=== PATIENT | male | born 1985 | race Two or more races ===

== ENCOUNTER 2020-01-15 16:23 | Inpatient (IN) | payer MEDICAID, OTHER ==
[~2020-01-15] VITALS: Ht 180.3 cm; Wt 68.4 kg
[2020-01-15 16:54] LABS: Urine WBC None Seen /hpf (0 - 3)
[2020-01-15] MEDS ORDERED: FUROSEMIDE 40 MG/4 ML VIAL IV ONE (17:15)
[2020-01-15 17:20] LABS: Amphetamine Screen, Urine POSITIVE (NEGATIVE); Barbiturate Scree,Urine NEGATIVE (NEGATIVE); Benzodiazephine Screen, Urine NEGATIVE (NEGATIVE); Cannabinoid Screen, Urine NEGATIVE (NEGATIVE); Cocaine Screen, Urine NEGATIVE (NEGATIVE); Opiate Scree,Urine NEGATIVE (NEGATIVE); Phencyclidine Screen, Urine NEGATIVE (NEGATIVE)
[2020-01-15 17:27] LABS: Basophils # (auto) 0.1 10 ^3/uL (0-0.2); Basophils % (auto) 1.9 % (0.0-2.0); Eosinophils # (auto) 0.1 10 ^3/uL (0-0.8); Eosinophils % (auto) 1.7 % (0.0-7.0); Hematocrit 40.6 % (41.0-53.0); Hemoglobin 13.3 g/dL (13.5-17.5); Lymphocytes # (auto) 0.9 10 ^3/uL (0.4-5.4); Lymphocytes % (auto) 19.9 % (10.0-50.0); Mean Corpuscular Hemoglobin 30.5 pg (28.0-32.0); Mean Corpuscular Hgb Conc. 32.8 g/dL (32.0-36.0); Monocytes # (auto) 0.4 10 ^3/uL (0-1.3); Monocytes % (auto) 8.1 % (0.0-12.0); Neutrophils # (auto) 3.2 10 ^3/uL (1.6-8.6); Neutrophils % (auto) 68.4 % (37.0-80.0); Nucleated Red Blood Cells % 0.1 %; Platelet Count (auto) 254 10^3/uL (140-450); Red Blood Cells 4.37 10^6/uL (4.5-5.90); Red Cell Distribution Width 14.2 % (11.8-14.3); White Blood Cell 4.7 10^3/uL (4.4-10.8)
[2020-01-15 17:29] LABS: Urine Bacteria NONE SEEN /hpf (None Seen); Urine Blood Negative /uL (Negative); Urine Hyaline Cast FEW /lpf (0 - 2); Urine Specific Gravity 1.028 (1.001-1.035)
[2020-01-15 17:37] LABS: Albumin 2.7 g/dL (3.4-5.0); Anion Gap 10 (5-15); Blood Urea Nitrogen 14 mg/dL (7-18); Calcium 7.8 mg/dL (8.5-10.1); Carbon Dioxide 17 mmol/L (21-32); Chloride 106 mmol/L (98-107); Glucose 103 mg/dL (74-106); Potassium 4.1 mmol/L (3.5-5.1); Sodium 133 mmol/L (136-145)
[2020-01-15 17:42] LABS: Alanine Aminotransferase 78 U/L (16-61); Alkaline Phosphatase 126 U/L (45-117); Aspartate Aminotransferase 121 U/L (15-37); BUN/Creatinine Ratio 14.9; Bilirubin, Total 1.1 mg/dL (0.2-1.0); GFR African American 117 mL/min; GFR Non-African American 97 mL/min; Total Protein 6.5 g/dL (6.4-8.2)
[2020-01-15] MEDS ORDERED: NITROGLYCERIN 0.4 MG SL TAB SL PRN (18:30)
[2020-01-15] MEDS ORDERED: ONDANSETRON HCL 4 MG/2 ML VIAL IV PRN (18:30)
[2020-01-15] MEDS ORDERED: ACETAMINOPHEN 500 MG TAB PO PRN (18:30)
[2020-01-15] MEDS ORDERED: HYDROcodone-ACET 5/325MG TAB PO PRN (18:30)
[2020-01-15] MEDS ORDERED: LORazepam 2MG/ML-1ML VIAL IV PRN (18:30)
[2020-01-15] MEDS ORDERED: MORPHINE SULF INJ 2 MG/ML SYRINGE 1ML IV PRN ×2 (18:30)
[2020-01-15 22:00] VITALS: BP 116/65
[2020-01-15] MEDS: ATORVASTATIN 20 MG TAB PO SCH (22:00)
[2020-01-15] MEDS: CARVEDILOL 3.125 MG TAB PO SCH (22:32)
[2020-01-15 22:34] VITALS: BP 116/65
[2020-01-15] MEDS ORDERED: PNEUMOCOCCAL VACC POLYS 25 MCG/0.5 ML VIAL IM ONE (23:00)
[2020-01-16 05:00] VITALS: BP 128/78
[2020-01-16 06:18] LABS: Basophils # (auto) 0 10 ^3/uL (0-0.2); Basophils % (auto) 0.5 % (0.0-2.0); Eosinophils # (auto) 0.1 10 ^3/uL (0-0.8); Eosinophils % (auto) 1.1 % (0.0-7.0); Hematocrit 40.7 % (41.0-53.0); Hemoglobin 13.6 g/dL (13.5-17.5); Lymphocytes # (auto) 0.5 10 ^3/uL (0.4-5.4); Lymphocytes % (auto) 9.8 % (10.0-50.0); Mean Corpuscular Hemoglobin 30.6 pg (28.0-32.0); Mean Corpuscular Hgb Conc. 33.3 g/dL (32.0-36.0); Mean Corpuscular Volume 91.9 fL (80.0-100.0); Monocytes # (auto) 0.3 10 ^3/uL (0-1.3); Monocytes % (auto) 6.6 % (0.0-12.0); Neutrophils # (auto) 4.3 10 ^3/uL (1.6-8.6); Platelet Count (auto) 243 10^3/uL (140-450); Red Blood Cells 4.43 10^6/uL (4.5-5.90); Red Cell Distribution Width 14.1 % (11.8-14.3); White Blood Cell 5.2 10^3/uL (4.4-10.8)
[2020-01-16 06:24] LABS: INR 1.14 (0.9-1.15); Partial Thromboplastin Time 25.4 sec (23.64-32.05)
[2020-01-16 06:27] LABS: Chloride 103 mmol/L (98-107); Potassium 3.2 mmol/L (3.5-5.1); Sodium 134 mmol/L (136-145)
[2020-01-16 06:37] LABS: Anion Gap 11 (5-15); BUN/Creatinine Ratio 15.9; Blood Urea Nitrogen 13 mg/dL (7-18); Calcium 7.7 mg/dL (8.5-10.1); Carbon Dioxide 20 mmol/L (21-32); GFR African American 138 mL/min; GFR Non-African American 114 mL/min; Glucose 81 mg/dL (74-106); Magnesium 1.8 mg/dL (1.6-2.6)
[2020-01-16 08:33] VITALS: BP 128/82
[2020-01-16] MEDS: FAMOTIDINE 20 MG TAB PO SCH (09:33)
[2020-01-16] MEDS: LISINOPRIL 10 MG TAB PO SCH (09:34)
[2020-01-16] MEDS: CARVEDILOL 3.125 MG TAB PO SCH (09:34)
[2020-01-16] MEDS: ASPirin-EC 81 mg tab PO SCH (09:34)
[2020-01-16 12:33] VITALS: BP 113/79
[2020-01-16 14:06] LABS: Cholesterol 104 mg/dL (< 200)
[2020-01-16 14:08] LABS: HDL Cholesterol 48 mg/dL (40-59); LDL Cholesterol 57 mg/dL (< 100); Triglycerides 67 mg/dL (< 150)
[2020-01-16] MEDS ORDERED: POTASSIUM CHL 20 Meq TABLET PO ONE (14:30)
[2020-01-16] MEDS ORDERED: NICOTINE 14 MG/24HR TOPICAL PATCH TD ONE (15:00)
[2020-01-16 16:33] VITALS: BP 111/77
[2020-01-16] MEDS: FOLIC ACID 1 MG, MULTIPLE VITAMIN 10 ML, MAGNESIUM SULF SDV 50% 8 MEQ, THIAMINE INJ 100... INJ SCH ×5 (16:41)
[2020-01-16] MEDS: POTASSIUM CHL 20 Meq TABLET PO SCH (18:26)
[2020-01-16] MEDS: FUROSEMIDE 40 MG/4 ML VIAL IV SCH (18:26)
[2020-01-16] MEDS: CARVEDILOL 12.5 MG TAB PO SCH (18:27)
[2020-01-16 22:00] VITALS: BP 100/62
[2020-01-16] MEDS: ATORVASTATIN 20 MG TAB PO SCH (22:15)
[2020-01-17 05:00] VITALS: BP 102/66
[2020-01-17] MEDS: FUROSEMIDE 40 MG/4 ML VIAL IV SCH ×2 (06:00→18:00)
[2020-01-17 09:00] VITALS: BP 114/69
[2020-01-17] MEDS: POTASSIUM CHL 20 Meq TABLET PO SCH (10:00)
[2020-01-17] MEDS: ASPirin-EC 81 mg tab PO SCH (10:00)
[2020-01-17] MEDS ORDERED: NICOTINE 14 MG/24HR TOPICAL PATCH TD SCH (10:00)
[2020-01-17] MEDS: LISINOPRIL 10 MG TAB PO SCH (10:01)
[2020-01-17] MEDS: FAMOTIDINE 20 MG TAB PO SCH (10:01)
[2020-01-17] MEDS: CARVEDILOL 12.5 MG TAB PO SCH (10:01)
[2020-01-17] MEDS: FOLIC ACID 1 MG, MULTIPLE VITAMIN 10 ML, MAGNESIUM SULF SDV 50% 8 MEQ, THIAMINE INJ 100... INJ SCH ×5 (12:00)
[2020-01-17 13:00] VITALS: BP 89/62
[2020-01-17 17:00] VITALS: BP 104/64
[2020-01-17 21:01] VITALS: BP 103/72
[2020-01-17 21:46] VITALS: BP 103/72
== END 2020-01-17 20:08 | disposition home or self-care (01) | DRG 194 ==
LOC: ER 16:23 → TELE 16:24 → TELE-CENTR 16:24 → UNDOADMIN 16:24
PROVIDERS: ADMIT Nurse Practitioner Acute Care; ATTEND Family Medicine
DX: I50.43 Acute on chronic combined systolic (congestive) and diastolic (congestive) heart failure (principal); E44.0 Moderate protein-calorie malnutrition; I42.7 Cardiomyopathy due to drug and external agent; F17.210 Nicotine dependence, cigarettes, uncomplicated; F19.10 Other psychoactive substance abuse, uncomplicated; E87.6 Hypokalemia; F10.10 Alcohol abuse, uncomplicated; F15.10 Other stimulant abuse, uncomplicated; Z59.0 Homelessness; Z68.21 Body mass index [BMI] 21.0-21.9, adult; Z79.899 Other long term (current) drug therapy; K80.20 Calculus of gallbladder without cholecystitis without obstruction
CPT/HCPCS: 36415; 71045; 76705; 80048; 80053; 80061; 80307; 81001; 83735; 83880; 84443; 84484; 85025; 85610; 85730; 86141; 93306; G0378

== ENCOUNTER 2020-01-30 16:08 | Inpatient (IN) | payer MEDICAID ==
[~2020-01-30] VITALS: Ht 180.3 cm; Wt 67.5 kg
[2020-01-30] MEDS ORDERED: CLINDAMYCIN 600MG IV 50 ML IV ONE (16:45)
[2020-01-30] MEDS ORDERED: FUROSEMIDE 40 MG/4 ML VIAL IV ONE (17:45)
[2020-01-30 19:09] LABS: Basophils # (auto) 0 10 ^3/uL (0-0.2); Basophils % (auto) 0.7 % (0.0-2.0); Eosinophils # (auto) 0 10 ^3/uL (0-0.8); Eosinophils % (auto) 0.4 % (0.0-7.0); Hematocrit 39.9 % (41.0-53.0); Hemoglobin 13.1 g/dL (13.5-17.5); Lymphocytes # (auto) 0.9 10 ^3/uL (0.4-5.4); Lymphocytes % (auto) 13.2 % (10.0-50.0); Mean Corpuscular Hemoglobin 30.5 pg (28.0-32.0); Mean Corpuscular Hgb Conc. 32.8 g/dL (32.0-36.0); Mean Corpuscular Volume 93.2 fL (80.0-100.0); Monocytes # (auto) 0.5 10 ^3/uL (0-1.3); Monocytes % (auto) 7.8 % (0.0-12.0); Neutrophils # (auto) 5.4 10 ^3/uL (1.6-8.6); Neutrophils % (auto) 77.9 % (37.0-80.0); Nucleated Red Blood Cells % 0.1 %; Platelet Count (auto) 296 10^3/uL (140-450); Red Blood Cells 4.29 10^6/uL (4.5-5.90); Red Cell Distribution Width 14.9 % (11.8-14.3); White Blood Cell 6.9 10^3/uL (4.4-10.8)
[2020-01-30 19:19] LABS: Urine Bacteria FEW /hpf (None Seen); Urine Blood Negative /uL (Negative); Urine Hyaline Cast FEW /lpf (0 - 2); Urine Mucus FEW (None Seen); Urine Specific Gravity 1.009 (1.001-1.035); Urine WBC 12 /hpf (0 - 3)
[2020-01-30 19:23] LABS: Albumin 2.8 g/dL (3.4-5.0); Anion Gap 10 (5-15); Blood Urea Nitrogen 18 mg/dL (7-18); Calcium 8.2 mg/dL (8.5-10.1); Carbon Dioxide 18 mmol/L (21-32); Chloride 101 mmol/L (98-107); Glucose 113 mg/dL (74-106); Lactic Acid w/Reflex 2.1 mmol/L (0.4-2.0); Potassium 4.5 mmol/L (3.5-5.1); Sodium 129 mmol/L (136-145)
[2020-01-30 19:34] LABS: Alanine Aminotransferase 640 U/L (16-61); Alkaline Phosphatase 171 U/L (45-117); Aspartate Aminotransferase 1050 U/L (15-37); BUN/Creatinine Ratio 14.6; Bilirubin, Total 2.8 mg/dL (0.2-1.0); GFR African American 86 mL/min; GFR Non-African American 71 mL/min; Total Protein 7.1 g/dL (6.4-8.2)
[2020-01-30] MEDS ORDERED: ONDANSETRON HCL 4 MG/2 ML VIAL IV PRN (21:00)
[2020-01-30] MEDS ORDERED: NITROGLYCERIN 0.4 MG SL TAB SL PRN (21:30)
[2020-01-30] MEDS ORDERED: MORPHINE SULF INJ 2 MG/ML SYRINGE 1ML IV PRN (21:30)
[2020-01-30 21:36] LABS: Alcohol, Urine < 3.0 mg/dL (0-10); Amphetamine Screen, Urine POSITIVE (NEGATIVE); Barbiturate Scree,Urine NEGATIVE (NEGATIVE); Benzodiazephine Screen, Urine NEGATIVE (NEGATIVE); Cannabinoid Screen, Urine NEGATIVE (NEGATIVE); Cocaine Screen, Urine NEGATIVE (NEGATIVE); Phencyclidine Screen, Urine NEGATIVE (NEGATIVE)
[2020-01-30] MEDS: FOLIC ACID 1 MG, MULTIPLE VITAMIN 10 ML, MAGNESIUM SULF SDV 50% 8 MEQ, THIAMINE INJ 100... INJ SCH ×5 (21:40)
[2020-01-30 21:41] LABS: INR 1.4 (0.9-1.15); Partial Thromboplastin Time 26.2 sec (23.64-32.05)
[2020-01-30 21:43] LABS: Opiate Scree,Urine NEGATIVE (NEGATIVE)
[2020-01-30] MEDS: CARVEDILOL 3.125 MG TAB PO SCH (21:46)
[2020-01-30 22:00] VITALS: BP 120/80
[2020-01-30] MEDS ORDERED: ATORVASTATIN 20 MG TAB PO SCH (22:00)
--- NOTE | 2020-01-30 22:32 | NUR ---
Telemetry admit from [facility] MARTINS admitted to Telemetry unit after SBAR received. Patient oriented to SOHAM BHATTI RN primary RN, unit, room, bed, and unit policies regarding patient care and visiting hours. Patient now on continuous telemetry monitoring, tele box #73 and telemetry reading on arrival to unit is sinus rhythm at 99. Patient placed on bedside oxygen, weighed by bed scale and encouraged to call if they need something. All questions and concerns addressed, patient verbalized understanding.
--- NOTE | 2020-01-30 23:00 | NUR ---
LIFE VEST Patient states that he was prescribed a Zoll Life Vest on pervious admission. However, he has not being wearing it and does not have it with him due to the fact the "it's kind of tight". Patient educated on the importance and function of the Zoll life Vest.
--- NOTE | 2020-01-30 23:04 | NUR ---
NASAL SPECIMEN COLLECTED FOR MRSA. SWAB SENT TO LAB VIA [employer] [facility].
--- NOTE | 2020-01-31 | NUR ---
Patient is requesting Nicotine patch. Hospitalist paged to request orders. Awaiting call back.
[2020-01-31] MEDS: TEMAZEPAM 15 MG CAP PO PRN (00:12)
--- NOTE | 2020-01-31 00:30 | NUR ---
Received call from Hospitalist, Ji Brothers NP. New orders received. read back and verified. Will follow through.
--- NOTE | 2020-01-31 04:29 | NUR ---
ADMISSION ASSESSMENT Admission assessment completed via paper charting due to system downtime. Please see copy in hard chart.
[2020-01-31 05:07] VITALS: BP 111/90
[2020-01-31 05:35] LABS: Basophils # (auto) 0 10 ^3/uL (0-0.2); Basophils % (auto) 0.8 % (0.0-2.0); Eosinophils # (auto) 0 10 ^3/uL (0-0.8); Eosinophils % (auto) 0.7 % (0.0-7.0); Hematocrit 37.6 % (41.0-53.0); Hemoglobin 12.6 g/dL (13.5-17.5); Lymphocytes # (auto) 1.3 10 ^3/uL (0.4-5.4); Lymphocytes % (auto) 20.6 % (10.0-50.0); Mean Corpuscular Hemoglobin 31.1 pg (28.0-32.0); Mean Corpuscular Hgb Conc. 33.6 g/dL (32.0-36.0); Mean Corpuscular Volume 92.5 fL (80.0-100.0); Monocytes # (auto) 0.6 10 ^3/uL (0-1.3); Monocytes % (auto) 8.7 % (0.0-12.0); Neutrophils # (auto) 4.4 10 ^3/uL (1.6-8.6); Neutrophils % (auto) 69.2 % (37.0-80.0); Nucleated Red Blood Cells % 0.2 %; Platelet Count (auto) 275 10^3/uL (140-450); Red Blood Cells 4.06 10^6/uL (4.5-5.90); Red Cell Distribution Width 14.3 % (11.8-14.3); White Blood Cell 6.4 10^3/uL (4.4-10.8)
[2020-01-31 05:52] LABS: Albumin 2.5 g/dL (3.4-5.0); Calcium 7.7 mg/dL (8.5-10.1); Potassium 3.7 mmol/L (3.5-5.1)
[2020-01-31 05:55] LABS: BUN/Creatinine Ratio 16.9; Bilirubin, Total 2.6 mg/dL (0.2-1.0); Total Protein 6.5 g/dL (6.4-8.2)
[2020-01-31] MEDS ORDERED: FUROSEMIDE 20 MG/2 ML VIAL IV SCH (06:00)
[2020-01-31 09:00] VITALS: BP 112/71
[2020-01-31] MEDS: PANTOPRAZOLE 40 MG TAB PO SCH (09:28)
[2020-01-31] MEDS: CARVEDILOL 3.125 MG TAB PO SCH ×2 (09:28→22:00)
[2020-01-31] MEDS: LACTULOSE 20Gm/30ML SOLN PO SCH (09:29)
[2020-01-31] MEDS: NICOTINE 14 MG/24HR TOPICAL PATCH TD SCH (10:00)
[2020-01-31] MEDS: FOLIC ACID 1 MG, MULTIPLE VITAMIN 10 ML, MAGNESIUM SULF SDV 50% 8 MEQ, THIAMINE INJ 100... INJ SCH ×5 (12:09)
[2020-01-31 13:00] VITALS: BP 104/69
[2020-01-31 17:00] VITALS: BP 101/76
[2020-01-31] MEDS: FUROSEMIDE 40 MG/4 ML VIAL IV SCH (18:24)
[2020-01-31 22:00] VITALS: BP 102/69
[2020-01-31] MEDS: POTASSIUM CHL 10 Meq TABLET PO SCH (22:00)
[2020-02-01] MEDS: TEMAZEPAM 15 MG CAP PO PRN ×2 (00:12→22:10)
[2020-02-01] MEDS: chlordiazePOXIDE HCL 25 MG CAP PO PRN (01:27)
--- NOTE | 2020-02-01 03:24 | NUR ---
Pt again asking for something for sleep. Pt states, "They gave me something last night that was red and started with a D I think." This RN told him he had already had sleep medication and Librium to help him relax, and that doctors do not rx sleeping meds after 0230 as pt's then are too sleepy to talk with doctors or participate well in care.
[2020-02-01 05:00] VITALS: BP 100/60
[2020-02-01] MEDS: FUROSEMIDE 40 MG/4 ML VIAL IV SCH ×2 (06:00→17:41)
--- NOTE | 2020-02-01 06:39 | NUR ---
Lasix 40mg IVP held as pt's bp 100/60 and HR 58. Pt sleeping without s/sx discomfort. Will endorse to day RN.
[2020-02-01 06:59] LABS: INR 1.18 (0.9-1.15)
[2020-02-01 07:02] LABS: Albumin 2.3 g/dL (3.4-5.0); Calcium 7.6 mg/dL (8.5-10.1)
[2020-02-01 07:07] LABS: Bilirubin, Total 1.4 mg/dL (0.2-1.0); Total Protein 6.3 g/dL (6.4-8.2)
[2020-02-01 07:30] LABS: Potassium 2.8 mmol/L (3.5-5.1)
--- NOTE | 2020-02-01 07:30 | NUR ---
Opening Shift Note Assumed care of patient, awake and alert. No S/S of distress/SOB or pain. Instructed on POC and to call for assist PRN, will continue to monitor for changes Q1hr and PRN. Fall precautions in place per safety protocol.
--- NOTE | 2020-02-01 07:35 | NUR ---
Critical Lab Received critical lab value for potassium 2.8. Paged MD Mckeon for orders, awaiting call back at this time. Will cont to monitor patient.
[2020-02-01] MEDS: POTASSIUM CHL 20 Meq TABLET PO SCH ×3 (08:50→22:10)
[2020-02-01] MEDS: LISINOPRIL 5 MG TAB PO SCH (10:00)
[2020-02-01 10:07] LABS: Hepatitis B Surface Antibody Negative
[2020-02-01] MEDS: CARVEDILOL 3.125 MG TAB PO SCH ×2 (10:15→22:09)
[2020-02-01] MEDS: LACTULOSE 20Gm/30ML SOLN PO SCH (10:15)
[2020-02-01] MEDS: PANTOPRAZOLE 40 MG TAB PO SCH (10:15)
[2020-02-01] MEDS: POTASSIUM CHL 10 Meq TABLET PO SCH (10:15)
[2020-02-01] MEDS: NICOTINE 14 MG/24HR TOPICAL PATCH TD SCH (10:16)
[2020-02-01 10:38] LABS: Hepatitis A Total Antibody Positive
--- NOTE | 2020-02-01 11:45 | NUR ---
Hospitalist at bedside MD Mckeon at bedside, aware of patient status including low potassium and potassium supplements receive at this time. New orders for right rib xray and cmp order for 1300 received. Will carry out new orders and will cont to monitor patient.
[2020-02-01] MEDS: FOLIC ACID 1 MG, MULTIPLE VITAMIN 10 ML, MAGNESIUM SULF SDV 50% 8 MEQ, THIAMINE INJ 100... INJ SCH ×5 (11:52)
[2020-02-01 12:02] LABS: Hepatitis B Surface Antigen Negative (Negative); Hepatitis C Antibody Negative (Negative)
[2020-02-01 12:03] LABS: Hepatitis B Core Total AB Negative
[2020-02-01 13:45] LABS: Albumin 2.5 g/dL (3.4-5.0); Calcium 7.8 mg/dL (8.5-10.1); Potassium 3.8 mmol/L (3.5-5.1)
[2020-02-01 13:49] LABS: Bilirubin, Total 1.2 mg/dL (0.2-1.0); Total Protein 6.8 g/dL (6.4-8.2)
--- NOTE | 2020-02-01 14:15 | NUR ---
Cardiology Extra Hand ADÁN Ford at bedside. Orders for EKG received, Will carry out new orders and will cont to monitor patient.
[2020-02-01 17:00] VITALS: BP 93/72
--- NOTE | 2020-02-01 19:32 | NUR ---
Opening Shift Note Received report and assumed care of patient. Patient is awake and alert. No signs or symptoms of distress noted, patient currently denies pain. Instructed patient on plan of care and to call for assistance as needed. Will continue to monitor.
[2020-02-01 22:00] VITALS: BP 109/71
[2020-02-02 05:00] VITALS: BP 99/73
[2020-02-02] MEDS: chlordiazePOXIDE HCL 25 MG CAP PO PRN (06:01)
[2020-02-02] MEDS: FUROSEMIDE 40 MG/4 ML VIAL IV SCH ×2 (06:02→17:59)
[2020-02-02 07:46] LABS: Albumin 2.6 g/dL (3.4-5.0); Calcium 8.1 mg/dL (8.5-10.1); Magnesium 2.2 mg/dL (1.6-2.6); Potassium 3.2 mmol/L (3.5-5.1)
[2020-02-02 07:49] LABS: BUN/Creatinine Ratio 17.8; Bilirubin, Total 1.1 mg/dL (0.2-1.0); Total Protein 6.8 g/dL (6.4-8.2)
[2020-02-02 09:00] VITALS: BP 114/83
[2020-02-02] MEDS: LACTULOSE 20Gm/30ML SOLN PO SCH (09:49)
[2020-02-02] MEDS: CARVEDILOL 3.125 MG TAB PO SCH ×2 (09:51→21:08)
[2020-02-02] MEDS: NICOTINE 14 MG/24HR TOPICAL PATCH TD SCH (09:51)
[2020-02-02] MEDS: PANTOPRAZOLE 40 MG TAB PO SCH (09:51)
[2020-02-02] MEDS: POTASSIUM CHL 20 Meq TABLET PO SCH ×2 (09:51→21:08)
[2020-02-02] MEDS: LISINOPRIL 5 MG TAB PO SCH (10:00)
--- NOTE | 2020-02-02 10:54 | NUR ---
Hospitalist MD Mckeon at bedside, aware of patient status. No new orders received at this time. Per MD Mckeon Cont current POC. Will cont to monitor patient.
[2020-02-02] MEDS ORDERED: POTASSIUM CHL 20 Meq TABLET PO ONE (12:45)
[2020-02-02] MEDS: FOLIC ACID 1 MG, MULTIPLE VITAMIN 10 ML, MAGNESIUM SULF SDV 50% 8 MEQ, THIAMINE INJ 100... INJ SCH ×5 (12:46)
[2020-02-02 15:18] VITALS: BP 108/78
[2020-02-02 18:00] VITALS: BP 108/82
--- NOTE | 2020-02-02 19:08 | NUR ---
Endorse report to GEMMA Lee Patient in no distress, sob, or pain at this time.
[2020-02-02 20:00] VITALS: BP 104/64
[2020-02-02 22:00] VITALS: BP_SYST 101; BP_SYST 104; BP_DIAS 64
[2020-02-02] MEDS: TEMAZEPAM 15 MG CAP PO PRN (23:59)
--- NOTE | 2020-02-03 02:08 | NUR ---
rounds Patient is comfortably sleeping in bed. Breath sounds are even and unlabored. Bed at lowest locked position and call light within reach. Will continue to monitor PRN.
--- NOTE | 2020-02-03 03:29 | NUR ---
Opening Shift Note: Assumed care of patient. Patient asleep at this time. No S/S of distress/SOB or pain. Bed in lowest locked position, side rails up x 2, call light within reach. Patient will be instructed on POC and to call for assist PRN, will continue to monitor for changes Q1hr and PRN.
[2020-02-03 05:00] VITALS: BP 101/78
[2020-02-03] MEDS: FUROSEMIDE 40 MG/4 ML VIAL IV SCH ×2 (05:33→17:34)
[2020-02-03 07:44] LABS: Albumin 2.4 g/dL (3.4-5.0); Calcium 8.1 mg/dL (8.5-10.1); Potassium 3.3 mmol/L (3.5-5.1)
[2020-02-03 07:47] LABS: BUN/Creatinine Ratio 16.8
[2020-02-03 07:49] LABS: Total Protein 6.5 g/dL (6.4-8.2)
[2020-02-03 09:30] VITALS: BP 113/86
[2020-02-03] MEDS: PANTOPRAZOLE 40 MG TAB PO SCH (09:35)
[2020-02-03] MEDS: POTASSIUM CHL 20 Meq TABLET PO SCH ×2 (09:35→21:22)
[2020-02-03] MEDS: LACTULOSE 20Gm/30ML SOLN PO SCH (09:35)
[2020-02-03] MEDS: LISINOPRIL 5 MG TAB PO SCH (09:35)
[2020-02-03] MEDS: NICOTINE 14 MG/24HR TOPICAL PATCH TD SCH (09:35)
[2020-02-03] MEDS: CARVEDILOL 3.125 MG TAB PO SCH ×2 (09:36→21:24)
[2020-02-03 12:32] VITALS: BP 104/67
--- NOTE | 2020-02-03 14:17 | NUR ---
Patient made NPO at this time.
[2020-02-03] MEDS: FOLIC ACID 1 MG, MULTIPLE VITAMIN 10 ML, MAGNESIUM SULF SDV 50% 8 MEQ, THIAMINE INJ 100... INJ SCH ×5 (14:35)
[2020-02-03] MEDS ORDERED: POTASSIUM CHL 20 Meq TABLET PO ONE (15:15)
[2020-02-03 17:02] VITALS: BP 102/71
[2020-02-03] MEDS ORDERED: IOHEXOL 350 MG/ML 100ML IJ ONE (17:50)
--- NOTE | 2020-02-03 18:58 | NUR ---
CLOSING NOTE: Patient resting in bed. No S/S of pain or distress. Care endorsed to NOC RN.
--- NOTE | 2020-02-03 20:00 | NUR ---
Opening Shift Note Assumed care of patient, awake and alert. No S/S of distress/SOB or pain. Instructed on POC and to call for assist PRN, will continue to monitor for changes Q1hr and PRN.
[2020-02-03 22:00] VITALS: BP 106/63
[2020-02-04] MEDS: TEMAZEPAM 15 MG CAP PO PRN ×2 (01:51→22:33)
[2020-02-04 05:00] VITALS: BP 108/72
[2020-02-04 05:45] VITALS: BP 108/72
[2020-02-04] MEDS: FUROSEMIDE 40 MG/4 ML VIAL IV SCH ×2 (05:46→17:15)
[2020-02-04 06:08] LABS: Potassium 3.7 mmol/L (3.5-5.1)
[2020-02-04 06:22] LABS: Albumin 2.4 g/dL (3.4-5.0); Bilirubin, Direct 0.4 mg/dL (0-0.2); Bilirubin, Total 0.8 mg/dL (0.2-1.0); Total Protein 6.3 g/dL (6.4-8.2)
--- NOTE | 2020-02-04 07:23 | NUR ---
Care report given to Violeta Monsivais, patient is resting no distress.
--- NOTE | 2020-02-04 07:25 | NUR ---
Opening Shift Note: Assumed care of patient. Patient sleeping at this time. No S/S of distress/SOB or pain. Bed in lowest locked position, side rails up x 2, call light within reach. Patient instructed on POC and to call for assist PRN, will continue to monitor for changes Q1hr and PRN.
[2020-02-04 09:07] VITALS: BP 104/78
[2020-02-04] MEDS: CARVEDILOL 3.125 MG TAB PO SCH ×2 (09:22→21:34)
[2020-02-04] MEDS: LACTULOSE 20Gm/30ML SOLN PO SCH (09:22)
[2020-02-04] MEDS: POTASSIUM CHL 20 Meq TABLET PO SCH ×2 (09:23→21:31)
[2020-02-04] MEDS: PANTOPRAZOLE 40 MG TAB PO SCH (09:23)
[2020-02-04] MEDS: LISINOPRIL 5 MG TAB PO SCH (09:24)
[2020-02-04] MEDS: NICOTINE 14 MG/24HR TOPICAL PATCH TD SCH (09:24)
[2020-02-04] MEDS: FOLIC ACID 1 MG, MULTIPLE VITAMIN 10 ML, MAGNESIUM SULF SDV 50% 8 MEQ, THIAMINE INJ 100... INJ SCH ×5 (12:00)
[2020-02-04] MEDS ORDERED: levoFLOXacin 750MG 150 ML IV ONE (12:15)
[2020-02-04 12:47] VITALS: BP 101/67
--- NOTE | 2020-02-04 14:50 | NUR ---
Nutrition Assessment Notes Please refer to link for full assessment notes. Est Energy needs: 1396-5021 kcals (30-35 kcal/kgBW) Est Protein needs: 86-98 gms/day (0.8-1.0 gm/kgBW) d/t liver disease Will continue to monitor and reassess prn. Addendum: 02/04/20 at [address] Amended: Links added.
--- NOTE | 2020-02-04 15:45 | NUR ---
IV insertion: IV access obtained, via clean sterile technique by inserting 20 gauge catheter at left forearm after 1 attempt. IV secured properly. No trauma to site. Patient tolerated well. IV removal: 20 g right forearm IV DC'd with clean sterile technique, catheter fully intact. Pressure dressing applied to site. Patient tolerated well.
[2020-02-04 17:31] VITALS: BP 105/71
--- NOTE | 2020-02-04 18:56 | NUR ---
CLOSING NOTE: Patient resting in bed. No S/S of SOB, pain or distress. Care endorsed to NOC RN.
--- NOTE | 2020-02-04 20:00 | NUR ---
Opening Shift Note Assumed care of patient, awake and alert. No S/S of distress/SOB or pain. Instructed on POC and to call for assist PRN, will continue to monitor for changes Q1hr and PRN.Asked for snack, given herb cummings.
[2020-02-04 22:00] VITALS: BP 107/61
[2020-02-05 05:00] VITALS: BP 102/59
[2020-02-05] MEDS: FUROSEMIDE 40 MG/4 ML VIAL IV SCH ×2 (05:48→18:39)
[2020-02-05 07:14] LABS: Albumin 2.6 g/dL (3.4-5.0); Calcium 8.8 mg/dL (8.5-10.1); Magnesium 2.3 mg/dL (1.6-2.6); Potassium 4.2 mmol/L (3.5-5.1)
[2020-02-05 07:17] LABS: BUN/Creatinine Ratio 15.1; Bilirubin, Total 0.7 mg/dL (0.2-1.0); Total Protein 6.9 g/dL (6.4-8.2)
--- NOTE | 2020-02-05 07:22 | NUR ---
Report given to Violeta Monsivais, patient is resting no distress.
--- NOTE | 2020-02-05 07:24 | NUR ---
Opening Shift Note: Assumed care of patient. Patient asleep at this time. No S/S of distress/SOB or pain. Bed in lowest locked position, side rails up x 2, call light within reach. Patient instructed on POC and to call for assist PRN, will continue to monitor for changes Q1hr and PRN.
[2020-02-05 09:00] VITALS: BP 113/78
[2020-02-05] MEDS: levoFLOXacin 750MG 150 ML IV SCH (09:28)
[2020-02-05] MEDS: LACTULOSE 20Gm/30ML SOLN PO SCH (09:28)
[2020-02-05] MEDS: POTASSIUM CHL 20 Meq TABLET PO SCH ×2 (09:29→21:44)
[2020-02-05] MEDS: PANTOPRAZOLE 40 MG TAB PO SCH (09:29)
[2020-02-05] MEDS: CARVEDILOL 3.125 MG TAB PO SCH ×2 (09:29→21:44)
[2020-02-05] MEDS: NICOTINE 14 MG/24HR TOPICAL PATCH TD SCH (09:30)
[2020-02-05] MEDS: LISINOPRIL 5 MG TAB PO SCH (09:30)
[2020-02-05] MEDS: FOLIC ACID 1 MG, MULTIPLE VITAMIN 10 ML, MAGNESIUM SULF SDV 50% 8 MEQ, THIAMINE INJ 100... INJ SCH ×5 (12:00)
[2020-02-05 13:00] VITALS: BP 107/63
--- NOTE | 2020-02-05 15:30 | NUR ---
THORACENTESIS COMPLETED BY DR GIANG IN ULTRASOUND. PT TOLERATED WELL. 900 ML OF PLEURAL FLUID REMOVED AND SENT TO LAB. POST CXR DONE.
--- NOTE | 2020-02-05 16:43 | NUR ---
ss consult Per consult no PCP. Lorena Ewing seen patient for PCP. Addendum: 02/05/20 at 1643 by Lorena LEONARD Amended: Links added.
[2020-02-05 17:00] VITALS: BP 97/73
[2020-02-05] MEDS: TEMAZEPAM 15 MG CAP PO PRN (21:44)
[2020-02-05 22:00] VITALS: BP 120/73
--- NOTE | 2020-02-06 02:57 | NUR ---
CLOSING NOTE: Patient asleep in bed. No S/S of SOB or distress. Care endorsed.
[2020-02-06 05:00] VITALS: BP 97/69
[2020-02-06 05:40] LABS: Basophils # (auto) 0.1 10 ^3/uL (0-0.2); Basophils % (auto) 1.2 % (0.0-2.0); Eosinophils # (auto) 0.1 10 ^3/uL (0-0.8); Eosinophils % (auto) 1.7 % (0.0-7.0); Hematocrit 42.2 % (41.0-53.0); Hemoglobin 13.9 g/dL (13.5-17.5); Lymphocytes # (auto) 1.4 10 ^3/uL (0.4-5.4); Lymphocytes % (auto) 26.2 % (10.0-50.0); Mean Corpuscular Hemoglobin 30.3 pg (28.0-32.0); Mean Corpuscular Volume 91.9 fL (80.0-100.0); Monocytes # (auto) 0.5 10 ^3/uL (0-1.3); Monocytes % (auto) 9.7 % (0.0-12.0); Neutrophils # (auto) 3.2 10 ^3/uL (1.6-8.6); Neutrophils % (auto) 61.2 % (37.0-80.0); Nucleated Red Blood Cells % 0.2 %; Platelet Count (auto) 298 10^3/uL (140-450); Red Cell Distribution Width 14.6 % (11.8-14.3); White Blood Cell 5.2 10^3/uL (4.4-10.8)
[2020-02-06 05:56] LABS: Calcium 8.3 mg/dL (8.5-10.1); Potassium 3.9 mmol/L (3.5-5.1)
[2020-02-06 06:01] LABS: Albumin 2.4 g/dL (3.4-5.0); BUN/Creatinine Ratio 22.4; Bilirubin, Total 0.6 mg/dL (0.2-1.0); Total Protein 6.4 g/dL (6.4-8.2)
[2020-02-06] MEDS: FUROSEMIDE 40 MG/4 ML VIAL IV SCH (06:33)
[2020-02-06 09:00] VITALS: BP 95/66
[2020-02-06] MEDS: CARVEDILOL 3.125 MG TAB PO SCH (10:00)
[2020-02-06] MEDS: LISINOPRIL 5 MG TAB PO SCH (10:00)
[2020-02-06] MEDS: LACTULOSE 20Gm/30ML SOLN PO SCH (10:32)
[2020-02-06] MEDS: POTASSIUM CHL 20 Meq TABLET PO SCH (10:33)
[2020-02-06] MEDS: PANTOPRAZOLE 40 MG TAB PO SCH (10:33)
[2020-02-06] MEDS: NICOTINE 14 MG/24HR TOPICAL PATCH TD SCH (10:34)
[2020-02-06] MEDS: levoFLOXacin 750MG 150 ML IV SCH (10:35)
--- NOTE | 2020-02-06 10:39 | NUR ---
Per social economist Arleen, patient refusing rehab resources.
[2020-02-06] MEDS ORDERED: FURO1TAB31 PO (12:12)
[2020-02-06] MEDS ORDERED: CAR3125T PO (12:12)
[2020-02-06] MEDS ORDERED: NIC21P TOP (12:12)
[2020-02-06] MEDS ORDERED: POTA-220 PO (12:12)
[2020-02-06] MEDS ORDERED: PANT40T PO (12:12)
[2020-02-06] MEDS ORDERED: ASPI-378 PO (12:12)
[2020-02-06] MEDS ORDERED: LISI-275 PO (12:12)
[2020-02-06] MEDS ORDERED: LEVO500T21 PO (12:12)
[2020-02-06 13:00] VITALS: BP 101/76
[2020-02-06] MEDS: chlordiazePOXIDE HCL 25 MG CAP PO PRN (14:03)
--- NOTE | 2020-02-06 15:14 | NUR ---
Discharge instructions given as ordered. Encourage to follow up with PMD as instructed. INSTRUCTED TO FOLLOW UP WITH POST-DISCHARGE OFFICE ALONG WITH Melissa HENSON AND Melissa BELTRÁN FOR CARDIOLOGY. PROVIDED PRESCRIPTION FOR FOLLOW UP LABS AND INSTRUCTED TO DISCONTINUE METH USE. PATIENT REFUSING REHAB RESOURCES.All questions and concerns addressed. Patient verbalized understanding. Medication reconciliation form completed and copy given to patient. IV removed with catheter intact, pressure dressing applied. Telemetry unit returned to ICU. Patient taken to vehicle via wheelchair with all personal belongings, accompanied by staff and family member. No distress noted at time of departure.
--- NOTE | 2020-02-06 17:16 | NUR ---
Assessment Patient is a 34-year-old male who is alert and oriented. Prior to admission patient lived with family and functioned independently. Advised patient there is a social service consult for substance abuse with meth. Patient stated he does not need any additional help. Patient refused resources. Informed GEMMA Workman. Addendum: 02/06/20 at 1719 by ISABEL LEONARD Amended: Links added.
== END 2020-02-06 15:14 | disposition home or self-care (01) | DRG 194 ==
LOC: ER 16:08 → TELE 16:09 → UNDOADMIN 16:09 → TELE-WESTW 16:09 → TELE 21:59
PROVIDERS: ADMIT Nurse Practitioner; ATTEND Internal Medicine
PROC: 0W993ZZ Drainage of Right Pleural Cavity, Percutaneous Approach (ICD-10-PCS; principal; 2020-02-05)
DX: I50.43 Acute on chronic combined systolic (congestive) and diastolic (congestive) heart failure (principal); J18.9 Pneumonia, unspecified organism; E44.0 Moderate protein-calorie malnutrition; I42.0 Dilated cardiomyopathy; J91.8 Pleural effusion in other conditions classified elsewhere; K70.9 Alcoholic liver disease, unspecified; E87.1 Hypo-osmolality and hyponatremia; Z91.14 Patient's other noncompliance with medication regimen; R79.89 Other specified abnormal findings of blood chemistry; E87.6 Hypokalemia; F17.210 Nicotine dependence, cigarettes, uncomplicated; F15.10 Other stimulant abuse, uncomplicated; K80.20 Calculus of gallbladder without cholecystitis without obstruction; Z59.0 Homelessness; Z71.6 Tobacco abuse counseling; F19.10 Other psychoactive substance abuse, uncomplicated; F10.10 Alcohol abuse, uncomplicated; Z68.22 Body mass index [BMI] 22.0-22.9, adult
CPT/HCPCS: 10022; 32555; 36415; 71045; 71046; 71101; 71275; 76700; 76942; 80053; 80076; 80307; 80320; 81001; 82140; 83605; 83735; 83880; 83986; 84132; 84484; 85025; 85379; 85610; 85730; 86704; 86706; 86708; 86803; 87040; 87205; 87340; 89051; 93970; 96365; 96366; 96375; 97163; G0378; J1956; J3490

== ENCOUNTER 2020-03-29 20:16 | Inpatient (IN) | payer MEDICAID, OTHER ==
[~2020-03-29] VITALS: Ht 180.3 cm; Wt 72.2 kg
[~2020-03-29 20:16] MED LIST: ASPI-378 PO; CAR3125T PO; FURO1TAB31 PO; LEVO500T21 PO; LISI-275 PO; NIC21P TOP; PANT40T PO; POTA-220 PO
[2020-03-29 22:48] LABS: Basophils # (auto) 0.3 10 ^3/uL (0-0.2); Basophils % (auto) 3.6 % (0.0-2.0); Eosinophils # (auto) 0.1 10 ^3/uL (0-0.8); Eosinophils % (auto) 0.8 % (0.0-7.0); Hematocrit 41.5 % (41.0-53.0); Hemoglobin 13.1 g/dL (13.5-17.5); Lymphocytes # (auto) 1.9 10 ^3/uL (0.4-5.4); Lymphocytes % (auto) 27.8 % (10.0-50.0); Mean Corpuscular Hemoglobin 29.2 pg (28.0-32.0); Mean Corpuscular Hgb Conc. 31.6 g/dL (32.0-36.0); Mean Corpuscular Volume 92.3 fL (80.0-100.0); Monocytes # (auto) 0.5 10 ^3/uL (0-1.3); Monocytes % (auto) 7.1 % (0.0-12.0); Neutrophils # (auto) 4.2 10 ^3/uL (1.6-8.6); Neutrophils % (auto) 60.7 % (37.0-80.0); Nucleated Red Blood Cells % 0.1 %; Platelet Count (auto) 320 10^3/uL (140-450); Red Cell Distribution Width 19.3 % (11.8-14.3); White Blood Cell 6.9 10^3/uL (4.4-10.8)
[2020-03-29 23:04] LABS: Albumin 3.4 g/dL (3.4-5.0); Anion Gap 6 (5-15); Blood Urea Nitrogen 10 mg/dL (7-18); Calcium 8.7 mg/dL (8.5-10.1); Carbon Dioxide 26 mmol/L (21-32); Chloride 103 mmol/L (98-107); Glucose 90 mg/dL (74-106); Potassium 3.9 mmol/L (3.5-5.1); Sodium 135 mmol/L (136-145)
[2020-03-29 23:10] LABS: Alanine Aminotransferase 45 U/L (16-61); Alkaline Phosphatase 172 U/L (45-117); Aspartate Aminotransferase 81 U/L (15-37); GFR African American 72 mL/min; GFR Non-African American 59 mL/min; Total Protein 8.1 g/dL (6.4-8.2)
[2020-03-29 23:31] LABS: INR 1.29 (0.9-1.15); Partial Thromboplastin Time 25.6 sec (23.0-31.2)
[2020-03-30] MEDS ORDERED: FUROSEMIDE 20 MG/2 ML VIAL IV ONE (02:45)
[2020-03-30] MEDS ORDERED: DexAMETHasone SOD PHOS 10MG/1ML VIAL INJ IV ONE (03:00)
[2020-03-30] MEDS ORDERED: DOXYCYCLINE 100MG/250ML 250 ML IV ONE (03:00)
[2020-03-30] MEDS ORDERED: ACETAMINOPHEN 500 MG TAB PO PRN (03:30)
[2020-03-30] MEDS ORDERED: LORazepam 0.5 MG TAB PO PRN (03:30)
[2020-03-30] MEDS ORDERED: MORPHINE SULF INJ 2 MG/ML SYRINGE 1ML IV PRN ×2 (03:30)
[2020-03-30] MEDS ORDERED: HYDROcodone-ACET 5/325MG TAB PO PRN (03:30)
[2020-03-30] MEDS ORDERED: ONDANSETRON HCL 4 MG/2 ML VIAL IV PRN (03:30)
[2020-03-30] MEDS ORDERED: NITROGLYCERIN 0.4 MG SL TAB SL PRN (03:30)
[2020-03-30] MEDS ORDERED: ACETAMINOPHEN 325 MG TAB PO PRN (03:30)
[2020-03-30] MEDS ORDERED: DOCUSATE SOD 100 MG CAP PO PRN (03:30)
[2020-03-30] MEDS ORDERED: ALBUTEROL SULF HFA 90MCG INH 200DOSE IN SCH (06:00)
[2020-03-30 06:32] LABS: Basophils # (auto) 0 10 ^3/uL (0-0.2); Basophils % (auto) 0.5 % (0.0-2.0); Eosinophils # (auto) 0 10 ^3/uL (0-0.8); Eosinophils % (auto) 0.4 % (0.0-7.0); Hematocrit 37.9 % (41.0-53.0); Hemoglobin 12.3 g/dL (13.5-17.5); Lymphocytes # (auto) 0.5 10 ^3/uL (0.4-5.4); Lymphocytes % (auto) 8.6 % (10.0-50.0); Mean Corpuscular Hemoglobin 29.9 pg (28.0-32.0); Mean Corpuscular Hgb Conc. 32.5 g/dL (32.0-36.0); Mean Corpuscular Volume 92.1 fL (80.0-100.0); Monocytes # (auto) 0.2 10 ^3/uL (0-1.3); Monocytes % (auto) 3.2 % (0.0-12.0); Neutrophils # (auto) 5.4 10 ^3/uL (1.6-8.6); Neutrophils % (auto) 87.3 % (37.0-80.0); Nucleated Red Blood Cells % 0.1 %; Platelet Count (auto) 321 10^3/uL (140-450); Red Blood Cells 4.12 10^6/uL (4.5-5.90); Red Cell Distribution Width 18.8 % (11.8-14.3); White Blood Cell 6.2 10^3/uL (4.4-10.8)
[2020-03-30 06:49] LABS: Urine Bacteria NONE SEEN /hpf (None Seen); Urine Blood Negative /uL (Negative); Urine Hyaline Cast FEW /lpf (0 - 2); Urine Mucus FEW (None Seen); Urine Specific Gravity 1.018 (1.001-1.035); Urine WBC 1 /hpf (0 - 3)
[2020-03-30 06:51] LABS: Calcium 8.3 mg/dL (8.5-10.1); Magnesium 2.2 mg/dL (1.6-2.6); Potassium 3.7 mmol/L (3.5-5.1)
[2020-03-30 06:56] LABS: BUN/Creatinine Ratio 8.4
[2020-03-30 07:04] LABS: Alcohol, Urine < 3.0 mg/dL (0-10); Amphetamine Screen, Urine POSITIVE (NEGATIVE); Barbiturate Scree,Urine NEGATIVE (NEGATIVE); Benzodiazephine Screen, Urine NEGATIVE (NEGATIVE); Cannabinoid Screen, Urine NEGATIVE (NEGATIVE); Cocaine Screen, Urine NEGATIVE (NEGATIVE); Opiate Scree,Urine NEGATIVE (NEGATIVE); Phencyclidine Screen, Urine NEGATIVE (NEGATIVE)
[2020-03-30 10:00] VITALS: BP 108/84
[2020-03-30] MEDS: FUROSEMIDE 40 MG/4 ML VIAL IV SCH ×2 (10:33→21:55)
[2020-03-30] MEDS: ZINC SULFATE 220mg CAP or TAB PO SCH (10:34)
[2020-03-30] MEDS: ENOXAPARIN SOD 40 MG/0.4 ML SYRINGE SC SCH (10:34)
[2020-03-30] MEDS: ASCORBIC ACID 1,000 MG TAB PO SCH (10:34)
[2020-03-30] MEDS: DOXYCYCLINE 100 MG TAB/CAP PO SCH ×2 (10:34→21:55)
[2020-03-30 13:00] VITALS: BP 107/84
[2020-03-30 17:00] VITALS: BP 117/77
[2020-03-30 20:00] VITALS: BP 108/84
[2020-03-30 22:00] VITALS: BP 117/86
[2020-03-31 05:00] VITALS: BP 114/82
[2020-03-31 07:37] LABS: Basophils # (auto) 0 10 ^3/uL (0-0.2); Basophils % (auto) 0.1 % (0.0-2.0); Eosinophils # (auto) 0 10 ^3/uL (0-0.8); Eosinophils % (auto) 0.1 % (0.0-7.0); Hematocrit 40.3 % (41.0-53.0); Hemoglobin 13.2 g/dL (13.5-17.5); Lymphocytes # (auto) 1.1 10 ^3/uL (0.4-5.4); Lymphocytes % (auto) 11.7 % (10.0-50.0); Mean Corpuscular Hemoglobin 30.3 pg (28.0-32.0); Mean Corpuscular Hgb Conc. 32.8 g/dL (32.0-36.0); Mean Corpuscular Volume 92.5 fL (80.0-100.0); Monocytes # (auto) 0.4 10 ^3/uL (0-1.3); Monocytes % (auto) 4.5 % (0.0-12.0); Neutrophils # (auto) 7.7 10 ^3/uL (1.6-8.6); Neutrophils % (auto) 83.6 % (37.0-80.0); Nucleated Red Blood Cells % 0.1 %; Platelet Count (auto) 338 10^3/uL (140-450); Red Blood Cells 4.36 10^6/uL (4.5-5.90); Red Cell Distribution Width 19.7 % (11.8-14.3); White Blood Cell 9.2 10^3/uL (4.4-10.8)
[2020-03-31 07:57] LABS: Albumin 2.9 g/dL (3.4-5.0); Calcium 8.3 mg/dL (8.5-10.1); Potassium 3.6 mmol/L (3.5-5.1)
[2020-03-31 08:02] LABS: Bilirubin, Total 2.2 mg/dL (0.2-1.0); Total Protein 7.2 g/dL (6.4-8.2)
[2020-03-31 09:00] VITALS: BP 118/82
[2020-03-31] MEDS ORDERED: cefTRIAXone 1GM/50ML D5W 50 ML IV ONE (09:15)
[2020-03-31] MEDS: DOXYCYCLINE 100 MG TAB/CAP PO SCH ×2 (09:41→22:04)
[2020-03-31] MEDS: ASCORBIC ACID 1,000 MG TAB PO SCH (09:42)
[2020-03-31] MEDS: FUROSEMIDE 40 MG/4 ML VIAL IV SCH ×2 (09:42→22:04)
[2020-03-31] MEDS: ENOXAPARIN SOD 40 MG/0.4 ML SYRINGE SC SCH (09:42)
[2020-03-31] MEDS: ZINC SULFATE 220mg CAP or TAB PO SCH (09:42)
[2020-03-31 13:00] VITALS: BP 109/74
[2020-03-31] MEDS ORDERED: DOXYCYCLINE 100 MG TAB/CAP PO ONE (13:15)
[2020-03-31] MEDS ORDERED: POTASSIUM EFFERVESENT TAB 25 MEQ PO ONE ×2 (13:15→15:45)
[2020-03-31 16:54] VITALS: BP 110/78
[2020-03-31 22:00] VITALS: BP 104/80
[2020-04-01 05:00] VITALS: BP 114/87
[2020-04-01 08:52] VITALS: BP 115/81
[2020-04-01] MEDS: ENOXAPARIN SOD 40 MG/0.4 ML SYRINGE SC SCH (08:57)
[2020-04-01] MEDS: ZINC SULFATE 220mg CAP or TAB PO SCH (08:58)
[2020-04-01] MEDS: FUROSEMIDE 40 MG/4 ML VIAL IV SCH (08:58)
[2020-04-01] MEDS: DOXYCYCLINE 100 MG TAB/CAP PO SCH (08:58)
[2020-04-01] MEDS ORDERED: cefTRIAXone 1GM/50ML D5W 50 ML IV SCH (09:00)
[2020-04-01] MEDS ORDERED: POTASSIUM EFFERVESENT TAB 25 MEQ PO SCH (10:00)
== END 2020-04-01 10:30 | disposition left against medical advice (07) | DRG 194 ==
LOC: ER 20:16 → TELE 20:17 → TELE-EAST 03-30 10:03 → TELE-CENTR 03-30 13:12
PROVIDERS: ADMIT Hospitalist; ATTEND Internal Medicine Nephrology
DX: I50.43 Acute on chronic combined systolic (congestive) and diastolic (congestive) heart failure (principal); L03.115 Cellulitis of right lower limb; I42.7 Cardiomyopathy due to drug and external agent; N17.0 Acute kidney failure with tubular necrosis; F15.250 Other stimulant dependence with stimulant-induced psychotic disorder with delusions; F17.210 Nicotine dependence, cigarettes, uncomplicated; I25.10 Atherosclerotic heart disease of native coronary artery without angina pectoris; R74.0 Nonspecific elevation of levels of transaminase and lactic acid dehydrogenase [LDH]; Z59.0 Homelessness; I42.0 Dilated cardiomyopathy; K70.9 Alcoholic liver disease, unspecified; K75.9 Inflammatory liver disease, unspecified; L03.116 Cellulitis of left lower limb; Z20.828 Contact with and (suspected) exposure to other viral communicable diseases; Z91.14 Patient's other noncompliance with medication regimen; Z91.19 Patient's noncompliance with other medical treatment and regimen; I47.2 Ventricular tachycardia; Z53.29 Procedure and treatment not carried out because of patient's decision for other reasons; Z79.899 Other long term (current) drug therapy
CPT/HCPCS: 36415; 71045; 80048; 80053; 80061; 80307; 81001; 83605; 83735; 83880; 84484; 85025; 85610; 85730; 87040; 93005; G0378; J0696; J1100; J3490

== ENCOUNTER 2020-04-13 12:44 | Emergency (ER) | payer MEDICAID, OTHER ==
[~2020-04-13] VITALS: Ht 180.3 cm; Wt 72.6 kg
[2020-04-13 13:43] LABS: Amphetamine Screen, Urine POSITIVE (NEGATIVE); Barbiturate Scree,Urine NEGATIVE (NEGATIVE); Benzodiazephine Screen, Urine NEGATIVE (NEGATIVE); Cannabinoid Screen, Urine NEGATIVE (NEGATIVE); Cocaine Screen, Urine NEGATIVE (NEGATIVE); Urine Bacteria FEW /hpf (None Seen); Urine Blood Negative /uL (Negative); Urine Hyaline Cast MOD /lpf (0 - 2); Urine Mucus FEW (None Seen); Urine Specific Gravity 1.017 (1.001-1.035); Urine WBC 2 /hpf (0 - 3)
[2020-04-13 13:51] LABS: Opiate Scree,Urine NEGATIVE (NEGATIVE); Phencyclidine Screen, Urine NEGATIVE (NEGATIVE)
[2020-04-13 15:41] LABS: Basophils # (auto) 0 10 ^3/uL (0-0.2); Basophils % (auto) 1.2 % (0.0-2.0); Eosinophils # (auto) 0 10 ^3/uL (0-0.8); Eosinophils % (auto) 0.9 % (0.0-7.0); Hematocrit 38.8 % (41.0-53.0); Hemoglobin 12.5 g/dL (13.5-17.5); Lymphocytes # (auto) 1.2 10 ^3/uL (0.4-5.4); Lymphocytes % (auto) 29.6 % (10.0-50.0); Mean Corpuscular Hemoglobin 30.1 pg (28.0-32.0); Mean Corpuscular Hgb Conc. 32.2 g/dL (32.0-36.0); Mean Corpuscular Volume 93.3 fL (80.0-100.0); Monocytes # (auto) 0.5 10 ^3/uL (0-1.3); Monocytes % (auto) 11.1 % (0.0-12.0); Neutrophils # (auto) 2.3 10 ^3/uL (1.6-8.6); Neutrophils % (auto) 57.2 % (37.0-80.0); Nucleated Red Blood Cells % 0.2 %; Platelet Count (auto) 196 10^3/uL (140-450); Red Blood Cells 4.16 10^6/uL (4.5-5.90); Red Cell Distribution Width 18.8 % (11.8-14.3); White Blood Cell 4.1 10^3/uL (4.4-10.8)
[2020-04-13 15:57] LABS: Albumin 3.1 g/dL (3.4-5.0); Calcium 7.8 mg/dL (8.5-10.1)
[2020-04-13 16:00] LABS: BUN/Creatinine Ratio 4.9; Bilirubin, Total 2.6 mg/dL (0.2-1.0); Total Protein 7.1 g/dL (6.4-8.2)
[2020-04-13 16:11] LABS: Potassium 2.7 mmol/L (3.5-5.1)
[2020-04-13] MEDS ORDERED: POTASSIUM EFFERVESENT TAB 25 MEQ PO ONE (16:30)
[2020-04-13 17:13] VITALS: BP 106/78
== END 2020-04-13 17:14 | disposition home or self-care (01) ==
LOC: ER 12:44
DX: F15.20 Other stimulant dependence, uncomplicated (principal); F10.10 Alcohol abuse, uncomplicated; E87.6 Hypokalemia; J18.9 Pneumonia, unspecified organism; I50.9 Heart failure, unspecified; F17.210 Nicotine dependence, cigarettes, uncomplicated
CPT/HCPCS: 36415; 71045; 80053; 80307; 81001; 83880; 85025; 93970

== ENCOUNTER 2020-04-17 08:21 | Inpatient (IN) | payer OTHER ==
[~2020-04-17] VITALS: Ht 180.3 cm; Wt 82.7 kg
[2020-04-17 08:51] LABS: Basophils # (auto) 0.1 10 ^3/uL (0-0.2); Basophils % (auto) 1.2 % (0.0-2.0); Eosinophils # (auto) 0 10 ^3/uL (0-0.8); Eosinophils % (auto) 0.7 % (0.0-7.0); Hematocrit 39.6 % (41.0-53.0); Hemoglobin 12.9 g/dL (13.5-17.5); Lymphocytes # (auto) 1.1 10 ^3/uL (0.4-5.4); Lymphocytes % (auto) 20.1 % (10.0-50.0); Mean Corpuscular Hemoglobin 30.7 pg (28.0-32.0); Mean Corpuscular Hgb Conc. 32.7 g/dL (32.0-36.0); Mean Corpuscular Volume 93.9 fL (80.0-100.0); Monocytes # (auto) 0.3 10 ^3/uL (0-1.3); Monocytes % (auto) 6.1 % (0.0-12.0); Neutrophils % (auto) 71.9 % (37.0-80.0); Nucleated Red Blood Cells % 0.2 %; Platelet Count (auto) 201 10^3/uL (140-450); Red Blood Cells 4.22 10^6/uL (4.5-5.90); Red Cell Distribution Width 18.9 % (11.8-14.3); White Blood Cell 5.6 10^3/uL (4.4-10.8)
[2020-04-17 08:53] LABS: Urine Bacteria FEW /hpf (None Seen); Urine Blood Negative /uL (Negative); Urine Hyaline Cast MOD /lpf (0 - 2); Urine Mucus FEW (None Seen); Urine Specific Gravity 1.021 (1.001-1.035); Urine WBC 3 /hpf (0 - 3)
[2020-04-17 09:00] LABS: Albumin 3.1 g/dL (3.4-5.0); BUN/Creatinine Ratio 5.1; Calcium 8.3 mg/dL (8.5-10.1); Potassium 3.1 mmol/L (3.5-5.1)
[2020-04-17 09:02] LABS: Bilirubin, Total 5.2 mg/dL (0.2-1.0)
[2020-04-17] MEDS ORDERED: SODIUM CHLORIDE 0.9% 1,000 ML IV ONE (10:49)
[2020-04-17] MEDS ORDERED: POTASSIUM EFFERVESENT TAB 25 MEQ PO ONE (11:00)
[2020-04-17 11:35] LABS: Magnesium 1.8 mg/dL (1.6-2.6)
[2020-04-17 12:47] LABS: Amphetamine Screen, Urine POSITIVE (NEGATIVE); Barbiturate Scree,Urine NEGATIVE (NEGATIVE); Benzodiazephine Screen, Urine NEGATIVE (NEGATIVE); Cannabinoid Screen, Urine NEGATIVE (NEGATIVE); Cocaine Screen, Urine NEGATIVE (NEGATIVE); Phencyclidine Screen, Urine NEGATIVE (NEGATIVE)
[2020-04-17 12:54] LABS: Opiate Scree,Urine NEGATIVE (NEGATIVE)
[2020-04-17] MEDS ORDERED: SODIUM CHLORIDE 0.9% 1,000 ML IV SCH (13:26)
[2020-04-17] MEDS ORDERED: ACETAMINOPHEN 500 MG TAB PO PRN (13:30)
[2020-04-17] MEDS ORDERED: HYDROcodone-ACET 5/325MG TAB PO PRN (13:30)
[2020-04-17] MEDS ORDERED: ONDANSETRON HCL 4 MG/2 ML VIAL IV PRN (13:30)
[2020-04-17] MEDS ORDERED: DOCUSATE SOD 100 MG CAP PO PRN (13:30)
[2020-04-17] MEDS ORDERED: MORPHINE SULF INJ 2 MG/ML SYRINGE 1ML IV PRN ×2 (13:30)
[2020-04-17] MEDS ORDERED: NITROGLYCERIN 0.4 MG SL TAB SL PRN (13:30)
[2020-04-17] MEDS ORDERED: FUROSEMIDE 40 MG/4 ML VIAL IV ONE ×2 (13:30→15:15)
[2020-04-17] MEDS ORDERED: ATENOLOL 25 MG TAB PO ONE (14:00)
[2020-04-17] MEDS ORDERED: METOPROLOL TARTRATE 1MG/1ML-5ML VIAL IV PRN (14:00)
[2020-04-17 15:00] LABS: Basophils # (auto) 0.1 10 ^3/uL (0-0.2); Eosinophils # (auto) 0 10 ^3/uL (0-0.8); Eosinophils % (auto) 0.7 % (0.0-7.0); Hematocrit 40.1 % (41.0-53.0); Hemoglobin 12.9 g/dL (13.5-17.5); Lymphocytes # (auto) 1.1 10 ^3/uL (0.4-5.4); Lymphocytes % (auto) 21.5 % (10.0-50.0); Mean Corpuscular Hemoglobin 30.5 pg (28.0-32.0); Mean Corpuscular Hgb Conc. 32.3 g/dL (32.0-36.0); Mean Corpuscular Volume 94.4 fL (80.0-100.0); Monocytes # (auto) 0.3 10 ^3/uL (0-1.3); Monocytes % (auto) 6.2 % (0.0-12.0); Neutrophils # (auto) 3.6 10 ^3/uL (1.6-8.6); Neutrophils % (auto) 70.6 % (37.0-80.0); Nucleated Red Blood Cells % 0.2 %; Platelet Count (auto) 201 10^3/uL (140-450); Red Blood Cells 4.25 10^6/uL (4.5-5.90); Red Cell Distribution Width 19.2 % (11.8-14.3); White Blood Cell 5.1 10^3/uL (4.4-10.8)
[2020-04-17 15:10] LABS: Calcium 8.4 mg/dL (8.5-10.1); Potassium 3.3 mmol/L (3.5-5.1)
[2020-04-17 15:14] LABS: Cholesterol 56 mg/dL (< 200)
[2020-04-17] MEDS ORDERED: POTASSIUM CHL 20MEQ/100ML 100 ML IV ONE (15:15)
[2020-04-17] MEDS ORDERED: THIAMINE 100mg/ml INJ (200mg/2ml VIAL) IV ONE (15:15)
[2020-04-17] MEDS ORDERED: FOLIC ACID 1 MG TAB PO ONE (15:15)
[2020-04-17] MEDS ORDERED: MULTIPLE VITAMIN TAB PO ONE (15:15)
[2020-04-17] MEDS ORDERED: THIAMINE HCL 100 MG TAB PO ONE (15:15)
[2020-04-17] MEDS ORDERED: NICOTINE 14 MG/24HR TOPICAL PATCH TD ONE (15:15)
[2020-04-17 15:16] LABS: Albumin 2.9 g/dL (3.4-5.0); BUN/Creatinine Ratio 5.9; Bilirubin, Total 5.4 mg/dL (0.2-1.0); CRP High Sensitivity 0.2 mg/dL (< 0.3); Total Protein 6.7 g/dL (6.4-8.2)
[2020-04-17 15:18] LABS: HDL Cholesterol 19 mg/dL (40-59); LDL Cholesterol 43 mg/dL (< 100); Triglycerides 70 mg/dL (< 150)
--- NOTE | 2020-04-17 17:00 | NUR ---
Telemetry admit from [facility] admitted to Telemetry unit after SBAR received. Patient oriented to CHIDI LEBRON, RN primary RN, unit, room, bed, and unit policies regarding patient care and visiting hours. Patient now on continuous telemetry monitoring, tele box # 3 and telemetry reading on arrival to unit is ST. Patient placed on bedside oxygen, weighed by bedscale and encouraged to call if they need something. All questions and concerns addressed, patient verbalized understanding.
[2020-04-17 19:04] VITALS: BP 161/117
[2020-04-17 20:20] LABS: Lactic Acid w/Reflex 2.4 mmol/L (0.4-2.0)
[2020-04-17] MEDS: ATORVASTATIN 20 MG TAB PO SCH (21:39)
[2020-04-17] MEDS: DOXYCYCLINE 100MG/250ML 250 ML IV SCH (21:39)
[2020-04-17] MEDS: METOPROLOL TARTRATE 25 MG TAB PO SCH (21:39)
[2020-04-17 22:00] VITALS: BP 109/83
[2020-04-17] MEDS: BUDESONIDE (INHALATION) 180 MCG IH IN SCH (22:00)
[2020-04-17] MEDS: ALBUTEROL SULF HFA 90MCG INH 200DOSE IN SCH (22:00)
--- NOTE | 2020-04-17 22:40 | NUR ---
ASSUMED CARE OF PATIENT FROM ELHAM MENENDEZ
[2020-04-17] MEDS: FUROSEMIDE 20 MG/2 ML VIAL IV SCH (23:51)
[2020-04-17] MEDS: LORazepam 0.5 MG TAB PO PRN (23:52)
[2020-04-18 05:00] VITALS: BP 113/75
[2020-04-18] MEDS: FUROSEMIDE 20 MG/2 ML VIAL IV SCH (05:19)
[2020-04-18 07:08] LABS: Basophils # (auto) 0 10 ^3/uL (0-0.2); Basophils % (auto) 0.7 % (0.0-2.0); Eosinophils # (auto) 0 10 ^3/uL (0-0.8); Eosinophils % (auto) 0.8 % (0.0-7.0); Hematocrit 39.7 % (41.0-53.0); Hemoglobin 12.9 g/dL (13.5-17.5); Lymphocytes # (auto) 1.2 10 ^3/uL (0.4-5.4); Lymphocytes % (auto) 23.9 % (10.0-50.0); Mean Corpuscular Hemoglobin 30.9 pg (28.0-32.0); Mean Corpuscular Hgb Conc. 32.5 g/dL (32.0-36.0); Mean Corpuscular Volume 95.1 fL (80.0-100.0); Monocytes # (auto) 0.2 10 ^3/uL (0-1.3); Monocytes % (auto) 4.9 % (0.0-12.0); Neutrophils # (auto) 3.5 10 ^3/uL (1.6-8.6); Neutrophils % (auto) 69.7 % (37.0-80.0); Nucleated Red Blood Cells % 0.2 %; Platelet Count (auto) 179 10^3/uL (140-450); Red Blood Cells 4.17 10^6/uL (4.5-5.90); Red Cell Distribution Width 19.3 % (11.8-14.3)
--- NOTE | 2020-04-18 07:15 | NUR ---
opening shift note Assumed care patient in bed AOx4. No complaints of pain and no s/s of distress or SOB noted at this time. Patient updated on POC and to call for assistance as needed. Bed in low position, locked, call light within reach. Will continue care.
[2020-04-18] MEDS: ALBUTEROL SULF HFA 90MCG INH 200DOSE IN SCH ×2 (07:25→21:31)
--- NOTE | 2020-04-18 07:25 | NUR ---
RT NOTE: MDI THERAPY HELD DUE TO PENDING TEST RESULTS, HR 113, SPO2 100% ON 2L NC, BREATH SOUNDS CLEAR, NO S/S OF SOB OR INCREASED WORK OF BREATHING. WILL CONTINUE TO MONITOR PT.
--- NOTE | 2020-04-18 07:38 | NUR ---
CLOSING SHIFT NOTE ENDORSED CARE TO DAY SHIFT RN
[2020-04-18 07:45] LABS: Albumin 2.8 g/dL (3.4-5.0); BUN/Creatinine Ratio 8.5; Bilirubin, Total 4.8 mg/dL (0.2-1.0); Total Protein 6.5 g/dL (6.4-8.2)
[2020-04-18 09:00] VITALS: BP 116/83
[2020-04-18] MEDS: ENOXAPARIN SOD 40 MG/0.4 ML SYRINGE SC SCH (10:00)
--- NOTE | 2020-04-18 10:15 | NUR ---
SPOKE WITH PATIENT'S DAUGHTER Daughter updated on patient's condition and POC after password verified. All questions and concerns addressed at this time. Addendum: 04/18/20 at 1931 by JONNY BARAJAS RN RN wrong patient
[2020-04-18] MEDS: DexAMETHasone SOD PHOS 10MG/1ML VIAL INJ IV SCH (10:40)
[2020-04-18] MEDS: DOXYCYCLINE 100MG/250ML 250 ML IV SCH ×2 (10:40→22:02)
[2020-04-18] MEDS: ASCORBIC ACID 1,000 MG TAB PO SCH (10:41)
[2020-04-18] MEDS: ZINC SULFATE 220mg CAP or TAB PO SCH (10:41)
[2020-04-18] MEDS: NICOTINE 14 MG/24HR TOPICAL PATCH TD SCH (10:41)
[2020-04-18] MEDS: THIAMINE HCL 100 MG TAB PO SCH (10:41)
[2020-04-18] MEDS: POTASSIUM CHL 20 Meq TABLET PO SCH (10:42)
[2020-04-18] MEDS: ASPirin 81 mg TAB PO SCH (10:42)
[2020-04-18] MEDS: CHOLECALCIFEROL (VITD3) 2,000 UNIT CAP PO SCH (10:42)
[2020-04-18] MEDS: MULTIPLE VITAMIN TAB PO SCH (10:42)
[2020-04-18] MEDS: FOLIC ACID 1 MG TAB PO SCH (10:42)
[2020-04-18] MEDS: PANTOPRAZOLE 40 MG TAB PO SCH (10:43)
[2020-04-18] MEDS: LISINOPRIL 5 MG TAB PO SCH (10:43)
[2020-04-18] MEDS: METOPROLOL TARTRATE 25 MG TAB PO SCH ×2 (10:44→22:02)
[2020-04-18] MEDS ORDERED: POTASSIUM CHL 20 Meq TABLET PO ONE ×2 (11:00→15:00)
[2020-04-18 11:56] LABS: Albumin 2.7 g/dL (3.4-5.0); BUN/Creatinine Ratio 9.4; Calcium 8.1 mg/dL (8.5-10.1); Potassium 3.1 mmol/L (3.5-5.1)
[2020-04-18 11:59] LABS: Bilirubin, Total 4.4 mg/dL (0.2-1.0); Total Protein 6.3 g/dL (6.4-8.2)
[2020-04-18 12:01] LABS: INR 1.52 (0.9-1.15); Partial Thromboplastin Time 31.7 sec (23.0-31.2)
--- NOTE | 2020-04-18 12:10 | NUR ---
Anxiety Patient states he feels very anxious and is having withdrawal anxiety. Will medicate at this casper with Lorazepam IV per MD orders and continue to monitor.
[2020-04-18] MEDS: FUROSEMIDE 40 MG/4 ML VIAL IV SCH ×3 (12:13→18:00)
[2020-04-18] MEDS: LORazepam 2MG/ML-1ML VIAL IV PRN (12:14)
[2020-04-18 13:00] VITALS: BP 106/77
--- NOTE | 2020-04-18 14:23 | NUR ---
Nutrition Assessment Notes Please refer to link for full assessment notes. Est Energy needs: 4367-3747 kcals (23-25 kcal/kgBW) Est Protein needs: 63-79 gms/day (0.8-1.0 gm/kgBW) Will continue to monitor and reassess prn. Addendum: 04/18/20 at [address] Amended: Links added.
[2020-04-18 17:00] VITALS: BP 105/76
--- NOTE | 2020-04-18 17:30 | NUR ---
US rescheduled US rescheduled for 04/19/20 as patient did not maintain NPO status and had a "snack" he had been saving from breakfast. Patient informed to remain NPO after midnight for US to be performed in the morning.
[2020-04-18] MEDS: BUDESONIDE (INHALATION) 180 MCG IH IN SCH (21:31)
--- NOTE | 2020-04-18 21:31 | NUR ---
Respiratory note: PLACED PT ON 2L NC AT THIS TIME
--- NOTE | 2020-04-18 21:31 | NUR ---
Respiratory note: MDI HELD AT THIS TIME AWAITING COVID RESULTS
[2020-04-18 22:00] VITALS: BP 98/75
[2020-04-18] MEDS: ATORVASTATIN 20 MG TAB PO SCH (22:02)
--- NOTE | 2020-04-19 02:00 | NUR ---
IV removal IV DC'd with clean sterile technique, catheter fully intact. Pressure dressing applied to site. Patient tolerated well. IV insertion IV access obtained, via clean sterile technique by inserting 20 gauge catheter at LEFT FA after 1 attempt(s). IV secured properly. No trauma to site. Patient tolerated well. NOTE: []
[2020-04-19 05:00] VITALS: BP 99/77
[2020-04-19] MEDS: FUROSEMIDE 40 MG/4 ML VIAL IV SCH (05:45)
[2020-04-19] MEDS: ALBUTEROL SULF HFA 90MCG INH 200DOSE IN SCH ×3 (06:00→22:00)
[2020-04-19] MEDS: BUDESONIDE (INHALATION) 180 MCG IH IN SCH ×3 (06:29→22:00)
--- NOTE | 2020-04-19 06:29 | NUR ---
Respiratory note: MEDICATION HELD UNTIL COVID RESULTS ARE IN. HR 107, RR 19, POX 98% ON 2L NC, BS ARE CLEAR. NO SOB OR DISTRESS NOTED. `
[2020-04-19 07:19] LABS: Basophils # (auto) 0 10 ^3/uL (0-0.2); Basophils % (auto) 0.3 % (0.0-2.0); Eosinophils # (auto) 0 10 ^3/uL (0-0.8); Hematocrit 41.6 % (41.0-53.0); Hemoglobin 13.5 g/dL (13.5-17.5); Lymphocytes # (auto) 0.8 10 ^3/uL (0.4-5.4); Lymphocytes % (auto) 12.8 % (10.0-50.0); Mean Corpuscular Hemoglobin 30.9 pg (28.0-32.0); Mean Corpuscular Hgb Conc. 32.5 g/dL (32.0-36.0); Monocytes # (auto) 0.1 10 ^3/uL (0-1.3); Monocytes % (auto) 2.5 % (0.0-12.0); Neutrophils % (auto) 84.4 % (37.0-80.0); Nucleated Red Blood Cells % 0.3 %; Platelet Count (auto) 221 10^3/uL (140-450); Red Blood Cells 4.38 10^6/uL (4.5-5.90); Red Cell Distribution Width 19.4 % (11.8-14.3); White Blood Cell 5.9 10^3/uL (4.4-10.8)
[2020-04-19 07:33] LABS: Calcium 8.4 mg/dL (8.5-10.1); Potassium 3.9 mmol/L (3.5-5.1)
[2020-04-19 07:37] LABS: BUN/Creatinine Ratio 11.6; Total Protein 7.3 g/dL (6.4-8.2)
--- NOTE | 2020-04-19 08:30 | NUR ---
Patient kept NPO at this time for liver US he verbalized understanding
[2020-04-19 09:00] VITALS: BP 103/78
[2020-04-19] MEDS: DOXYCYCLINE 100MG/250ML 250 ML IV SCH ×2 (10:38→21:55)
[2020-04-19] MEDS: DexAMETHasone SOD PHOS 10MG/1ML VIAL INJ IV SCH (10:38)
[2020-04-19] MEDS: ASPirin 81 mg TAB PO SCH (10:39)
[2020-04-19] MEDS: PANTOPRAZOLE 40 MG TAB PO SCH (10:39)
[2020-04-19] MEDS: ZINC SULFATE 220mg CAP or TAB PO SCH (10:39)
[2020-04-19] MEDS: FOLIC ACID 1 MG TAB PO SCH (10:39)
[2020-04-19] MEDS: MULTIPLE VITAMIN TAB PO SCH (10:39)
[2020-04-19] MEDS: CHOLECALCIFEROL (VITD3) 2,000 UNIT CAP PO SCH (10:39)
[2020-04-19] MEDS: THIAMINE HCL 100 MG TAB PO SCH (10:40)
[2020-04-19] MEDS: ASCORBIC ACID 1,000 MG TAB PO SCH (10:41)
[2020-04-19] MEDS: METOPROLOL TARTRATE 25 MG TAB PO SCH ×2 (10:41→22:14)
[2020-04-19] MEDS: POTASSIUM CHL 20 Meq TABLET PO SCH (10:41)
[2020-04-19] MEDS: LISINOPRIL 5 MG TAB PO SCH (10:42)
[2020-04-19] MEDS: ENOXAPARIN SOD 40 MG/0.4 ML SYRINGE SC SCH (10:42)
[2020-04-19] MEDS: NICOTINE 14 MG/24HR TOPICAL PATCH TD SCH (10:42)
--- NOTE | 2020-04-19 11:21 | NUR ---
at bedside MD Forbes at bedside, aware of patient's status including abnormal labs. Awaiting new orders. Cont care
[2020-04-19 13:00] VITALS: BP 110/79
[2020-04-19 17:00] VITALS: BP 91/80
[2020-04-19] MEDS: BUMETANIDE 2.5mg/10ml (0.25 mg/ml) INJ IV SCH (18:00)
--- NOTE | 2020-04-19 19:07 | NUR ---
Patient care endorsed endorsed care to Lexis rn. Patient sitting up in bed no acute distress or sob noted. Call light within reach.
--- NOTE | 2020-04-19 20:00 | NUR ---
Opening Shift Note Assumed care of patient, awake and alert x4. Patient denies pain or shortness of breath at this time. No sign/symptoms of distress noted or verbalized at this time. Instructed on plan of care and encouraged patient to call for assistance as needed, patient verbalized understanding. Bed is locked in lowest position, side rails x 2 are up, and call light is within reach.
[2020-04-19] MEDS: ATORVASTATIN 20 MG TAB PO SCH (21:55)
--- NOTE | 2020-04-19 21:58 | NUR ---
Respiratory note: MEDICATION HELD AT THIS TIME UNTIL COVID RESULTS RETURN. PT CURRENTLY ON NC2L SPO2 97%, HR 96, RR 20. BS CLEAR. NO SOB OR DISTRESS NOTED.
[2020-04-19 22:00] VITALS: BP 94/69
[2020-04-20 05:00] VITALS: BP 98/69
[2020-04-20] MEDS: BUMETANIDE 2.5mg/10ml (0.25 mg/ml) INJ IV SCH ×2 (05:42→17:47)
[2020-04-20 06:53] LABS: BUN/Creatinine Ratio 21.3; Potassium 5.1 mmol/L (3.5-5.1)
[2020-04-20 06:55] LABS: Bilirubin, Total 3.7 mg/dL (0.2-1.0); Total Protein 7.1 g/dL (6.4-8.2)
--- NOTE | 2020-04-20 07:10 | NUR ---
Opening Shift Note Assumed care of patient, awake and alert. No S/S of distress/SOB pt denies pain. Instructed on POC and to call for assist PRN, will continue to monitor for changes Q1hr and PRN.
[2020-04-20 09:00] VITALS: BP 92/63
[2020-04-20] MEDS: ALBUTEROL SULF HFA 90MCG INH 200DOSE IN SCH (09:10)
--- NOTE | 2020-04-20 09:10 | NUR ---
STAR HELD PENDING PT'S SANCHEZ VIRUS TEST. NO RESP. DISTRESS OR SOB NOTED AT THIS TIME. BS. ARE CLEAR AND DIMINISHED, XB=807,RR=20,BS96=938 ON 2LPM NC. Addendum: 04/20/20 at 0912 by Mary Villalobos RT Amended: Links added.
[2020-04-20] MEDS: POTASSIUM CHL 20 Meq TABLET PO SCH (10:00)
[2020-04-20] MEDS: DOXYCYCLINE 100MG/250ML 250 ML IV SCH (10:00)
[2020-04-20] MEDS: METOPROLOL TARTRATE 25 MG TAB PO SCH ×2 (10:00→21:50)
[2020-04-20] MEDS: LISINOPRIL 5 MG TAB PO SCH (10:00)
[2020-04-20] MEDS: PANTOPRAZOLE 40 MG TAB PO SCH (10:01)
[2020-04-20] MEDS: THIAMINE HCL 100 MG TAB PO SCH (10:01)
[2020-04-20] MEDS: ZINC SULFATE 220mg CAP or TAB PO SCH (10:02)
[2020-04-20] MEDS: FOLIC ACID 1 MG TAB PO SCH (10:02)
[2020-04-20] MEDS: ASPirin 81 mg TAB PO SCH (10:02)
[2020-04-20] MEDS: MULTIPLE VITAMIN TAB PO SCH (10:02)
--- NOTE | 2020-04-20 10:02 | NUR ---
Meds held Doxy non admin as is "covid protocol" and patient is negative at this time. Metoprolol and Lisinopril held d/t decrease BP and elevated BUN /creat. Klor con held d/t K+ 5.1 at this time. Informed receiving rn Pura. Patient will be transported to room 223. Patient denies any dizziness/lightheaded, instructed to inform primary rn is s/s of hypotension noted he verbalized understanding.
[2020-04-20] MEDS: ENOXAPARIN SOD 40 MG/0.4 ML SYRINGE SC SCH (10:03)
[2020-04-20] MEDS: CHOLECALCIFEROL (VITD3) 2,000 UNIT CAP PO SCH (10:03)
[2020-04-20] MEDS: ASCORBIC ACID 1,000 MG TAB PO SCH (10:03)
[2020-04-20] MEDS: NICOTINE 14 MG/24HR TOPICAL PATCH TD SCH (10:04)
--- NOTE | 2020-04-20 10:22 | NUR ---
Report given to Pura MENENDEZ. Patient transported to room 223A as per manager house Valery and charger operator Emily pt is Covid negative, no result released on [employer] at this time. Pt transferred with all personal belongings. No acute distress or sob noted. IV to left FA patent and tele #[address] sinus tach HR 103.
--- NOTE | 2020-04-20 10:23 | NUR ---
REPORT RECEIVED REPORT FROM GEMMA SLOAN
[2020-04-20] MEDS: LORazepam 0.5 MG TAB PO PRN (10:46)
[2020-04-20 12:40] VITALS: BP 100/62
[2020-04-20 16:54] VITALS: BP 108/60
--- NOTE | 2020-04-20 19:59 | NUR ---
1899. REPORT OBTAINED ON PATIENT FROM SHEILA MENENDEZ. 1919. PATIENT MET SITTING ON HIS BED. DENIED PAIN. WAS SINUS TACHYCARDIA ON THE MONITOR. HR 109 BILATERAL PEDAL EDEMA NOTED. LUNGS WERE CLEAR.
[2020-04-20] MEDS: ATORVASTATIN 20 MG TAB PO SCH (21:49)
[2020-04-20 22:00] VITALS: BP 100/75
[2020-04-21 05:00] VITALS: BP 107/72
[2020-04-21 05:23] LABS: Albumin 3.1 g/dL (3.4-5.0); BUN/Creatinine Ratio 24.3; Calcium 8.7 mg/dL (8.5-10.1)
[2020-04-21 05:26] LABS: Bilirubin, Total 3.7 mg/dL (0.2-1.0); Total Protein 7.3 g/dL (6.4-8.2)
[2020-04-21] MEDS: BUMETANIDE 2.5mg/10ml (0.25 mg/ml) INJ IV SCH (05:33)
--- NOTE | 2020-04-21 05:58 | NUR ---
PATIENT SLEPT MOST OF THEE NIGHT.
--- NOTE | 2020-04-21 08:15 | NUR ---
Opening Shift Note Assumed care of patient, awake, alert, and oriented. No S/S of distress/SOB or pain. Bed in lowest/locked position, bed rails up x2, call light within reach. Instructed on POC and to call for assist PRN. Will continue to monitor for changes Q1hr and PRN.
[2020-04-21 09:22] VITALS: BP 118/86
[2020-04-21] MEDS: NICOTINE 14 MG/24HR TOPICAL PATCH TD SCH (09:38)
[2020-04-21] MEDS: POTASSIUM CHL 20 Meq TABLET PO SCH (09:38)
[2020-04-21] MEDS: PANTOPRAZOLE 40 MG TAB PO SCH (09:39)
[2020-04-21] MEDS: METOPROLOL TARTRATE 25 MG TAB PO SCH ×2 (09:39→21:29)
[2020-04-21] MEDS: MULTIPLE VITAMIN TAB PO SCH (09:39)
[2020-04-21] MEDS: ASPirin 81 mg TAB PO SCH (09:39)
[2020-04-21] MEDS: FOLIC ACID 1 MG TAB PO SCH (09:40)
[2020-04-21] MEDS: THIAMINE HCL 100 MG TAB PO SCH (09:40)
--- NOTE | 2020-04-21 09:48 | NUR ---
MD ROUNDS DR OLIVEROS AT BEDSIDE DISCUSSING POC WITH PATIENT. NEW ORDERS RECEIVED/WILL CARRY OUT. WILL CONTINUE TO MONITOR
[2020-04-21] MEDS ORDERED: SODIUM CHL 3% 500 ML IV ONE (10:30)
--- NOTE | 2020-04-21 12:22 | NUR ---
Nutrition Followup Note Wt 79.3kg Pt was alert and oriented at time of rounds. Pt reports appetite is not great. Pt reports some GI issues. Pt with a fair appetite aeb pt with 69% po intake of recorded meals per RN note Est Energy needs: 4360-5895 kcals (23-25 kcal/kgBW) Est Protein needs: 48-63 gms/day (0.6-0.8 gm/kgBW, pt with elevated RFTs) Will continue to monitor and reassess prn. Labs: BUN 42H, Creat 1.73H, Na 124L, Alb 3.1L, T bili 3.7H BM: pt with 1 BM 04/21 per RN note Skin: Bs 21 low risk full details in home health care social worker note PES: Altered nutrition related lab values r/t current/chronic medical condition aeb elev LFTs, elev Bili, hyperglycemia, hypoalbuminemia Comments: Will continue to monitor PO status, skin status, pertinent labs and weight trends. Will f/u in 3-5 days. 1) Continue to closely monitor pt PO intake to meet at least 75% of meals 2) Continue current plan of care Expected Outcomes/Goals: Pt appetite to remain >75% PO intake Pt labs to improve
--- NOTE | 2020-04-21 12:46 | NUR ---
MD ROUNDS DR KIRK AT BEDSIDE WITH PATIENT
[2020-04-21 12:54] VITALS: BP 106/78
[2020-04-21] MEDS ORDERED: ALBUMIN 25% 100 ML IV ONE (13:00)
[2020-04-21] MEDS: MIDODRINE HCL 10 MG TAB PO SCH ×2 (13:32→17:50)
[2020-04-21] MEDS: FUROSEMIDE 20 MG/2 ML VIAL IV SCH ×2 (13:33→17:50)
[2020-04-21 17:00] VITALS: BP 99/73
[2020-04-21] MEDS: SPIRONOLACTONE 25 MG TAB PO SCH (17:48)
[2020-04-21] MEDS: ATORVASTATIN 20 MG TAB PO SCH (21:28)
[2020-04-21 22:44] VITALS: BP 105/69
[2020-04-22 05:24] VITALS: BP 103/68
[2020-04-22] MEDS: MIDODRINE HCL 10 MG TAB PO SCH ×3 (06:02→17:36)
[2020-04-22] MEDS: FUROSEMIDE 20 MG/2 ML VIAL IV SCH ×2 (06:03→17:37)
[2020-04-22] MEDS: SPIRONOLACTONE 25 MG TAB PO SCH ×2 (06:03→17:37)
[2020-04-22 06:17] LABS: Albumin 3.3 g/dL (3.4-5.0); Calcium 8.4 mg/dL (8.5-10.1); Potassium 3.9 mmol/L (3.5-5.1)
[2020-04-22 06:26] LABS: BUN/Creatinine Ratio 28.1; Bilirubin, Total 4.2 mg/dL (0.2-1.0); Total Protein 7.2 g/dL (6.4-8.2)
[2020-04-22 08:34] VITALS: BP 104/73
[2020-04-22] MEDS: NICOTINE 14 MG/24HR TOPICAL PATCH TD SCH (10:00)
[2020-04-22] MEDS ORDERED: FUROSEMIDE 40 MG/4 ML VIAL IV SCH (10:00)
[2020-04-22] MEDS: ASPirin 81 mg TAB PO SCH (10:38)
[2020-04-22] MEDS: FOLIC ACID 1 MG TAB PO SCH (10:38)
[2020-04-22] MEDS: MULTIPLE VITAMIN TAB PO SCH (10:39)
[2020-04-22] MEDS: PANTOPRAZOLE 40 MG TAB PO SCH ×2 (10:39→22:27)
[2020-04-22] MEDS: THIAMINE HCL 100 MG TAB PO SCH (10:39)
[2020-04-22] MEDS: POTASSIUM CHL 20 Meq TABLET PO SCH (10:39)
[2020-04-22] MEDS: METOPROLOL TARTRATE 25 MG TAB PO SCH ×2 (10:40→22:27)
--- NOTE | 2020-04-22 11:40 | NUR ---
REPORT RECEIVED REPORT FROM GEMMA THIBODEAUX
--- NOTE | 2020-04-22 12:30 | NUR ---
MD ROUNDS DR HADLEY AT BEDSIDE DISCUSSING POC WITH PATIENT. NEW ORDERS RECEIVED/WILL CARRY OUT. WILL CONTINUE TO MONITOR
--- NOTE | 2020-04-22 12:31 | NUR ---
LAB URINE SAMPLE SENT TO LAB PER MD ORDERS
[2020-04-22 13:00] VITALS: BP 100/75
[2020-04-22 13:55] LABS: Protein, Urine 8.8 mg/dL (0.0-11.9)
[2020-04-22] MEDS: OCTREOTIDE ACETATE 100 MCG/ML VL SUBCUT SCH ×2 (14:15→22:28)
[2020-04-22 16:11] VITALS: BP 92/70
[2020-04-22] MEDS: SUCRALFATE 1 GM/10 ML ORAL SUSP PO SCH ×2 (17:36→22:26)
--- NOTE | 2020-04-22 19:25 | NUR ---
Opening shift note Assumed care of patient who is A&Ox4, respirations even and non-labored with no s/s of distress at this time. Discussed POC with patient and his current fluid restriction, the patient verbalized understanding. Advised patient to call for assistance. Bed in lowest locked position with 2 side rails up, call light within reach. Will continue to monitor.
[2020-04-22 22:00] VITALS: BP 101/69
[2020-04-22] MEDS: LORazepam 2MG/ML-1ML VIAL IV PRN (22:28)
--- NOTE | 2020-04-23 01:56 | NUR ---
Patient with excessive non-productive coughing Patient stops coughing and appears calm after I enter the room, states that he needs alcohol to make the coughing stop. Patient resumes coughing after I leave. Patients lung sounds clear, VS WNL. Patient also stated that a nicotine patch would help as well. Hospitalist paged.
--- NOTE | 2020-04-23 03:15 | NUR ---
Hospitalist returned call Entered orders for Robittusin for patients coughing.
[2020-04-23 05:00] VITALS: BP 106/68
[2020-04-23] MEDS: SPIRONOLACTONE 25 MG TAB PO SCH ×2 (05:56→17:26)
[2020-04-23] MEDS: OCTREOTIDE ACETATE 100 MCG/ML VL SUBCUT SCH ×3 (05:56→22:00)
[2020-04-23] MEDS: MIDODRINE HCL 10 MG TAB PO SCH ×3 (05:56→17:26)
[2020-04-23] MEDS: SUCRALFATE 1 GM/10 ML ORAL SUSP PO SCH ×4 (05:56→22:00)
[2020-04-23] MEDS: FUROSEMIDE 20 MG/2 ML VIAL IV SCH ×2 (05:57→17:27)
--- NOTE | 2020-04-23 06:55 | NUR ---
Rounding Patient sleeping, respirations even and non-labored with no s/s of distress at this time.
[2020-04-23 06:57] LABS: Albumin 3.1 g/dL (3.4-5.0); Calcium 7.9 mg/dL (8.5-10.1); Potassium 3.8 mmol/L (3.5-5.1)
[2020-04-23 07:01] LABS: BUN/Creatinine Ratio 35.8; Bilirubin, Total 3.7 mg/dL (0.2-1.0); Total Protein 6.5 g/dL (6.4-8.2)
[2020-04-23] MEDS: NICOTINE 14 MG/24HR TOPICAL PATCH TD SCH (08:50)
[2020-04-23] MEDS: FOLIC ACID 1 MG TAB PO SCH (08:51)
[2020-04-23] MEDS: THIAMINE HCL 100 MG TAB PO SCH (08:51)
[2020-04-23] MEDS: ASPirin 81 mg TAB PO SCH (08:51)
[2020-04-23] MEDS: MULTIPLE VITAMIN TAB PO SCH (08:51)
[2020-04-23] MEDS: POTASSIUM CHL 20 Meq TABLET PO SCH (08:52)
[2020-04-23] MEDS: PANTOPRAZOLE 40 MG TAB PO SCH ×2 (08:52→22:00)
[2020-04-23] MEDS: METOPROLOL TARTRATE 25 MG TAB PO SCH ×2 (08:53→22:00)
[2020-04-23 09:00] VITALS: BP 106/76
[2020-04-23 13:00] VITALS: BP 105/64
[2020-04-23 16:50] VITALS: BP 97/74
[2020-04-23 22:27] VITALS: BP 106/78
--- NOTE | 2020-04-23 23:00 | NUR ---
IV removal - IV pulled detention out of vein IV DC'd with sterile technique, catheter fully intact. Pressure dressing applied to site. Patient tolerated procedure well.
--- NOTE | 2020-04-23 23:10 | NUR ---
IV insertion IV access obtained, via clean sterile technique by inserting 20 gauge catheter at right dorsal forearm after 1 attempt. IV secured properly. No trauma to site. Patient tolerated procedure well.
--- NOTE | 2020-04-24 00:34 | NUR ---
Patient complains of nausea Patient leaning over side table complaining of nausea. Patient requested anti nausea medication. Gave anti-nausea medication as prescribed. Will continue to monitor.
[2020-04-24 05:17] VITALS: BP 105/70
[2020-04-24] MEDS: SPIRONOLACTONE 25 MG TAB PO SCH ×2 (05:44→17:32)
[2020-04-24] MEDS: MIDODRINE HCL 10 MG TAB PO SCH ×3 (06:08→17:33)
[2020-04-24] MEDS: FUROSEMIDE 20 MG/2 ML VIAL IV SCH ×2 (06:08→17:32)
[2020-04-24] MEDS: OCTREOTIDE ACETATE 100 MCG/ML VL SUBCUT SCH ×4 (06:12→22:06)
[2020-04-24] MEDS: SUCRALFATE 1 GM/10 ML ORAL SUSP PO SCH ×4 (06:27→22:02)
[2020-04-24 06:43] LABS: Albumin 3.1 g/dL (3.4-5.0); BUN/Creatinine Ratio 27.4; Calcium 8.1 mg/dL (8.5-10.1)
[2020-04-24 06:46] LABS: Bilirubin, Total 3.7 mg/dL (0.2-1.0); Total Protein 6.9 g/dL (6.4-8.2)
--- NOTE | 2020-04-24 08:00 | NUR ---
Opening Shift Note Assumed care of patient, awake, alert and oriented X4. No S/S of distress/SOB or pain. Tele# , 31 @91 bpm. IV to right forearm, 20 gauge, patent and saline locked. Patient has multiple scabs throughout the body. Instructed on POC and to call for assist PRN, verbalized understanding. Bed locked, in lowest position, call light within reach, will continue to monitor for changes Q1hr and PRN.
[2020-04-24 08:53] VITALS: BP 118/87
[2020-04-24] MEDS: ASPirin 81 mg TAB PO SCH (10:28)
[2020-04-24] MEDS: FOLIC ACID 1 MG TAB PO SCH (10:28)
[2020-04-24] MEDS: THIAMINE HCL 100 MG TAB PO SCH (10:29)
[2020-04-24] MEDS: MULTIPLE VITAMIN TAB PO SCH (10:31)
[2020-04-24] MEDS: METOPROLOL TARTRATE 25 MG TAB PO SCH ×2 (10:31→22:04)
[2020-04-24] MEDS: PANTOPRAZOLE 40 MG TAB PO SCH ×2 (10:32→22:02)
[2020-04-24] MEDS: NICOTINE 14 MG/24HR TOPICAL PATCH TD SCH (10:33)
--- NOTE | 2020-04-24 11:19 | NUR ---
ROUNDS Dr Forbes at bedside for rounds, no new orders received at this time. Patient updated on plan of care, verbalized understanding.
[2020-04-24] MEDS: DEMECLOCYCLINE HCL 150 MG TAB PO SCH ×4 (11:26→23:56)
[2020-04-24 12:44] VITALS: BP 122/84
--- NOTE | 2020-04-24 14:47 | NUR ---
Nutrition Followup Note Wt 81.9 kg Pt was sleeping at time of rounds. Pt`s with hyponatremia getting corrected. pt with no distress noted currently on 2 gm na diet with adequate PO of > 75% x 6 per RN doc Est Energy needs: 5804-9640 kcals (23-25 kcal/kgBW, Est Protein needs: 48-63 gms/day (0.6-0.8 gm/kgBW, pt with elevated RFTs) Will continue to monitor and reassess prn. Labs: BUN 37 H CREAT 1.35 H CA 8.1 L EDIS 3.7 H BM: pt with 1 BM today per RN note Skin: Bs 21 low risk full details in skin care instructor note PES: Altered nutrition related lab values r/t current/chronic medical condition aeb elev LFTs, elev Bili, hyperglycemia, hypoalbuminemia Comments: Will continue to monitor PO status, skin status, pertinent labs and weight trends. Will f/u in 3-5 days. 1) Continue to closely monitor pt PO intake to meet at least 75% of meals 2) Continue current plan of care
[2020-04-24 17:04] VITALS: BP 106/72
--- NOTE | 2020-04-24 19:10 | NUR ---
Care endorsed to GEMMA Alcantar, night nurse.
[2020-04-24 22:00] VITALS: BP 108/68
[2020-04-25 05:00] VITALS: BP 113/84
[2020-04-25] MEDS: SPIRONOLACTONE 25 MG TAB PO SCH ×2 (06:00→17:57)
[2020-04-25] MEDS: MIDODRINE HCL 10 MG TAB PO SCH ×3 (06:03→17:57)
[2020-04-25] MEDS: DEMECLOCYCLINE HCL 150 MG TAB PO SCH ×3 (06:03→17:57)
[2020-04-25] MEDS: FUROSEMIDE 20 MG/2 ML VIAL IV SCH ×2 (06:05→17:57)
[2020-04-25] MEDS: OCTREOTIDE ACETATE 100 MCG/ML VL SUBCUT SCH ×3 (06:06→21:56)
[2020-04-25] MEDS: SUCRALFATE 1 GM/10 ML ORAL SUSP PO SCH ×4 (06:30→21:55)
[2020-04-25 06:38] LABS: Potassium 4.1 mmol/L (3.5-5.1)
[2020-04-25 06:50] LABS: Albumin 2.9 g/dL (3.4-5.0); Calcium 8.2 mg/dL (8.5-10.1); Total Protein 6.4 g/dL (6.4-8.2)
--- NOTE | 2020-04-25 08:00 | NUR ---
Opening Shift Note Assumed care of patient, awake, alert and oriented X4. No S/S of distress/SOB or pain. Tele# 31, sinus rhythm @ 96 bpm. IV to right forearm, 20 gauge, patent and saline locked. Patient has multiple scabs throughout the body. Instructed on POC and to call for assist PRN, verbalized understanding. Bed locked, in lowest position, call light within reach, will continue to monitor for changes Q1hr and PRN.
[2020-04-25 09:00] VITALS: BP 106/77
--- NOTE | 2020-04-25 10:17 | NUR ---
ROUNDS Dr Forbes at bedside for rounds, new orders received and followed through. Patient updated on plan of care, verbalized understanding.
[2020-04-25] MEDS: ASPirin 81 mg TAB PO SCH (10:55)
[2020-04-25] MEDS: THIAMINE HCL 100 MG TAB PO SCH (10:55)
[2020-04-25] MEDS: METOPROLOL TARTRATE 25 MG TAB PO SCH ×2 (10:55→22:00)
[2020-04-25] MEDS: FOLIC ACID 1 MG TAB PO SCH (10:55)
[2020-04-25] MEDS: PANTOPRAZOLE 40 MG TAB PO SCH ×2 (10:56→21:55)
[2020-04-25] MEDS: NICOTINE 14 MG/24HR TOPICAL PATCH TD SCH (10:56)
[2020-04-25] MEDS: MULTIPLE VITAMIN TAB PO SCH (10:56)
[2020-04-25 12:52] VITALS: BP 115/81
[2020-04-25] MEDS: LORazepam 0.5 MG TAB PO PRN ×2 (14:29→22:04)
[2020-04-25 16:33] VITALS: BP 103/76
[2020-04-25] MEDS ORDERED: ALBUMIN 25% 100 ML IV ONE (17:00)
--- NOTE | 2020-04-25 19:15 | NUR ---
Care endorsed to GEMMA Mccollum, night nurse.
[2020-04-25 22:00] VITALS: BP 100/74
[2020-04-26] MEDS: DEMECLOCYCLINE HCL 150 MG TAB PO SCH ×4 (00:31→18:00)
[2020-04-26 05:00] VITALS: BP 110/77
[2020-04-26] MEDS: FUROSEMIDE 20 MG/2 ML VIAL IV SCH ×2 (05:56→18:00)
[2020-04-26] MEDS: MIDODRINE HCL 10 MG TAB PO SCH ×3 (05:57→18:00)
[2020-04-26] MEDS: SPIRONOLACTONE 25 MG TAB PO SCH ×2 (05:57→18:00)
[2020-04-26] MEDS: OCTREOTIDE ACETATE 100 MCG/ML VL SUBCUT SCH ×3 (06:11→21:26)
[2020-04-26] MEDS: SUCRALFATE 1 GM/10 ML ORAL SUSP PO SCH ×4 (06:12→21:24)
--- NOTE | 2020-04-26 07:16 | NUR ---
End of Shift Note Endorsed care to dayshift RN. At this time patient has no s/s of distress or SOB.
[2020-04-26 07:43] LABS: Albumin 3.2 g/dL (3.4-5.0); Calcium 8.2 mg/dL (8.5-10.1); Potassium 4.3 mmol/L (3.5-5.1)
[2020-04-26 07:45] LABS: BUN/Creatinine Ratio 27.2
[2020-04-26 07:47] LABS: Bilirubin, Total 4.1 mg/dL (0.2-1.0); Total Protein 6.9 g/dL (6.4-8.2)
--- NOTE | 2020-04-26 08:05 | NUR ---
Opening Shift Note Assumed care of patient, awake, alert and oriented X4. patient pacing in the room. No S/S of distress/SOB or pain. Tele# 31, sinus rhythm @ 78 bpm. IV to right forearm, 20 gauge, patent and saline locked. Patient has multiple scabs throughout the body. Instructed on POC and to call for assist PRN, verbalized understanding. Bed locked, in lowest position, call light within reach, will continue to monitor for changes Q1hr and PRN.
--- NOTE | 2020-04-26 08:15 | NUR ---
noted pt covered with sheet bed as high as it can go, lowered bed and put bed lock on, educated pt he cant have bed high, pt verbalized understanding
[2020-04-26] MEDS: ASPirin 81 mg TAB PO SCH (08:20)
[2020-04-26] MEDS: FOLIC ACID 1 MG TAB PO SCH (08:20)
[2020-04-26] MEDS: THIAMINE HCL 100 MG TAB PO SCH (08:20)
[2020-04-26] MEDS: METOPROLOL TARTRATE 25 MG TAB PO SCH ×2 (08:21→21:24)
[2020-04-26] MEDS: MULTIPLE VITAMIN TAB PO SCH (08:21)
[2020-04-26] MEDS: PANTOPRAZOLE 40 MG TAB PO SCH ×2 (08:21→21:24)
[2020-04-26] MEDS: NICOTINE 14 MG/24HR TOPICAL PATCH TD SCH (08:22)
--- NOTE | 2020-04-26 08:26 | NUR ---
pt arguing with aide regarding fluid restriction, educated pt on purpose of fluid restriction pt demanded his morning medication right now with his milk fro breakfast, medication provided to patient with milk that came with breakfast tray, restated that he has to wait for fluid with lunch tray pt verbalized understanding
[2020-04-26] MEDS: guaiFENesin-DM 100/10mg/5ml SYR PO PRN ×2 (08:36→22:19)
--- NOTE | 2020-04-26 08:38 | NUR ---
gave pt prn cough syrup, noted by covered in sheet bed as high as it can go, lowered bed, educated pt on importance of keeping bed low "its more comfortable high"
[2020-04-26 09:00] VITALS: BP 106/76
[2020-04-26 13:00] VITALS: BP 114/74
--- NOTE | 2020-04-26 16:07 | NUR ---
PT CAUGHT STEALING FOOD OFF OF EMPTY TRAYS IN ANOTHER WING EDUCATED PT
--- NOTE | 2020-04-26 16:12 | NUR ---
assessment Patient is a 35 year old male who is alert and oriented. Patients cognitive abilities are intact. Prior to admission patient lived home with friends and functioned independently. Patient informed me he is able to care for his own ADLs. Per patient he will return home to his prior living arrangements post discharge and family will transport him home. Patient has no need for DME. Patient really does not want to participate in assessment once I asked about him being positive for meth. Patient has refused resources at this time and asked me to come back later. I informed patient he has a right to speak to a social media designer regarding all care. I informed patient he has a right to participate in any and all discharge planning. Patient does not have a POA and advanced directive. I have offered patient information on POA and advanced directives. I informed the patient the advantages and benefits of having an Advanced Directive. Patient verbalized understanding and agreed to discharge plan. Addendum: 04/26/20 at 1614 by Lorena LEONARD Amended: Links added.
[2020-04-26 16:22] VITALS: BP 113/88
[2020-04-26 21:54] VITALS: BP 120/83
[2020-04-27] MEDS: guaiFENesin-DM 100/10mg/5ml SYR PO PRN ×2 (02:49→23:15)
[2020-04-27 04:47] VITALS: BP 117/85
[2020-04-27] MEDS: SPIRONOLACTONE 25 MG TAB PO SCH ×2 (05:05→17:21)
[2020-04-27] MEDS: FUROSEMIDE 20 MG/2 ML VIAL IV SCH (05:22)
[2020-04-27] MEDS: DEMECLOCYCLINE HCL 150 MG TAB PO SCH ×4 (05:23→17:21)
[2020-04-27] MEDS: MIDODRINE HCL 10 MG TAB PO SCH ×3 (05:23→17:21)
[2020-04-27] MEDS: OCTREOTIDE ACETATE 100 MCG/ML VL SUBCUT SCH ×3 (05:25→21:20)
--- NOTE | 2020-04-27 05:40 | NUR ---
Patient off Tele Patient educated on the need to keep nuisance animal damage control agent on at all times. Patient refusing and states he wants to "wash off." Will continue to monitor Q1 and PRN. At this time patient has no s/s of distress or SOB.
[2020-04-27 05:45] LABS: Basophils # (auto) 0 10 ^3/uL (0-0.2); Basophils % (auto) 0.8 % (0.0-2.0); Eosinophils # (auto) 0.1 10 ^3/uL (0-0.8); Eosinophils % (auto) 1.2 % (0.0-7.0); Hematocrit 37.7 % (41.0-53.0); Hemoglobin 12.1 g/dL (13.5-17.5); Lymphocytes # (auto) 1.1 10 ^3/uL (0.4-5.4); Lymphocytes % (auto) 18.7 % (10.0-50.0); Mean Corpuscular Hgb Conc. 32.2 g/dL (32.0-36.0); Mean Corpuscular Volume 96.2 fL (80.0-100.0); Monocytes # (auto) 0.5 10 ^3/uL (0-1.3); Monocytes % (auto) 9.1 % (0.0-12.0); Neutrophils # (auto) 4.1 10 ^3/uL (1.6-8.6); Neutrophils % (auto) 70.2 % (37.0-80.0); Nucleated Red Blood Cells % 0.4 %; Platelet Count (auto) 233 10^3/uL (140-450); Red Blood Cells 3.92 10^6/uL (4.5-5.90); Red Cell Distribution Width 18.9 % (11.8-14.3); White Blood Cell 5.9 10^3/uL (4.4-10.8)
[2020-04-27 06:07] LABS: Albumin 2.8 g/dL (3.4-5.0); Anion Gap 7 (5-15); Blood Urea Nitrogen 24 mg/dL (7-18); Calcium 7.9 mg/dL (8.5-10.1); Carbon Dioxide 27 mmol/L (21-32); Chloride 93 mmol/L (98-107); Glucose 88 mg/dL (74-106); Potassium 3.6 mmol/L (3.5-5.1); Sodium 127 mmol/L (136-145)
[2020-04-27 06:09] LABS: Alanine Aminotransferase 332 U/L (16-61); Aspartate Aminotransferase 307 U/L (15-37); BUN/Creatinine Ratio 23.5; GFR African American 106 mL/min; GFR Non-African American 88 mL/min
[2020-04-27 06:12] LABS: Alkaline Phosphatase 158 U/L (45-117); Bilirubin, Total 2.9 mg/dL (0.2-1.0); Total Protein 6.4 g/dL (6.4-8.2)
[2020-04-27] MEDS: SUCRALFATE 1 GM/10 ML ORAL SUSP PO SCH ×4 (06:39→21:19)
--- NOTE | 2020-04-27 07:10 | NUR ---
End of Shift Note Endorsed care to dayshift RN. At this time patient has no s/s of distress or SOB.
--- NOTE | 2020-04-27 07:36 | NUR ---
Opening Shift Note Assumed care of patient, awake and alert. No S/S of distress/SOB or pain. Instructed on POC and to call for assist PRN, will continue to monitor for changes Q1hr and PRN.
[2020-04-27 09:00] VITALS: BP_SYST 123; BP_SYST 155; BP_DIAS 92; BP_DIAS 97
[2020-04-27] MEDS: THIAMINE HCL 100 MG TAB PO SCH (09:55)
[2020-04-27] MEDS: FOLIC ACID 1 MG TAB PO SCH (09:55)
[2020-04-27] MEDS: ASPirin 81 mg TAB PO SCH (09:55)
[2020-04-27] MEDS: MULTIPLE VITAMIN TAB PO SCH (09:55)
[2020-04-27] MEDS: METOPROLOL TARTRATE 25 MG TAB PO SCH ×2 (09:55→22:00)
[2020-04-27] MEDS: PANTOPRAZOLE 40 MG TAB PO SCH ×2 (09:56→21:20)
[2020-04-27] MEDS: NICOTINE 14 MG/24HR TOPICAL PATCH TD SCH (09:56)
[2020-04-27 12:37] VITALS: BP 114/83
--- NOTE | 2020-04-27 16:25 | NUR ---
Nutrition Followup Note Wt 82.5 kg Pt is being ruled out for COVID. Pt is with a CCHO 60g/2gmNa diet, appetite is good aeb ave 81% PO intake over 4 meals per RN doc. Pt with no distress per RN doc. Est Energy needs: 0116-1645 kcals (23-25 kcal/kgBW, Est Protein needs: 48-63 gms/day (0.6-0.8 gm/kgBW, pt with elevated RFTs) Will continue to monitor and reassess prn. Labs: CA 7.9 L EDIS 2.9 H, AST 307 H, ALT 332 H, Alk Phos 158 H, Alb 2.8 L BM: Pt's last BM on 04/21 per RN note Skin: BS 20 low risk full details in home care chaplain note PES: Altered nutrition related lab values r/t current/chronic medical condition aeb elev LFTs, elev Bili, hyperglycemia, hypoalbuminemia Comments: Will continue to monitor PO status, skin status, pertinent labs and weight trends. Will f/u in 3-5 days. 1) Continue to closely monitor pt PO intake to meet at least 75% of meals 2) Continue current plan of care
[2020-04-27 17:00] VITALS: BP_SYST 113; BP_SYST 131; BP_DIAS 81; BP_DIAS 92
[2020-04-27] MEDS: LORazepam 2MG/ML-1ML VIAL IV PRN (21:20)
[2020-04-27 22:43] VITALS: BP 116/81
--- NOTE | 2020-04-27 22:45 | NUR ---
IV REFUSAL The patient is refusing placement of a new IV. Patient states that he is tired of being poked and does not want a new IV placed. He also states that he does not need a IV because he will be leaving in the morning. Educated the patient on the importance of having an IV in placed. Patient verbalized understanding but still refusing IV.
--- NOTE | 2020-04-27 22:45 | NUR ---
IV removal Patient's IV began to leak. IV DC'd with clean sterile technique, catheter fully intact. Pressure dressing applied to site. Patient tolerated well.
--- NOTE | 2020-04-27 23:15 | NUR ---
PATIENT FOUND TRYING TO TAKE WATER FROM BLUE CONTAINER. PATIENT EDUCATED ON HIS FLUID RESTRICTION.
--- NOTE | 2020-04-28 00:10 | NUR ---
HOSPITALIST PAGED Patient is requesting a sleeping pill to help him sleep. Dr. Be has been paged. New order for Restoril has been placed.
[2020-04-28] MEDS ORDERED: TEMAZEPAM 15 MG CAP PO PRN (00:15)
[2020-04-28 05:20] VITALS: BP 120/90
[2020-04-28] MEDS: OCTREOTIDE ACETATE 100 MCG/ML VL SUBCUT SCH (06:18)
[2020-04-28] MEDS: SPIRONOLACTONE 25 MG TAB PO SCH (06:18)
[2020-04-28] MEDS: DEMECLOCYCLINE HCL 150 MG TAB PO SCH ×2 (06:18)
[2020-04-28] MEDS: MIDODRINE HCL 10 MG TAB PO SCH (06:18)
[2020-04-28] MEDS: SUCRALFATE 1 GM/10 ML ORAL SUSP PO SCH ×2 (07:00→11:30)
[2020-04-28 07:48] LABS: Basophils # (auto) 0 10 ^3/uL (0-0.2); Basophils % (auto) 0.7 % (0.0-2.0); Eosinophils # (auto) 0 10 ^3/uL (0-0.8); Eosinophils % (auto) 0.8 % (0.0-7.0); Hematocrit 37.2 % (41.0-53.0); Hemoglobin 12.1 g/dL (13.5-17.5); Lymphocytes # (auto) 1.2 10 ^3/uL (0.4-5.4); Lymphocytes % (auto) 20.1 % (10.0-50.0); Mean Corpuscular Hemoglobin 31.1 pg (28.0-32.0); Mean Corpuscular Hgb Conc. 32.6 g/dL (32.0-36.0); Mean Corpuscular Volume 95.4 fL (80.0-100.0); Monocytes # (auto) 0.5 10 ^3/uL (0-1.3); Monocytes % (auto) 8.4 % (0.0-12.0); Nucleated Red Blood Cells % 0.1 %; Platelet Count (auto) 254 10^3/uL (140-450); Red Cell Distribution Width 19.2 % (11.8-14.3); White Blood Cell 5.7 10^3/uL (4.4-10.8)
[2020-04-28 07:54] LABS: Albumin 3.1 g/dL (3.4-5.0); Calcium 8.1 mg/dL (8.5-10.1); Potassium 3.5 mmol/L (3.5-5.1)
[2020-04-28 07:56] LABS: BUN/Creatinine Ratio 18.9
[2020-04-28 07:59] LABS: Bilirubin, Total 3.3 mg/dL (0.2-1.0); Total Protein 7.2 g/dL (6.4-8.2)
[2020-04-28] MEDS: PANTOPRAZOLE 40 MG TAB PO SCH (08:27)
[2020-04-28] MEDS: FOLIC ACID 1 MG TAB PO SCH (08:27)
[2020-04-28] MEDS: THIAMINE HCL 100 MG TAB PO SCH (08:27)
[2020-04-28] MEDS: MULTIPLE VITAMIN TAB PO SCH (08:27)
[2020-04-28] MEDS: NICOTINE 14 MG/24HR TOPICAL PATCH TD SCH (08:28)
[2020-04-28] MEDS: ASPirin 81 mg TAB PO SCH (08:28)
[2020-04-28] MEDS: METOPROLOL TARTRATE 25 MG TAB PO SCH (08:28)
[2020-04-28 09:00] VITALS: BP 112/82
--- NOTE | 2020-04-28 10:22 | NUR ---
IV PATIENT REFUSING IV INSERTION AT THIS TIME. WILL CONTINUE TO MONITOR Addendum: 04/28/20 at 1022 by SHEILA LEHMAN RN RN Amended: Links added.
--- NOTE | 2020-04-28 11:20 | NUR ---
AMA Note OLEGARIO LAWSON states they want to leave the hospital Against Medical Advice (AMA). Patient alert and oriented. Patient encouraged to stay for further treatment/stabilization. DR GOMEZ notified of patient's wishes. Patient advised of the risks and benefits of leaving AMA. Patient verbalized understanding. Patient encouraged to return to the ER if symptoms do not improve or worsen. No s/s of distress, SOB, pain noted on departure. Addendum: 04/28/20 at 1142 by SHEILA LEHMAN RN RN IV ALREADY DISCONTINUED PRIOR TO SHIFT. TELEMETRY UNIT SENT BACK TO ICU
== END 2020-04-28 11:45 | disposition left against medical advice (07) | DRG 194 ==
LOC: ER 08:21 → TELE 08:22 → TELE-EAST 17:00 → TELE-CENTR 04-20 10:30
PROVIDERS: ADMIT Hospitalist; ATTEND Internal Medicine Nephrology
DX: I50.23 Acute on chronic systolic (congestive) heart failure (principal); I42.7 Cardiomyopathy due to drug and external agent; J84.9 Interstitial pulmonary disease, unspecified; N17.0 Acute kidney failure with tubular necrosis; K70.10 Alcoholic hepatitis without ascites; K70.30 Alcoholic cirrhosis of liver without ascites; E44.0 Moderate protein-calorie malnutrition; G93.41 Metabolic encephalopathy; E87.1 Hypo-osmolality and hyponatremia; K72.00 Acute and subacute hepatic failure without coma; E87.6 Hypokalemia; I25.5 Ischemic cardiomyopathy; K21.9 Gastro-esophageal reflux disease without esophagitis; K29.70 Gastritis, unspecified, without bleeding; N18.3 Chronic kidney disease, stage 3 (moderate); F10.10 Alcohol abuse, uncomplicated; D63.8 Anemia in other chronic diseases classified elsewhere; F15.129 Other stimulant abuse with intoxication, unspecified; F17.210 Nicotine dependence, cigarettes, uncomplicated; I42.0 Dilated cardiomyopathy; K76.7 Hepatorenal syndrome; I95.9 Hypotension, unspecified; Z20.828 Contact with and (suspected) exposure to other viral communicable diseases; T43.625A Adverse effect of amphetamines, initial encounter; J44.1 Chronic obstructive pulmonary disease with (acute) exacerbation; Z53.29 Procedure and treatment not carried out because of patient's decision for other reasons; Z79.82 Long term (current) use of aspirin; Z79.899 Other long term (current) drug therapy; Z91.19 Patient's noncompliance with other medical treatment and regimen; Y92.89 Other specified places as the place of occurrence of the external cause
CPT/HCPCS: 36415; 71045; 71046; 76705; 80053; 80061; 80307; 81001; 82140; 82570; 82728; 83036; 83605; 83615; 83735; 83880; 83935; 84156; 84300; 84443; 84484; 85025; 85379; 85610; 85730; 86141; 87081; 87086; 87426; 93005; 96361; 96374; G0378; J1100; J2405; J3480; J3490; P9047

== ENCOUNTER 2020-04-28 20:18 | Inpatient (IN) | payer OTHER ==
[~2020-04-28] VITALS: Ht 180.3 cm; Wt 84.0 kg
[2020-04-28] MEDS ORDERED: FUROSEMIDE 40 MG/4 ML VIAL IV ONE (20:45)
[2020-04-28 21:28] LABS: Basophils # (auto) 0 10 ^3/uL (0-0.2); Basophils % (auto) 0.8 % (0.0-2.0); Eosinophils # (auto) 0 10 ^3/uL (0-0.8); Eosinophils % (auto) 0.3 % (0.0-7.0); Hematocrit 35.3 % (41.0-53.0); Hemoglobin 11.1 g/dL (13.5-17.5); Lymphocytes # (auto) 0.7 10 ^3/uL (0.4-5.4); Lymphocytes % (auto) 14.2 % (10.0-50.0); Mean Corpuscular Hemoglobin 30.3 pg (28.0-32.0); Mean Corpuscular Hgb Conc. 31.6 g/dL (32.0-36.0); Mean Corpuscular Volume 95.8 fL (80.0-100.0); Monocytes # (auto) 0.4 10 ^3/uL (0-1.3); Monocytes % (auto) 8.2 % (0.0-12.0); Neutrophils % (auto) 76.5 % (37.0-80.0); Nucleated Red Blood Cells % 0.3 %; Platelet Count (auto) 234 10^3/uL (140-450); Red Blood Cells 3.68 10^6/uL (4.5-5.90); Red Cell Distribution Width 19.1 % (11.8-14.3); White Blood Cell 5.2 10^3/uL (4.4-10.8)
[2020-04-28 21:42] LABS: INR 1.28 (0.9-1.15); Partial Thromboplastin Time 27.2 sec (23.0-31.2)
[2020-04-28] MEDS: VANCOMYCIN 1GM/250ML 250 ML IV SCH (21:42)
[2020-04-28 21:48] LABS: Albumin 3.2 g/dL (3.4-5.0); Anion Gap 9 (5-15); Blood Urea Nitrogen 19 mg/dL (7-18); Calcium 8.6 mg/dL (8.5-10.1); Carbon Dioxide 28 mmol/L (21-32); Chloride 95 mmol/L (98-107); Glucose 112 mg/dL (74-106); Potassium 3.6 mmol/L (3.5-5.1); Sodium 132 mmol/L (136-145)
[2020-04-28 21:53] LABS: Alanine Aminotransferase 261 U/L (16-61); Aspartate Aminotransferase 196 U/L (15-37); BUN/Creatinine Ratio 17.9; GFR African American 102 mL/min; GFR Non-African American 84 mL/min; Total Protein 6.7 g/dL (6.4-8.2)
[2020-04-28 21:56] LABS: Alkaline Phosphatase 184 U/L (45-117); Bilirubin, Total 2.9 mg/dL (0.2-1.0); Creatine Kinase IFCC 278 U/L (39-308)
[2020-04-28 22:02] LABS: Urine WBC None Seen /hpf (0 - 3)
[2020-04-28 22:28] LABS: Urine Bacteria NONE SEEN /hpf (None Seen); Urine Blood Negative /uL (Negative)
[2020-04-28 22:29] LABS: Amphetamine Screen, Urine NEGATIVE (NEGATIVE); Barbiturate Scree,Urine NEGATIVE (NEGATIVE); Benzodiazephine Screen, Urine NEGATIVE (NEGATIVE); Cannabinoid Screen, Urine NEGATIVE (NEGATIVE); Cocaine Screen, Urine NEGATIVE (NEGATIVE); Opiate Scree,Urine NEGATIVE (NEGATIVE)
[2020-04-28 22:31] LABS: Lactic Acid w/Reflex 4.5 mmol/L (0.4-2.0)
[2020-04-28 22:37] LABS: Phencyclidine Screen, Urine NEGATIVE (NEGATIVE)
[2020-04-29] MEDS ORDERED: SODIUM CHLORIDE 0.9% 1,000 ML IV ONE (01:00)
[2020-04-29] MEDS ORDERED: IOHEXOL 350 MG/ML 100ML IJ ONE (01:12)
[2020-04-29] MEDS: PIPERACILLIN-TAZOB 3.375GM 100 ML IV SCH ×3 (02:29→12:50)
[2020-04-29 02:30] VITALS: BP 99/70
[2020-04-29] MEDS ORDERED: ACETAMINOPHEN 325 MG TAB PO PRN (02:30)
[2020-04-29] MEDS ORDERED: ONDANSETRON HCL 4 MG/2 ML VIAL IV PRN (02:30)
[2020-04-29] MEDS ORDERED: IPRATROPIUM BROM 0.5 MG/2.5ML INH SOL NEB PRN (02:30)
[2020-04-29] MEDS ORDERED: DOCUSATE SOD 100 MG CAP PO PRN (02:30)
[2020-04-29] MEDS ORDERED: ALBUTEROL SULF 2.5 MG/0.5ML(0.5%) NEB SOLN NEB PRN (02:30)
[2020-04-29 06:36] LABS: Basophils # (auto) 0.1 10 ^3/uL (0-0.2); Basophils % (auto) 1.1 % (0.0-2.0); Eosinophils # (auto) 0 10 ^3/uL (0-0.8); Eosinophils % (auto) 0.5 % (0.0-7.0); Hematocrit 35.5 % (41.0-53.0); Hemoglobin 11.1 g/dL (13.5-17.5); Mean Corpuscular Hemoglobin 29.9 pg (28.0-32.0); Mean Corpuscular Hgb Conc. 31.4 g/dL (32.0-36.0); Mean Corpuscular Volume 95.2 fL (80.0-100.0); Monocytes # (auto) 0.5 10 ^3/uL (0-1.3); Monocytes % (auto) 9.7 % (0.0-12.0); Neutrophils # (auto) 3.8 10 ^3/uL (1.6-8.6); Neutrophils % (auto) 70.7 % (37.0-80.0); Platelet Count (auto) 218 10^3/uL (140-450); Red Blood Cells 3.73 10^6/uL (4.5-5.90); Red Cell Distribution Width 19.1 % (11.8-14.3); White Blood Cell 5.4 10^3/uL (4.4-10.8)
[2020-04-29 06:44] LABS: Anion Gap 6 (5-15); Blood Urea Nitrogen 14 mg/dL (7-18); Calcium 8.5 mg/dL (8.5-10.1); Carbon Dioxide 30 mmol/L (21-32); Chloride 95 mmol/L (98-107); Glucose 94 mg/dL (74-106); Potassium 3.2 mmol/L (3.5-5.1); Sodium 131 mmol/L (136-145)
[2020-04-29 06:49] LABS: BUN/Creatinine Ratio 14.1; Cholesterol 61 mg/dL (< 200); GFR African American 110 mL/min; GFR Non-African American 91 mL/min; HDL Cholesterol 16 mg/dL (40-59); LDL Cholesterol 49 mg/dL (< 100); Triglycerides 48 mg/dL (< 150)
[2020-04-29] MEDS: VANCOMYCIN 1GM/250ML 250 ML IV SCH (07:42)
[2020-04-29] MEDS: ASPirin-EC 81 mg tab PO SCH (07:43)
[2020-04-29] MEDS: PANTOPRAZOLE 40 MG TAB PO SCH (07:43)
[2020-04-29] MEDS: CARVEDILOL 3.125 MG TAB PO SCH ×2 (07:43→21:41)
[2020-04-29] MEDS: levoFLOXacin 500 MG TAB PO SCH (07:43)
[2020-04-29] MEDS: cefTRIAXone 1GM/50ML D5W 50 ML IV SCH (07:43)
[2020-04-29] MEDS: NICOTINE 21MG/24 HR TOPICAL PATCH TD SCH (07:44)
[2020-04-29] MEDS ORDERED: LORazepam 2MG/ML-1ML VIAL IV ONE (09:15)
[2020-04-29] MEDS ORDERED: FUROSEMIDE 40 MG/4 ML VIAL IV SCH (10:00)
[2020-04-29] MEDS ORDERED: LISINOPRIL 5 MG TAB PO SCH (10:00)
[2020-04-29] MEDS ORDERED: POTASSIUM CHL 20 Meq TABLET PO SCH (10:00)
[2020-04-29] MEDS ORDERED: POTASSIUM EFFERVESENT TAB 25 MEQ PO ONE (14:30)
[2020-04-29] MEDS: FUROSEMIDE 40 MG/4 ML VIAL IV SCH (18:17)
[2020-04-29] MEDS: MORPHINE SULF INJ 2 MG/ML SYRINGE 1ML IV PRN (20:20)
[2020-04-29 22:36] VITALS: BP 111/87
[2020-04-30] MEDS: MORPHINE SULF INJ 2 MG/ML SYRINGE 1ML IV PRN ×4 (00:35→20:08)
[2020-04-30 05:29] VITALS: BP 121/97
[2020-04-30] MEDS: FUROSEMIDE 40 MG/4 ML VIAL IV SCH ×2 (05:41→17:47)
[2020-04-30 06:44] LABS: BUN/Creatinine Ratio 16.8; Calcium 8.7 mg/dL (8.5-10.1); Potassium 3.9 mmol/L (3.5-5.1)
[2020-04-30 08:10] VITALS: BP 126/86
[2020-04-30 09:00] VITALS: BP 126/86
[2020-04-30] MEDS: cefTRIAXone 1GM/50ML D5W 50 ML IV SCH (10:05)
[2020-04-30] MEDS: CARVEDILOL 3.125 MG TAB PO SCH ×2 (10:05→22:17)
[2020-04-30] MEDS: ASPirin-EC 81 mg tab PO SCH (10:05)
[2020-04-30] MEDS: POTASSIUM EFFERVESENT TAB 25 MEQ PO SCH (10:06)
[2020-04-30] MEDS: PANTOPRAZOLE 40 MG TAB PO SCH (10:06)
[2020-04-30] MEDS: levoFLOXacin 500 MG TAB PO SCH (10:06)
[2020-04-30] MEDS: NICOTINE 21MG/24 HR TOPICAL PATCH TD SCH (10:07)
[2020-04-30 13:00] VITALS: BP 117/83
[2020-04-30 17:13] VITALS: BP 107/76
[2020-04-30 22:00] VITALS: BP 112/76
[2020-05-01] MEDS: MORPHINE SULF INJ 2 MG/ML SYRINGE 1ML IV PRN ×4 (03:22→22:29)
[2020-05-01 05:00] VITALS: BP 104/68
[2020-05-01] MEDS: FUROSEMIDE 40 MG/4 ML VIAL IV SCH ×2 (05:29→17:50)
[2020-05-01 06:10] LABS: Lactic Acid w/Reflex 2.4 mmol/L (0.4-2.0)
[2020-05-01 06:14] LABS: Albumin 3.1 g/dL (3.4-5.0); Potassium 4.6 mmol/L (3.5-5.1)
[2020-05-01 06:19] LABS: BUN/Creatinine Ratio 22.1; Bilirubin, Total 2.9 mg/dL (0.2-1.0); Total Protein 6.7 g/dL (6.4-8.2)
[2020-05-01 08:00] VITALS: BP 112/71
[2020-05-01 09:00] VITALS: BP 112/71
[2020-05-01] MEDS: cefTRIAXone 1GM/50ML D5W 50 ML IV SCH (09:11)
[2020-05-01] MEDS: ASPirin-EC 81 mg tab PO SCH (09:12)
[2020-05-01] MEDS: POTASSIUM EFFERVESENT TAB 25 MEQ PO SCH (09:12)
[2020-05-01] MEDS: NICOTINE 21MG/24 HR TOPICAL PATCH TD SCH (09:13)
[2020-05-01] MEDS: levoFLOXacin 500 MG TAB PO SCH (09:18)
[2020-05-01] MEDS: PANTOPRAZOLE 40 MG TAB PO SCH (09:18)
[2020-05-01] MEDS: CARVEDILOL 3.125 MG TAB PO SCH ×2 (09:25→22:28)
[2020-05-01] MEDS ORDERED: UREA 15gm PO Powder PKG PO SCH (10:00)
[2020-05-01 12:46] LABS: Alcohol, Urine < 3.0 mg/dL (0-10); Amphetamine Screen, Urine NEGATIVE (NEGATIVE); Barbiturate Scree,Urine NEGATIVE (NEGATIVE); Benzodiazephine Screen, Urine NEGATIVE (NEGATIVE); Cannabinoid Screen, Urine NEGATIVE (NEGATIVE); Cocaine Screen, Urine NEGATIVE (NEGATIVE); Opiate Scree,Urine POSITIVE (NEGATIVE); Phencyclidine Screen, Urine NEGATIVE (NEGATIVE)
[2020-05-01 13:00] VITALS: BP 108/75
[2020-05-01] MEDS: UREA 15gm PO Powder PKG PO SCH (15:18)
[2020-05-01 17:00] VITALS: BP 109/70
[2020-05-01 23:07] VITALS: BP 111/79
[2020-05-02] MEDS: MORPHINE SULF INJ 2 MG/ML SYRINGE 1ML IV PRN ×2 (02:38→06:32)
[2020-05-02 06:00] VITALS: BP 121/88
[2020-05-02 06:02] VITALS: BP 120/92
[2020-05-02] MEDS: FUROSEMIDE 40 MG/4 ML VIAL IV SCH ×2 (06:31→17:35)
[2020-05-02 07:25] LABS: Albumin 3.1 g/dL (3.4-5.0); BUN/Creatinine Ratio 33.1; Bilirubin, Total 2.3 mg/dL (0.2-1.0); Calcium 8.8 mg/dL (8.5-10.1); Magnesium 2.2 mg/dL (1.6-2.6); Total Protein 6.6 g/dL (6.4-8.2)
[2020-05-02] MEDS: cefTRIAXone 1GM/50ML D5W 50 ML IV SCH (10:08)
[2020-05-02] MEDS: CARVEDILOL 3.125 MG TAB PO SCH ×2 (10:08→22:09)
[2020-05-02] MEDS: ASPirin-EC 81 mg tab PO SCH (10:08)
[2020-05-02] MEDS: POTASSIUM EFFERVESENT TAB 25 MEQ PO SCH (10:09)
[2020-05-02] MEDS: levoFLOXacin 500 MG TAB PO SCH (10:09)
[2020-05-02] MEDS: NICOTINE 21MG/24 HR TOPICAL PATCH TD SCH (10:09)
[2020-05-02] MEDS: PANTOPRAZOLE 40 MG TAB PO SCH (10:09)
[2020-05-02 10:12] LABS: Hepatitis B Surface Antibody Positive
[2020-05-02] MEDS: UREA 15gm PO Powder PKG PO SCH (10:32)
[2020-05-02 10:51] LABS: Hepatitis A Total Antibody Positive
[2020-05-02 12:59] LABS: Hepatitis A Ab IgM Negative
[2020-05-02 13:00] LABS: Hepatitis B Core IgM Negative; Hepatitis B Core Total AB Negative
[2020-05-02 13:01] LABS: Hepatitis B Surface Antigen Negative (Negative); Hepatitis C Antibody Negative (Negative)
[2020-05-02] MEDS: HYDROcodone-ACET 5/325MG TAB PO PRN ×2 (14:15→18:03)
[2020-05-02 14:23] VITALS: BP 95/78
[2020-05-02 17:44] VITALS: BP 101/63
[2020-05-02 22:00] VITALS: BP 115/81
[2020-05-02 23:12] VITALS: BP 115/81
[2020-05-03] MEDS: HYDROcodone-ACET 5/325MG TAB PO PRN (03:18)
[2020-05-03 05:30] VITALS: BP 125/82
[2020-05-03 06:13] LABS: Albumin 2.9 g/dL (3.4-5.0); Calcium 8.5 mg/dL (8.5-10.1)
[2020-05-03] MEDS: FUROSEMIDE 40 MG/4 ML VIAL IV SCH ×3 (06:14→18:44)
[2020-05-03 06:17] LABS: BUN/Creatinine Ratio 38.1; Total Protein 6.4 g/dL (6.4-8.2)
[2020-05-03 08:00] VITALS: BP 109/71
[2020-05-03 09:00] VITALS: BP 109/71
[2020-05-03] MEDS: POTASSIUM EFFERVESENT TAB 25 MEQ PO SCH (09:30)
[2020-05-03] MEDS: cefTRIAXone 1GM/50ML D5W 50 ML IV SCH (09:30)
[2020-05-03] MEDS: PANTOPRAZOLE 40 MG TAB PO SCH (09:31)
[2020-05-03] MEDS: CARVEDILOL 3.125 MG TAB PO SCH ×2 (09:32→22:21)
[2020-05-03] MEDS: levoFLOXacin 500 MG TAB PO SCH (09:32)
[2020-05-03] MEDS: UREA 15gm PO Powder PKG PO SCH (09:33)
[2020-05-03] MEDS: ASPirin-EC 81 mg tab PO SCH (09:33)
[2020-05-03] MEDS: NICOTINE 21MG/24 HR TOPICAL PATCH TD SCH (09:33)
[2020-05-03 13:00] VITALS: BP 103/68
[2020-05-03] MEDS ORDERED: POLYETHYLENE GLYCOL 17 GM PWDR PO ONE (13:30)
[2020-05-03] MEDS: MORPHINE SULF INJ 2 MG/ML SYRINGE 1ML IV PRN ×2 (14:15→21:10)
[2020-05-03 17:00] VITALS: BP 104/66
[2020-05-03 22:00] VITALS: BP 116/79
[2020-05-04 05:05] LABS: Basophils # (auto) 0.1 10 ^3/uL (0-0.2); Basophils % (auto) 1.3 % (0.0-2.0); Eosinophils # (auto) 0.1 10 ^3/uL (0-0.8); Eosinophils % (auto) 1.2 % (0.0-7.0); Hematocrit 34.2 % (41.0-53.0); Hemoglobin 10.9 g/dL (13.5-17.5); Lymphocytes # (auto) 1.1 10 ^3/uL (0.4-5.4); Mean Corpuscular Hemoglobin 30.4 pg (28.0-32.0); Mean Corpuscular Volume 94.9 fL (80.0-100.0); Monocytes # (auto) 0.5 10 ^3/uL (0-1.3); Monocytes % (auto) 8.2 % (0.0-12.0); Neutrophils # (auto) 4.5 10 ^3/uL (1.6-8.6); Neutrophils % (auto) 71.3 % (37.0-80.0); Nucleated Red Blood Cells % 0.1 %; Platelet Count (auto) 182 10^3/uL (140-450); Red Cell Distribution Width 18.7 % (11.8-14.3); White Blood Cell 6.4 10^3/uL (4.4-10.8)
[2020-05-04 05:16] VITALS: BP 109/76
[2020-05-04 05:17] LABS: INR 1.18 (0.9-1.15); Partial Thromboplastin Time 27.4 sec (23.0-31.2)
[2020-05-04 05:21] LABS: Albumin 2.9 g/dL (3.4-5.0); Calcium 8.8 mg/dL (8.5-10.1); Potassium 3.6 mmol/L (3.5-5.1)
[2020-05-04 05:23] LABS: BUN/Creatinine Ratio 33.9
[2020-05-04 05:26] LABS: Bilirubin, Total 1.7 mg/dL (0.2-1.0); Total Protein 6.5 g/dL (6.4-8.2)
[2020-05-04] MEDS: FUROSEMIDE 40 MG/4 ML VIAL IV SCH ×2 (06:38→17:51)
[2020-05-04 09:00] VITALS: BP 97/67
[2020-05-04] MEDS: CARVEDILOL 3.125 MG TAB PO SCH ×2 (10:00→21:16)
[2020-05-04] MEDS: POTASSIUM EFFERVESENT TAB 25 MEQ PO SCH (10:23)
[2020-05-04] MEDS: ASPirin-EC 81 mg tab PO SCH (10:23)
[2020-05-04] MEDS: levoFLOXacin 500 MG TAB PO SCH (10:23)
[2020-05-04] MEDS: cefTRIAXone 1GM/50ML D5W 50 ML IV SCH (10:23)
[2020-05-04] MEDS: PANTOPRAZOLE 40 MG TAB PO SCH (10:23)
[2020-05-04] MEDS: UREA 15gm PO Powder PKG PO SCH (10:24)
[2020-05-04] MEDS: NICOTINE 21MG/24 HR TOPICAL PATCH TD SCH (10:25)
[2020-05-04 13:00] VITALS: BP 118/71
[2020-05-04] MEDS: MORPHINE SULF INJ 2 MG/ML SYRINGE 1ML IV PRN (13:07)
[2020-05-04 17:00] VITALS: BP 117/79
[2020-05-04] MEDS: Ensure HIGH Protein Chocolate 8oz Bottle PO SCH (18:00)
[2020-05-04 22:20] VITALS: BP 121/83
[2020-05-05 04:55] VITALS: BP 102/76
[2020-05-05] MEDS: FUROSEMIDE 40 MG/4 ML VIAL IV SCH ×3 (05:34→09:08)
[2020-05-05 05:53] LABS: Basophils # (auto) 0.1 10 ^3/uL (0-0.2); Eosinophils # (auto) 0.1 10 ^3/uL (0-0.8); Eosinophils % (auto) 1.3 % (0.0-7.0); Hematocrit 34.4 % (41.0-53.0); Hemoglobin 11.1 g/dL (13.5-17.5); Lymphocytes # (auto) 0.9 10 ^3/uL (0.4-5.4); Lymphocytes % (auto) 16.6 % (10.0-50.0); Mean Corpuscular Hemoglobin 30.6 pg (28.0-32.0); Mean Corpuscular Hgb Conc. 32.2 g/dL (32.0-36.0); Mean Corpuscular Volume 94.9 fL (80.0-100.0); Monocytes # (auto) 0.5 10 ^3/uL (0-1.3); Neutrophils # (auto) 3.8 10 ^3/uL (1.6-8.6); Neutrophils % (auto) 71.1 % (37.0-80.0); Nucleated Red Blood Cells % 0.1 %; Platelet Count (auto) 172 10^3/uL (140-450); Red Blood Cells 3.62 10^6/uL (4.5-5.90); Red Cell Distribution Width 19.1 % (11.8-14.3); White Blood Cell 5.4 10^3/uL (4.4-10.8)
[2020-05-05 06:10] LABS: Albumin 2.8 g/dL (3.4-5.0); Calcium 8.3 mg/dL (8.5-10.1); Potassium 3.7 mmol/L (3.5-5.1)
[2020-05-05 06:15] LABS: BUN/Creatinine Ratio 33.1; Bilirubin, Total 1.6 mg/dL (0.2-1.0); Total Protein 6.3 g/dL (6.4-8.2)
[2020-05-05] MEDS: Ensure HIGH Protein Chocolate 8oz Bottle PO SCH ×3 (08:00→18:25)
[2020-05-05 09:00] VITALS: BP 120/73
[2020-05-05] MEDS: NICOTINE 21MG/24 HR TOPICAL PATCH TD SCH (09:08)
[2020-05-05] MEDS: cefTRIAXone 1GM/50ML D5W 50 ML IV SCH (09:08)
[2020-05-05] MEDS: MORPHINE SULF INJ 2 MG/ML SYRINGE 1ML IV PRN ×3 (09:08→22:55)
[2020-05-05] MEDS: ASPirin-EC 81 mg tab PO SCH (09:09)
[2020-05-05] MEDS: levoFLOXacin 500 MG TAB PO SCH (09:09)
[2020-05-05] MEDS: PANTOPRAZOLE 40 MG TAB PO SCH (09:09)
[2020-05-05] MEDS: CARVEDILOL 3.125 MG TAB PO SCH ×2 (09:09→22:54)
[2020-05-05] MEDS: POTASSIUM EFFERVESENT TAB 25 MEQ PO SCH (09:10)
[2020-05-05] MEDS: UREA 15gm PO Powder PKG PO SCH (09:10)
[2020-05-05 13:00] VITALS: BP 117/80
[2020-05-05 17:00] VITALS: BP 118/75
[2020-05-05 22:00] VITALS: BP 116/81
[2020-05-06] MEDS: HYDROcodone-ACET 5/325MG TAB PO PRN ×2 (00:44→09:18)
[2020-05-06 05:00] VITALS: BP 110/69
[2020-05-06] MEDS: MORPHINE SULF INJ 2 MG/ML SYRINGE 1ML IV PRN ×2 (05:15→21:29)
[2020-05-06 06:28] LABS: Basophils # (auto) 0.1 10 ^3/uL (0-0.2); Eosinophils # (auto) 0.1 10 ^3/uL (0-0.8); Eosinophils % (auto) 1.6 % (0.0-7.0); Hemoglobin 10.8 g/dL (13.5-17.5); Lymphocytes # (auto) 1.1 10 ^3/uL (0.4-5.4); Lymphocytes % (auto) 22.8 % (10.0-50.0); Mean Corpuscular Hemoglobin 30.2 pg (28.0-32.0); Mean Corpuscular Hgb Conc. 31.9 g/dL (32.0-36.0); Mean Corpuscular Volume 94.6 fL (80.0-100.0); Monocytes # (auto) 0.4 10 ^3/uL (0-1.3); Monocytes % (auto) 8.2 % (0.0-12.0); Neutrophils # (auto) 3.3 10 ^3/uL (1.6-8.6); Neutrophils % (auto) 66.4 % (37.0-80.0); Nucleated Red Blood Cells % 0.1 %; Platelet Count (auto) 168 10^3/uL (140-450); Red Blood Cells 3.59 10^6/uL (4.5-5.90); Red Cell Distribution Width 18.9 % (11.8-14.3)
[2020-05-06 07:11] LABS: Potassium 3.5 mmol/L (3.5-5.1)
[2020-05-06 07:29] LABS: Albumin 2.6 g/dL (3.4-5.0); BUN/Creatinine Ratio 32.7; Bilirubin, Total 1.5 mg/dL (0.2-1.0); Calcium 8.3 mg/dL (8.5-10.1)
[2020-05-06 08:00] VITALS: BP 108/77
[2020-05-06 09:00] VITALS: BP 121/80
[2020-05-06] MEDS: Ensure HIGH Protein Chocolate 8oz Bottle PO SCH ×3 (09:16→18:34)
[2020-05-06] MEDS: cefTRIAXone 1GM/50ML D5W 50 ML IV SCH (09:17)
[2020-05-06] MEDS: FUROSEMIDE 40 MG/4 ML VIAL IV SCH (09:17)
[2020-05-06] MEDS: ASPirin-EC 81 mg tab PO SCH (09:18)
[2020-05-06] MEDS: CARVEDILOL 3.125 MG TAB PO SCH ×2 (09:18→21:28)
[2020-05-06] MEDS: levoFLOXacin 500 MG TAB PO SCH (09:18)
[2020-05-06] MEDS: PANTOPRAZOLE 40 MG TAB PO SCH (12:04)
[2020-05-06] MEDS: POTASSIUM EFFERVESENT TAB 25 MEQ PO SCH (12:04)
[2020-05-06] MEDS: NICOTINE 21MG/24 HR TOPICAL PATCH TD SCH (12:05)
[2020-05-06] MEDS: UREA 15gm PO Powder PKG PO SCH (12:05)
[2020-05-06 13:26] VITALS: BP 108/77
[2020-05-06 16:32] VITALS: BP 112/74
[2020-05-06 22:00] VITALS: BP 119/77
[2020-05-07] MEDS: HYDROcodone-ACET 5/325MG TAB PO PRN ×2 (00:05→09:25)
[2020-05-07 05:00] VITALS: BP 112/78
[2020-05-07] MEDS: MORPHINE SULF INJ 2 MG/ML SYRINGE 1ML IV PRN (05:23)
[2020-05-07 06:20] LABS: Basophils # (auto) 0.1 10 ^3/uL (0-0.2); Basophils % (auto) 1.5 % (0.0-2.0); Eosinophils # (auto) 0.1 10 ^3/uL (0-0.8); Eosinophils % (auto) 1.4 % (0.0-7.0); Hematocrit 34.6 % (41.0-53.0); Hemoglobin 11.2 g/dL (13.5-17.5); Lymphocytes # (auto) 0.7 10 ^3/uL (0.4-5.4); Lymphocytes % (auto) 14.9 % (10.0-50.0); Mean Corpuscular Hemoglobin 30.5 pg (28.0-32.0); Mean Corpuscular Hgb Conc. 32.3 g/dL (32.0-36.0); Mean Corpuscular Volume 94.3 fL (80.0-100.0); Monocytes # (auto) 0.5 10 ^3/uL (0-1.3); Monocytes % (auto) 9.8 % (0.0-12.0); Neutrophils # (auto) 3.6 10 ^3/uL (1.6-8.6); Neutrophils % (auto) 72.4 % (37.0-80.0); Nucleated Red Blood Cells % 0.1 %; Platelet Count (auto) 150 10^3/uL (140-450); Red Blood Cells 3.67 10^6/uL (4.5-5.90); Red Cell Distribution Width 18.3 % (11.8-14.3); White Blood Cell 4.9 10^3/uL (4.4-10.8)
[2020-05-07 06:37] LABS: Potassium 3.6 mmol/L (3.5-5.1)
[2020-05-07 06:55] LABS: Albumin 2.9 g/dL (3.4-5.0); BUN/Creatinine Ratio 30.8; Bilirubin, Total 1.6 mg/dL (0.2-1.0); Calcium 8.7 mg/dL (8.5-10.1); Total Protein 6.6 g/dL (6.4-8.2)
[2020-05-07 08:00] VITALS: BP 108/72
[2020-05-07] MEDS ORDERED: LEVOTHYROXINE SODIUM 25 MCG TAB PO ONE (08:30)
[2020-05-07 09:00] VITALS: BP 108/72
[2020-05-07] MEDS: FUROSEMIDE 40 MG/4 ML VIAL IV SCH (09:23)
[2020-05-07] MEDS: Ensure HIGH Protein Chocolate 8oz Bottle PO SCH ×2 (09:23→13:08)
[2020-05-07] MEDS: ASPirin-EC 81 mg tab PO SCH (09:24)
[2020-05-07] MEDS: POTASSIUM EFFERVESENT TAB 25 MEQ PO SCH (09:24)
[2020-05-07] MEDS: CARVEDILOL 3.125 MG TAB PO SCH (09:24)
[2020-05-07] MEDS: PANTOPRAZOLE 40 MG TAB PO SCH (09:24)
[2020-05-07] MEDS: NICOTINE 21MG/24 HR TOPICAL PATCH TD SCH (09:25)
[2020-05-07] MEDS: UREA 15gm PO Powder PKG PO SCH (09:25)
[2020-05-07] MEDS ORDERED: LEV25T PO (10:18)
[2020-05-07] MEDS ORDERED: SACU1TAB PO (10:18)
[2020-05-07 10:53] VITALS: BP 108/72
[2020-05-07 11:12] VITALS: BP 112/74
[2020-05-08] MEDS ORDERED: LEVOTHYROXINE SODIUM 25 MCG TAB PO SCH (07:00)
== END 2020-05-07 12:00 | disposition home or self-care (01) | DRG 194 ==
LOC: ER 20:18 → EDBD 20:18 → TELE 20:19 → TELE-CENTR 04-29 17:48
PROVIDERS: ADMIT Hospitalist; ATTEND Internal Medicine
PROC: 0W993ZZ Drainage of Right Pleural Cavity, Percutaneous Approach (ICD-10-PCS; principal; 2020-04-30)
DX: I50.23 Acute on chronic systolic (congestive) heart failure (principal); N17.0 Acute kidney failure with tubular necrosis; E44.0 Moderate protein-calorie malnutrition; E87.1 Hypo-osmolality and hyponatremia; E87.2 Acidosis; J91.8 Pleural effusion in other conditions classified elsewhere; I42.7 Cardiomyopathy due to drug and external agent; F10.20 Alcohol dependence, uncomplicated; F19.10 Other psychoactive substance abuse, uncomplicated; D63.8 Anemia in other chronic diseases classified elsewhere; F15.10 Other stimulant abuse, uncomplicated; K75.81 Nonalcoholic steatohepatitis (NASH); K62.5 Hemorrhage of anus and rectum; Z20.828 Contact with and (suspected) exposure to other viral communicable diseases; E03.9 Hypothyroidism, unspecified; I42.0 Dilated cardiomyopathy; F17.210 Nicotine dependence, cigarettes, uncomplicated; I50.82 Biventricular heart failure; Z68.25 Body mass index [BMI] 25.0-25.9, adult; F41.9 Anxiety disorder, unspecified; R74.0 Nonspecific elevation of levels of transaminase and lactic acid dehydrogenase [LDH]; Z91.19 Patient's noncompliance with other medical treatment and regimen; Z91.14 Patient's other noncompliance with medication regimen; Z79.899 Other long term (current) drug therapy; Y90.9 Presence of alcohol in blood, level not specified
CPT/HCPCS: 32555; 36415; 36600; 71045; 71275; 76700; 80048; 80053; 80061; 80074; 80307; 80320; 81001; 82270; 82550; 82805; 83605; 83615; 83735; 83880; 83930; 83935; 83986; 84439; 84443; 84484; 85025; 85379; 85384; 85610; 85730; 86703; 86704; 86706; 86708; 86803; 86850; 86900; 86901; 87040; 87070; 87081; 87086; 87205; 87340; 87426; 89051; 93005; 93970; 96374; 99291; G0378; J0696; J2543

== ENCOUNTER 2020-05-08 08:07 | Inpatient (IN) | payer OTHER ==
[~2020-05-08] VITALS: Ht 180.3 cm; Wt 83.3 kg
[~2020-05-08 08:07] MED LIST changes: +LEV25T PO; -LEVO500T21 PO; -LISI-275 PO; +SACU1TAB PO
[2020-05-08] MEDS ORDERED: SODIUM CHLORIDE 0.9% 1,000 ML IV ONE (08:29)
[2020-05-08 08:52] LABS: Basophils # (auto) 0 10 ^3/uL (0-0.2); Basophils % (auto) 0.5 % (0.0-2.0); Eosinophils # (auto) 0 10 ^3/uL (0-0.8); Eosinophils % (auto) 0.2 % (0.0-7.0); Hematocrit 34.5 % (41.0-53.0); Hemoglobin 10.9 g/dL (13.5-17.5); Lymphocytes # (auto) 0.7 10 ^3/uL (0.4-5.4); Lymphocytes % (auto) 10.4 % (10.0-50.0); Mean Corpuscular Hemoglobin 30.2 pg (28.0-32.0); Mean Corpuscular Hgb Conc. 31.6 g/dL (32.0-36.0); Mean Corpuscular Volume 95.4 fL (80.0-100.0); Monocytes # (auto) 0.5 10 ^3/uL (0-1.3); Monocytes % (auto) 7.9 % (0.0-12.0); Neutrophils # (auto) 5.2 10 ^3/uL (1.6-8.6); Nucleated Red Blood Cells % 0.1 %; Platelet Count (auto) 144 10^3/uL (140-450); Red Blood Cells 3.61 10^6/uL (4.5-5.90); White Blood Cell 6.4 10^3/uL (4.4-10.8)
[2020-05-08 09:05] LABS: Albumin 3.2 g/dL (3.4-5.0); Calcium 8.8 mg/dL (8.5-10.1); Potassium 3.7 mmol/L (3.5-5.1)
[2020-05-08 09:09] LABS: BUN/Creatinine Ratio 21.6; Bilirubin, Total 1.9 mg/dL (0.2-1.0)
[2020-05-08 09:16] LABS: Magnesium 2.1 mg/dL (1.6-2.6)
[2020-05-08] MEDS ORDERED: FUROSEMIDE 40 MG/4 ML VIAL IV ONE ×2 (10:45→13:00)
[2020-05-08 11:42] LABS: Lactic Acid w/Reflex 2.3 mmol/L (0.4-2.0)
[2020-05-08 12:05] LABS: Urine WBC None Seen /hpf (0 - 3)
[2020-05-08 12:25] LABS: Urine Bacteria NONE SEEN /hpf (None Seen); Urine Blood Negative /uL (Negative); Urine Specific Gravity 1.018 (1.001-1.035)
[2020-05-08] MEDS ORDERED: MORPHINE SULF INJ 2 MG/ML SYRINGE 1ML IV PRN ×3 (13:00→15:15)
[2020-05-08] MEDS ORDERED: NITROGLYCERIN 0.4 MG SL TAB SL PRN ×2 (13:00→15:15)
[2020-05-08 14:55] LABS: Amphetamine Screen, Urine NEGATIVE (NEGATIVE); Barbiturate Scree,Urine NEGATIVE (NEGATIVE); Benzodiazephine Screen, Urine NEGATIVE (NEGATIVE); Cannabinoid Screen, Urine NEGATIVE (NEGATIVE); Cocaine Screen, Urine NEGATIVE (NEGATIVE); Opiate Scree,Urine NEGATIVE (NEGATIVE); Phencyclidine Screen, Urine NEGATIVE (NEGATIVE)
[2020-05-08] MEDS ORDERED: cefTRIAXone 1GM/50ML D5W 50 ML IV ONE (15:00)
[2020-05-08] MEDS ORDERED: CLINDAMYCIN 600MG IV 50 ML IV ONE (15:00)
--- NOTE | 2020-05-08 15:00 | NUR ---
Telemetry admit from OLEGARIO MARTINS admitted to Telemetry unit after SBAR received. Patient oriented to Elvia Ramna, primary RN, unit, room, bed, and unit policies regarding patient care and visiting hours. Patient now on continuous telemetry monitoring, tele box # 44 and telemetry reading on arrival to unit is sinus tach 120's HR. Patient placed on bedside oxygen at 2L. Pt weighed by bedscale and encouraged to call if they need something. All questions and concerns addressed, patient verbalized understanding. Patient refused f/c insertion stating he will use the urinal. No acute distress or sob noted. Call light within reach.
[2020-05-08] MEDS ORDERED: LORazepam 2MG/ML-1ML VIAL IV PRN (15:15)
[2020-05-08] MEDS ORDERED: DOCUSATE SOD 100 MG CAP PO PRN (15:15)
[2020-05-08] MEDS ORDERED: ACETAMINOPHEN 325 MG TAB PO PRN (15:15)
[2020-05-08] MEDS ORDERED: ONDANSETRON HCL 4 MG/2 ML VIAL IV PRN (15:15)
[2020-05-08] MEDS ORDERED: ALUM & MAG HYDROX-SIMETH LIQ(MAALOX) 30 ML PO PRN (15:15)
[2020-05-08] MEDS ORDERED: TEMAZEPAM 15 MG CAP PO PRN (15:15)
[2020-05-08 16:36] VITALS: BP 109/75
--- NOTE | 2020-05-08 19:10 | NUR ---
Patient care endorse endorsed care to Michelle rn. Patient laying in bed no acute distress or sob noted. Call light within reach
[2020-05-08] MEDS: FUROSEMIDE 40 MG/4 ML VIAL IV SCH (19:18)
--- NOTE | 2020-05-08 19:41 | NUR ---
Opening Shift Note Assumed care of patient, awake and alert. No S/S of distress/SOB or pain. Instructed on POC and to call for assist PRN, will continue to monitor for changes Q1hr and PRN.
[2020-05-08] MEDS: CLINDAMYCIN 600MG IV 50 ML IV SCH (21:07)
[2020-05-08] MEDS: SACUBITRIL-VALSARTAN 24mg/26mg TAB PO SCH (21:08)
[2020-05-08] MEDS: HYDROcodone-ACET 5/325MG TAB PO PRN (21:37)
[2020-05-08] MEDS: CARVEDILOL 3.125 MG TAB PO SCH (21:38)
[2020-05-08 22:32] VITALS: BP 107/76
[2020-05-09] MEDS: FUROSEMIDE 40 MG/4 ML VIAL IV SCH (05:26)
[2020-05-09] MEDS: CLINDAMYCIN 600MG IV 50 ML IV SCH ×2 (05:27→14:13)
[2020-05-09 05:51] VITALS: BP 113/65
[2020-05-09] MEDS ORDERED: LEVOTHYROXINE SODIUM 25 MCG TAB PO SCH (07:00)
--- NOTE | 2020-05-09 07:17 | NUR ---
Care report given to Roselia, patient is resting no discomfort.
[2020-05-09 08:00] VITALS: BP 108/68
[2020-05-09] MEDS: SACUBITRIL-VALSARTAN 24mg/26mg TAB PO SCH (08:50)
[2020-05-09] MEDS: CARVEDILOL 3.125 MG TAB PO SCH (08:50)
[2020-05-09] MEDS ORDERED: cefTRIAXone 1GM/50ML D5W 50 ML IV SCH (09:00)
[2020-05-09] MEDS ORDERED: PANTOPRAZOLE 40 MG TAB PO SCH (10:00)
[2020-05-09] MEDS ORDERED: LISINOPRIL 5 MG TAB PO SCH (10:00)
[2020-05-09] MEDS ORDERED: ASPirin 81 mg TAB PO SCH (10:00)
[2020-05-09] MEDS ORDERED: POTASSIUM CHL 20 Meq TABLET PO SCH (10:00)
--- NOTE | 2020-05-09 10:15 | NUR ---
Assessment Per consult for alcohol/ meth use. Patient refused resources stating he does not have problems with alcohol or drugs. Patient is a 35-year-old male who is alert and oriented. Prior to admission patient lived home with friends and functioned independently. Patient informed me he can care for his own ADLs. Per patient he will return home to his prior living arrangements post discharge and family will transport him home. Patient has no need for DME. Patient informed me he came back to the hospital because he was having chest pain. Informed patient he has a right to speak to a social media marketing analyst regarding all care. Informed patient he has a right to participate in all discharge planning. Patient verbalized understanding and agreed to discharge plan. Informed GEMMA Christine. Addendum: 05/09/20 at 1023 by ISABEL HUSSEIN Amended: Links added.
--- NOTE | 2020-05-09 10:20 | NUR ---
DR OLIVEROS AT BED SIDE DISCUSSING POC WITH PATIENT. PATIENT VERBALIZES UNDERSTANDING.
[2020-05-09 12:00] VITALS: BP 111/53
[2020-05-09] MEDS: HYDROcodone-ACET 5/325MG TAB PO PRN (14:35)
[2020-05-09 15:06] VITALS: BP 111/65
--- NOTE | 2020-05-09 16:53 | NUR ---
Discharge instructions given as ordered. Encourage to follow up with PMD as instructed. All questions and concerns addressed. Patient verbalized understanding. Medication reconciliation form completed and copy given to patient. IV removed with catheter intact, pressure dressing applied. Telemetry unit returned to ICU. Patient taken to arranged taxi via wheelchair with all personal belongings, accompanied by staff. No distress noted at time of departure.
== END 2020-05-09 16:55 | disposition home or self-care (01) | DRG 194 ==
LOC: ER 08:07 → TELE 08:08 → TELE-CENTR 15:14
PROVIDERS: ADMIT Hospitalist; ATTEND Internal Medicine
DX: I50.23 Acute on chronic systolic (congestive) heart failure (principal); J69.0 Pneumonitis due to inhalation of food and vomit; N17.0 Acute kidney failure with tubular necrosis; J96.01 Acute respiratory failure with hypoxia; I42.7 Cardiomyopathy due to drug and external agent; E03.9 Hypothyroidism, unspecified; E44.1 Mild protein-calorie malnutrition; D64.9 Anemia, unspecified; F12.90 Cannabis use, unspecified, uncomplicated; F15.19 Other stimulant abuse with unspecified stimulant-induced disorder; E87.2 Acidosis; J90 Pleural effusion, not elsewhere classified; D63.8 Anemia in other chronic diseases classified elsewhere; E87.1 Hypo-osmolality and hyponatremia; K21.9 Gastro-esophageal reflux disease without esophagitis; I50.82 Biventricular heart failure; T43.625A Adverse effect of amphetamines, initial encounter; F10.10 Alcohol abuse, uncomplicated; F17.210 Nicotine dependence, cigarettes, uncomplicated; I87.2 Venous insufficiency (chronic) (peripheral); Z79.82 Long term (current) use of aspirin; Z91.19 Patient's noncompliance with other medical treatment and regimen; Y92.89 Other specified places as the place of occurrence of the external cause; Z68.25 Body mass index [BMI] 25.0-25.9, adult
CPT/HCPCS: 36415; 71046; 80053; 80307; 81001; 83605; 83735; 83880; 84443; 84484; 85025; 87040; 87081; 87086; 93005; G0378; J0696; J3490

== ENCOUNTER 2020-05-25 03:11 | Inpatient (IN) | payer OTHER ==
[~2020-05-25] VITALS: Ht 180.3 cm; Wt 74.8 kg
[2020-05-25 04:05] LABS: Basophils # (auto) 0.1 10 ^3/uL (0-0.2); Basophils % (auto) 1.1 % (0.0-2.0); Eosinophils # (auto) 0.1 10 ^3/uL (0-0.8); Eosinophils % (auto) 1.5 % (0.0-7.0); Hematocrit 34.2 % (41.0-53.0); Hemoglobin 11.2 g/dL (13.5-17.5); Lymphocytes # (auto) 0.9 10 ^3/uL (0.4-5.4); Lymphocytes % (auto) 19.5 % (10.0-50.0); Mean Corpuscular Hemoglobin 29.8 pg (28.0-32.0); Mean Corpuscular Hgb Conc. 32.7 g/dL (32.0-36.0); Monocytes # (auto) 0.4 10 ^3/uL (0-1.3); Neutrophils # (auto) 3.4 10 ^3/uL (1.6-8.6); Neutrophils % (auto) 69.9 % (37.0-80.0); Nucleated Red Blood Cells % 0.1 %; Platelet Count (auto) 314 10^3/uL (140-450); Red Blood Cells 3.76 10^6/uL (4.5-5.90); Red Cell Distribution Width 17.9 % (11.8-14.3); White Blood Cell 4.9 10^3/uL (4.4-10.8)
[2020-05-25 04:22] LABS: INR 1.41 (0.9-1.15); Partial Thromboplastin Time 27.7 sec (23.0-31.2)
[2020-05-25 04:23] LABS: Alanine Aminotransferase 34 U/L (16-61); Albumin 3.2 g/dL (3.4-5.0); Anion Gap 11 (5-15); Aspartate Aminotransferase 38 U/L (15-37); BUN/Creatinine Ratio 11.8; Blood Urea Nitrogen 14 mg/dL (7-18); Calcium 8.4 mg/dL (8.5-10.1); Carbon Dioxide 25 mmol/L (21-32); Chloride 95 mmol/L (98-107); GFR African American 89 mL/min; GFR Non-African American 74 mL/min; Glucose 94 mg/dL (74-106); Magnesium 1.8 mg/dL (1.6-2.6); Sodium 131 mmol/L (136-145)
[2020-05-25 04:26] LABS: Lactic Acid w/Reflex 2.5 mmol/L (0.4-2.0); Potassium 2.7 mmol/L (3.5-5.1)
[2020-05-25 04:29] LABS: Alkaline Phosphatase 162 U/L (45-117); Bilirubin, Total 3.2 mg/dL (0.2-1.0); Total Protein 6.7 g/dL (6.4-8.2)
[2020-05-25] MEDS ORDERED: POTASSIUM CHL 20 Meq TABLET PO ONE (06:15)
[2020-05-25 11:14] LABS: Urine Bacteria NONE SEEN /hpf (None Seen); Urine Blood Negative /uL (Negative); Urine Hyaline Cast FEW /lpf (0 - 2); Urine Mucus FEW (None Seen); Urine WBC 1 /hpf (0 - 3)
[2020-05-25] MEDS ORDERED: FUROSEMIDE 100 MG/10ML VIAL IV ONE (11:30)
[2020-05-25] MEDS ORDERED: POTASSIUM CHLORIDE 60 MEQ, LIDOCAINE 1% (LOCAL ANESTH.) 6 ML in SODIUM CHL 0.9% 500 ML IV ONE (11:30)
[2020-05-25] MEDS ORDERED: MORPHINE SULF INJ 2 MG/ML SYRINGE 1ML IV PRN ×2 (11:30→11:45)
[2020-05-25] MEDS ORDERED: NITROGLYCERIN 0.4 MG SL TAB SL PRN ×2 (11:30→11:45)
[2020-05-25] MEDS ORDERED: ALBUTEROL SULF 2.5 MG/0.5ML(0.5%) NEB SOLN NEB ONE (11:45)
[2020-05-25] MEDS ORDERED: cefTRIAXone 1GM/50ML D5W 50 ML IV ONE (11:45)
[2020-05-25] MEDS ORDERED: ALUM & MAG HYDROX-SIMETH LIQ(MAALOX) 30 ML PO PRN (11:45)
[2020-05-25] MEDS ORDERED: LORazepam 0.5 MG TAB PO PRN (11:45)
[2020-05-25] MEDS ORDERED: ONDANSETRON HCL 4 MG/2 ML VIAL IV PRN (11:45)
[2020-05-25] MEDS ORDERED: DOCUSATE SOD 100 MG CAP PO PRN (11:45)
[2020-05-25] MEDS ORDERED: ENOXAPARIN SOD 40 MG/0.4 ML SYRINGE SC ONE (12:00)
[2020-05-25] MEDS ORDERED: IOHEXOL 350 MG/ML 100ML IJ ONE (12:05)
[2020-05-25] MEDS: SODIUM CHLORIDE 0.9% 1,000 ML IV SCH (12:28)
[2020-05-25] MEDS ORDERED: CLINDAMYCIN 600MG IV 50 ML IV ONE (13:00)
[2020-05-25 13:08] VITALS: BP 124/91
[2020-05-25] MEDS: IPRATROPIUM BROM 0.5 MG/2.5ML INH SOL NEB SCH ×3 (14:00→21:46)
[2020-05-25 14:02] LABS: Amphetamine Screen, Urine POSITIVE (NEGATIVE); Barbiturate Scree,Urine NEGATIVE (NEGATIVE); Benzodiazephine Screen, Urine NEGATIVE (NEGATIVE); Cannabinoid Screen, Urine NEGATIVE (NEGATIVE); Cocaine Screen, Urine NEGATIVE (NEGATIVE); Opiate Scree,Urine NEGATIVE (NEGATIVE)
[2020-05-25 14:11] LABS: Phencyclidine Screen, Urine NEGATIVE (NEGATIVE)
[2020-05-25] MEDS: CLINDAMYCIN 600MG IV 50 ML IV SCH ×2 (16:00→21:37)
[2020-05-25 17:00] VITALS: BP 107/59
[2020-05-25] MEDS: FUROSEMIDE 40 MG/4 ML VIAL IV SCH (18:26)
--- NOTE | 2020-05-25 19:00 | NUR ---
Opening Shift Note Assumed care of patient, ASLEEP AND EASILY AROUSABLE. No S/S of distress/SOB or pain. Instructed on POC and to call for assist PRN, will continue to monitor for changes Q1hr and PRN.
[2020-05-25] MEDS: MORPHINE SULF INJ 2 MG/ML SYRINGE 1ML IV PRN (20:12)
[2020-05-25] MEDS: SACUBITRIL-VALSARTAN 24mg/26mg TAB PO SCH (21:37)
[2020-05-25] MEDS: CARVEDILOL 3.125 MG TAB PO SCH (21:37)
[2020-05-25 23:56] VITALS: BP 107/59
[2020-05-26] MEDS: IPRATROPIUM BROM 0.5 MG/2.5ML INH SOL NEB SCH ×6 (01:57→21:43)
[2020-05-26] MEDS: ALBUTEROL SULF 2.5 MG/0.5ML(0.5%) NEB SOLN NEB PRN ×3 (01:57→11:38)
[2020-05-26] MEDS: MORPHINE SULF INJ 2 MG/ML SYRINGE 1ML IV PRN (04:42)
[2020-05-26 05:35] VITALS: BP 96/67
[2020-05-26] MEDS: CLINDAMYCIN 600MG IV 50 ML IV SCH ×3 (05:49→22:12)
[2020-05-26] MEDS: LEVOTHYROXINE SODIUM 25 MCG TAB PO SCH (05:49)
[2020-05-26] MEDS: FUROSEMIDE 40 MG/4 ML VIAL IV SCH ×3 (05:50→18:00)
--- NOTE | 2020-05-26 05:54 | NUR ---
HARISH HELD B/P LOW
--- NOTE | 2020-05-26 08:00 | NUR ---
PT NOTES PT FOUND IN BED, ASLEEP BUT AROUSABLE. NO DISTRESS NOTED.
[2020-05-26 08:40] LABS: Calcium 8.5 mg/dL (8.5-10.1); Potassium 3.9 mmol/L (3.5-5.1)
[2020-05-26 08:43] LABS: BUN/Creatinine Ratio 14.8
[2020-05-26 08:45] LABS: Bilirubin, Total 4.3 mg/dL (0.2-1.0); Total Protein 6.6 g/dL (6.4-8.2)
[2020-05-26] MEDS: ASPirin-EC 81 mg tab PO SCH (08:46)
[2020-05-26] MEDS: PANTOPRAZOLE 40 MG TAB PO SCH (08:46)
[2020-05-26] MEDS: ENOXAPARIN SOD 40 MG/0.4 ML SYRINGE SC SCH (08:47)
[2020-05-26] MEDS: NICOTINE 21MG/24 HR TOPICAL PATCH TD SCH (08:47)
[2020-05-26] MEDS: POTASSIUM CHL 20 Meq TABLET PO SCH (08:47)
[2020-05-26] MEDS: cefTRIAXone 1GM/50ML D5W 50 ML IV SCH (08:48)
[2020-05-26] MEDS: SODIUM CHLORIDE 0.9% 1,000 ML IV SCH ×2 (08:53→21:20)
[2020-05-26 09:00] VITALS: BP 98/65
--- NOTE | 2020-05-26 09:20 | NUR ---
0600 LASIX GIVEN- BP 98/65 ABDOMINAL EDEMA NOTE, ALONG WITH LOWER EXTREMITY EDEMA ,INCLUDING SCROTUM. PT COMPLAINS OF TIGHTNESS ON EDEMATOUS AREA OF HIS BODY. LUNG SOUNDS CLEAR.
[2020-05-26] MEDS: SACUBITRIL-VALSARTAN 24mg/26mg TAB PO SCH ×2 (10:00→22:12)
[2020-05-26] MEDS: CARVEDILOL 3.125 MG TAB PO SCH ×2 (10:00→22:00)
[2020-05-26] MEDS ORDERED: LISINOPRIL 5 MG TAB PO SCH (10:00)
[2020-05-26] MEDS: Ensure HIGH Protein Chocolate 8oz Bottle PO SCH ×2 (12:00→18:05)
[2020-05-26 13:00] VITALS: BP 104/65
--- NOTE | 2020-05-26 14:00 | NUR ---
Respiratory note: PT PT WANTED TO TAKE 1400 MEDNEB. PUT TX IN NEBULIZER AND STARTED BUT THEN PT REFUSED. PT INFORMED TO HAVE RT PAGED IF BECOMES SOB.
[2020-05-26 16:54] VITALS: BP 106/75
--- NOTE | 2020-05-26 17:52 | NUR ---
Respiratory note: PT REFUSED MED NEB TX AT THIS TIME. PT IN NO RESPIRATORY DISTRESS. WILL RETURN AT NEXT SCHEDULED MED NEB TX TIME.
[2020-05-26] MEDS: HYDROcodone-ACET 5/325MG TAB PO PRN (22:19)
[2020-05-27] MEDS: IPRATROPIUM BROM 0.5 MG/2.5ML INH SOL NEB SCH ×6 (01:58→23:00)
--- NOTE | 2020-05-27 02:00 | NUR ---
Respiratory note: PT REFUSED SCHEDULED MED NEB TX AT THIS TIME. NO RESPIRATORY DISTRESS NOTED, WILL CONTINUE TO MONITOR.
[2020-05-27 05:00] VITALS: BP 91/66
[2020-05-27] MEDS: FUROSEMIDE 40 MG/4 ML VIAL IV SCH ×2 (05:38→17:31)
[2020-05-27] MEDS: HYDROcodone-ACET 5/325MG TAB PO PRN ×2 (05:39→19:53)
[2020-05-27] MEDS: LEVOTHYROXINE SODIUM 25 MCG TAB PO SCH (05:39)
[2020-05-27] MEDS: CLINDAMYCIN 600MG IV 50 ML IV SCH (05:41)
--- NOTE | 2020-05-27 05:52 | NUR ---
Respiratory note: SCHEDULED 0600 MEDNEB TX NOT GIVEN, PT SAYS HE DOESN'T WANT ONE AT THIS TIME. HR 105, RR 20, SPO2 98% ON ROOM AIR. BREATH SOUNDS CLEAR/DIM. PT SITTING UP IN CHAIR, NO S/S OF RESPIRATORY DISTRESS. WILL RETURN FOR NEXT SCHEDULED TX.
[2020-05-27 06:06] LABS: Basophils # (auto) 0.1 10 ^3/uL (0-0.2); Basophils % (auto) 3.5 % (0.0-2.0); Eosinophils # (auto) 0 10 ^3/uL (0-0.8); Eosinophils % (auto) 1.2 % (0.0-7.0); Hematocrit 37.3 % (41.0-53.0); Hemoglobin 12.4 g/dL (13.5-17.5); Lymphocytes # (auto) 0.8 10 ^3/uL (0.4-5.4); Lymphocytes % (auto) 21.8 % (10.0-50.0); Mean Corpuscular Hemoglobin 30.3 pg (28.0-32.0); Mean Corpuscular Hgb Conc. 33.2 g/dL (32.0-36.0); Mean Corpuscular Volume 91.2 fL (80.0-100.0); Monocytes # (auto) 0.2 10 ^3/uL (0-1.3); Monocytes % (auto) 4.7 % (0.0-12.0); Neutrophils # (auto) 2.6 10 ^3/uL (1.6-8.6); Neutrophils % (auto) 68.8 % (37.0-80.0); Nucleated Red Blood Cells % 0.3 %; Platelet Count (auto) 296 10^3/uL (140-450); Red Blood Cells 4.09 10^6/uL (4.5-5.90); Red Cell Distribution Width 18.7 % (11.8-14.3); White Blood Cell 3.8 10^3/uL (4.4-10.8)
[2020-05-27 06:24] LABS: Anion Gap 7 (5-15); Blood Urea Nitrogen 25 mg/dL (7-18); Calcium 8.3 mg/dL (8.5-10.1); Carbon Dioxide 25 mmol/L (21-32); Chloride 97 mmol/L (98-107); Glucose 80 mg/dL (74-106); Potassium 3.9 mmol/L (3.5-5.1); Sodium 129 mmol/L (136-145)
[2020-05-27 06:33] LABS: BUN/Creatinine Ratio 20.2; GFR African American 85 mL/min; GFR Non-African American 70 mL/min
--- NOTE | 2020-05-27 07:45 | NUR ---
Opening Shift Note Assumed care of patient, awake and alert. No S/S of distress/SOB or pain. Bed in lowest/locked position, bed rails up x2, call light within reach. Instructed on POC and to call for assist PRN, Will continue to monitor for changes Q1hr and PRN.
[2020-05-27] MEDS: cefTRIAXone 1GM/50ML D5W 50 ML IV SCH (09:00)
[2020-05-27] MEDS: Ensure HIGH Protein Chocolate 8oz Bottle PO SCH ×3 (09:00→17:54)
[2020-05-27] MEDS: SACUBITRIL-VALSARTAN 24mg/26mg TAB PO SCH ×2 (09:01→22:19)
[2020-05-27] MEDS: POTASSIUM CHL 20 Meq TABLET PO SCH (09:01)
[2020-05-27] MEDS: PANTOPRAZOLE 40 MG TAB PO SCH (09:01)
[2020-05-27] MEDS: ASPirin-EC 81 mg tab PO SCH (09:01)
[2020-05-27] MEDS: ENOXAPARIN SOD 40 MG/0.4 ML SYRINGE SC SCH (09:01)
[2020-05-27] MEDS: CARVEDILOL 3.125 MG TAB PO SCH ×2 (09:02→22:19)
[2020-05-27] MEDS: NICOTINE 21MG/24 HR TOPICAL PATCH TD SCH (09:15)
[2020-05-27 09:16] VITALS: BP 118/77
--- NOTE | 2020-05-27 09:50 | NUR ---
MD ROUNDS DR GOMEZ AT BEDSIDE DISCUSSING POC WITH PATIENT. NEW ORDERS RECEIVED/WILL CARRY OUT. WILL CONTINUE TO MONITOR
[2020-05-27] MEDS: ALBUTEROL SULF 2.5 MG/0.5ML(0.5%) NEB SOLN NEB PRN (09:58)
[2020-05-27] MEDS ORDERED: PHYTONADIONE(VitK) ORAL Susp 10mg/10ml(1mg/ml) PO ONE (10:00)
[2020-05-27] MEDS ORDERED: SPIRONOLACTONE 25 MG TAB PO ONE (10:00)
--- NOTE | 2020-05-27 11:50 | NUR ---
RADIOLOGY PATIENT BEING TRANSPORTED TO RADIOLOGY FOR THORACENTESIS. PANCHITO, FIELD SERVICER, AND PRESTRESSED CONCRETE LABORER TRANSPORTING PATIENT. NO S/S OF DISTRESS, SOB, PAIN NOTED AT TIME OF DEPARTURE
--- NOTE | 2020-05-27 12:20 | NUR ---
THORACENTESIS DONE BY DR GIANG IN ULTRASOUND. VSS 114/72-70-20-92%. PT TOLERATED WELL. 1400 ML OF CHANTEL FLUID REMOVED AND SENT TO LAB
--- NOTE | 2020-05-27 12:50 | NUR ---
ON UNIT PATIENT RETURNED FROM RADIOLOGY. DRESSING TO RIGHT MEDIAL BACK, C/D/I. VITAL SIGNS 97.9 TEMP, 110 HEART RATE, 18 RESPIRATIONS, 98% O2 ROOM AIR. 96/68 B/P. NO S/S OF DISTRESS, SOB, NO C/O PAIN. WILL CONTINUE TO MONITOR
[2020-05-27 13:00] VITALS: BP 96/68
[2020-05-27] MEDS: SODIUM CHLORIDE 0.9% 1,000 ML IV SCH (13:28)
--- NOTE | 2020-05-27 13:54 | NUR ---
Respiratory note: PT REFUSED SCHEDULED 1400 MEDNEB TX. DENIES SOB. HR 106, RR 20, SPO2 98% ON ROOM AIR. BREATH SOUNDS CLEAR. PT SITTING UP IN CHAIR, NO S/S OF DISTRESS. ADVISED PT TO CALL FOR RT IF HE CHANGES HIS MIND.
[2020-05-27] MEDS ORDERED: levoFLOXacin 750MG 150 ML IV ONE (14:00)
[2020-05-27 17:00] VITALS: BP 89/57
[2020-05-27] MEDS: SPIRONOLACTONE 25 MG TAB PO SCH (17:32)
--- NOTE | 2020-05-27 18:25 | NUR ---
Respiratory note: PT SEEN FOR SCHEDULED MED NEB TX AT 1825. PT IS REFUSING AT THIS TIME STATING HE WANTS TO SKIP IT. PT DENIES ANY RESPIRATORY DISTRESS. HR 92 RR 18 SP02 98% ON ROOM AIR. PT AWARE TO CALL FOR RT IF HE CHANGES HIS MIND.
--- NOTE | 2020-05-27 19:30 | NUR ---
Opening Shift Note Assumed care of patient, awake and alert. No S/S of distress/SOB or pain. Instructed on POC and to call for assist PRN, will continue to monitor for changes Q1hr and PRN.
[2020-05-27 22:00] VITALS: BP 92/66
--- NOTE | 2020-05-27 23:00 | NUR ---
Respiratory note: PT SEEN FOR SCHEDULED MED NEB TX AT 2300 PT IS REFUSING AT THIS TIME STATING HE WANTS TO SKIP IT. PT DENIES ANY RESPIRATORY DISTRESS. HR 101 RR 18 SP02 97% ON ROOM AIR. PT AWARE TO CALL FOR RT IF HE CHANGES HIS MIND.
[2020-05-28] MEDS: IPRATROPIUM BROM 0.5 MG/2.5ML INH SOL NEB SCH ×5 (02:00→18:11)
--- NOTE | 2020-05-28 02:00 | NUR ---
Respiratory note: PT SEEN FOR SCHEDULED MED NEB TX. PT REFUSED HIS TX AGAIN AT THIS TIME STATING HE WANTS TO SKIP IT. NO DISTRESS NOTED. HR 95 RR 18 SP02 98% ON ROOM AIR.
[2020-05-28 05:17] VITALS: BP 97/58
[2020-05-28] MEDS: ALBUTEROL SULF 2.5 MG/0.5ML(0.5%) NEB SOLN NEB PRN ×2 (06:06→18:11)
[2020-05-28] MEDS: SPIRONOLACTONE 25 MG TAB PO SCH ×2 (06:09→17:09)
[2020-05-28] MEDS: FUROSEMIDE 40 MG/4 ML VIAL IV SCH ×2 (06:09→17:10)
[2020-05-28] MEDS: SODIUM CHLORIDE 0.9% 1,000 ML IV SCH (06:34)
[2020-05-28] MEDS: LEVOTHYROXINE SODIUM 25 MCG TAB PO SCH (06:34)
[2020-05-28 07:30] LABS: Basophils # (auto) 0 10 ^3/uL (0-0.2); Basophils % (auto) 0.5 % (0.0-2.0); Eosinophils # (auto) 0 10 ^3/uL (0-0.8); Eosinophils % (auto) 1.1 % (0.0-7.0); Hematocrit 36.2 % (41.0-53.0); Lymphocytes # (auto) 0.8 10 ^3/uL (0.4-5.4); Lymphocytes % (auto) 18.3 % (10.0-50.0); Mean Corpuscular Hemoglobin 30.1 pg (28.0-32.0); Mean Corpuscular Volume 91.1 fL (80.0-100.0); Monocytes # (auto) 0.3 10 ^3/uL (0-1.3); Monocytes % (auto) 7.6 % (0.0-12.0); Neutrophils # (auto) 3.1 10 ^3/uL (1.6-8.6); Neutrophils % (auto) 72.5 % (37.0-80.0); Nucleated Red Blood Cells % 0.2 %; Platelet Count (auto) 278 10^3/uL (140-450); Red Blood Cells 3.97 10^6/uL (4.5-5.90); Red Cell Distribution Width 18.4 % (11.8-14.3); White Blood Cell 4.3 10^3/uL (4.4-10.8)
[2020-05-28 07:50] LABS: Calcium 8.6 mg/dL (8.5-10.1); Potassium 4.3 mmol/L (3.5-5.1)
[2020-05-28 07:55] LABS: INR 1.3 (0.9-1.15)
[2020-05-28 09:00] VITALS: BP 93/67
[2020-05-28] MEDS: Ensure HIGH Protein Chocolate 8oz Bottle PO SCH ×3 (09:20→18:03)
[2020-05-28] MEDS: POTASSIUM CHL 20 Meq TABLET PO SCH (09:36)
[2020-05-28] MEDS: PANTOPRAZOLE 40 MG TAB PO SCH (09:36)
[2020-05-28] MEDS: ASPirin-EC 81 mg tab PO SCH (09:38)
[2020-05-28] MEDS: CARVEDILOL 3.125 MG TAB PO SCH ×2 (09:40→21:03)
[2020-05-28] MEDS: ENOXAPARIN SOD 40 MG/0.4 ML SYRINGE SC SCH (09:40)
[2020-05-28] MEDS: SACUBITRIL-VALSARTAN 24mg/26mg TAB PO SCH ×2 (09:40→21:04)
[2020-05-28] MEDS: NICOTINE 21MG/24 HR TOPICAL PATCH TD SCH (09:42)
--- NOTE | 2020-05-28 09:49 | NUR ---
Respiratory note: PT SEEN FOR SCHEDULED MED NEB TX. PT REFUSED MEDNEB AT THIS TIME. NO RESPIRATORY DISTRESS NOTED. RN AT BEDSIDE.
[2020-05-28] MEDS ORDERED: levoFLOXacin 750MG 150 ML IV SCH (10:00)
--- NOTE | 2020-05-28 10:10 | NUR ---
MD ROUNDS DR Samson SCHILLING AT BEDSIDE. NO NEW ORDERS AT THIS TIME. WILL CONTINUE TO MONITOR
--- NOTE | 2020-05-28 11:58 | NUR ---
Nutrition Assessment Notes Please refer to link for full assessment notes. Est Energy needs: 7222-1803 kcals (17-20 kcal/kgBW) Est Protein needs: 78-98 gms/day (0.8-1.0 gm/kgBW) Will continue to monitor and reassess prn. Addendum: 05/28/20 at [address] Amended: Links added.
[2020-05-28] MEDS ORDERED: ALBUMIN 25% 100 ML IV ONE (12:15)
[2020-05-28 13:00] VITALS: BP 86/60
--- NOTE | 2020-05-28 14:16 | NUR ---
Respiratory note: PT SEEN FOR SCHEDULED MED NEB TX. PT REFUSED MEDNEB AT THIS TIME. NO RESPIRATORY DISTRESS NOTED.
[2020-05-28 16:47] VITALS: BP 87/54
[2020-05-28] MEDS: ACETAMINOPHEN 325 MG TAB PO PRN (21:03)
--- NOTE | 2020-05-28 21:29 | NUR ---
SPOKE WITH DR. SCHILLING REGARDING BLOOD PRESSURE. PATIENT HAS BP OF 93/57 AND IS ASYMPTOMATIC. BP NOTED TO BE LOW THROUGHOUT DAY, PER ELIN CROW, AND HARISH.
[2020-05-28 21:52] VITALS: BP 93/57
--- NOTE | 2020-05-28 23:23 | NUR ---
Respiratory note: PT SEEN FOR SCHEDULED MED NEB TX AT 2323. PT REFUSED HIS TX AT THIS TIME STATING THAT HE WILL WAIT UNTIL THE NEXT ONE. NO RESPIRATORY DISTRESS NOTED. SP02 98% ON ROOM AIR. PT AWARE TO CALL FOR RT IF ANY DISTRESS OCCURS.
[2020-05-29] MEDS: IPRATROPIUM BROM 0.5 MG/2.5ML INH SOL NEB SCH ×4 (02:00→10:00)
--- NOTE | 2020-05-29 02:00 | NUR ---
Respiratory note: PT SEEN FOR SCHEDULED MED NEB TX AT 0200. PT REFUSED HIS TX AT THIS TIME STATING HE WANTS TO SLEEP. NO DISTRESS NOTED. SP02 99% ON ROOM AIR.
[2020-05-29 05:00] VITALS: BP 94/55
[2020-05-29] MEDS: FUROSEMIDE 40 MG/4 ML VIAL IV SCH ×2 (05:53→18:00)
[2020-05-29] MEDS: SPIRONOLACTONE 25 MG TAB PO SCH (05:54)
[2020-05-29] MEDS: LEVOTHYROXINE SODIUM 25 MCG TAB PO SCH (06:10)
--- NOTE | 2020-05-29 06:36 | NUR ---
Respiratory note: PT REFUSED SCHEDULE [place] TX AT THIS TIME. NO SOB OR DISTRESS NOTED. WILL CONTINUE TO MONITOR PT.
[2020-05-29 07:23] LABS: Potassium 5.1 mmol/L (3.5-5.1)
[2020-05-29 07:44] LABS: Albumin 2.8 g/dL (3.4-5.0); Calcium 8.7 mg/dL (8.5-10.1); Total Protein 6.2 g/dL (6.4-8.2)
[2020-05-29 08:00] VITALS: BP 89/68
[2020-05-29] MEDS: Ensure HIGH Protein Chocolate 8oz Bottle PO SCH ×3 (08:00→18:32)
--- NOTE | 2020-05-29 08:00 | NUR ---
Opening Shift Note Assumed care of patient, sleeping upon entering the room. No S/S of distress/SOB, patient complains of pain 10/10 in his lower back, neck and legs. Patient has bruising and swelling on his left arm. Legs are both swollen with erythema. Instructed on POC and to call for assist PRN. Patient verbalized understanding. Bed is in lowest position and the call light is within reach of the patient. Will continue to monitor for changes Q1hr and PRN.
[2020-05-29 09:00] VITALS: BP 89/68
[2020-05-29] MEDS: PANTOPRAZOLE 40 MG TAB PO SCH (09:34)
[2020-05-29] MEDS: NICOTINE 21MG/24 HR TOPICAL PATCH TD SCH (09:34)
[2020-05-29] MEDS: HYDROcodone-ACET 5/325MG TAB PO PRN ×2 (09:34→21:29)
[2020-05-29] MEDS: levoFLOXacin 500 MG TAB PO SCH (09:34)
[2020-05-29] MEDS: ASPirin-EC 81 mg tab PO SCH (09:34)
[2020-05-29] MEDS: ENOXAPARIN SOD 40 MG/0.4 ML SYRINGE SC SCH (09:36)
[2020-05-29] MEDS: SACUBITRIL-VALSARTAN 24mg/26mg TAB PO SCH (09:39)
[2020-05-29] MEDS: POTASSIUM CHL 20 Meq TABLET PO SCH (09:39)
[2020-05-29] MEDS: CARVEDILOL 3.125 MG TAB PO SCH (09:39)
--- NOTE | 2020-05-29 09:40 | NUR ---
Patient carrying out ADL's independently Patient requested hygiene supplies and is up and out of bed for a shower.
--- NOTE | 2020-05-29 10:00 | NUR ---
Respiratory note: PT REFUSED SCHEDULE [place] TX AT THIS TIME. HR 97, RR 18, POX 100% ON RA. NO SOB OR DISTRESS NOTED. WILL CONTINUE TO MONITOR PT.
[2020-05-29 13:00] VITALS: BP 109/59
--- NOTE | 2020-05-29 13:00 | NUR ---
IV insertion IV access obtained, via clean sterile technique by inserting 20 gauge catheter at 1300 after 2 attempts in the right forearm. IV secured properly. No trauma to site. Patient tolerated procedure well.
[2020-05-29] MEDS ORDERED: IPRATROPIUM BROM 0.5 MG/2.5ML INH SOL NEB PRN (14:00)
[2020-05-29] MEDS: ALBUMIN 25% 100 ML IV SCH ×2 (15:15→21:28)
--- NOTE | 2020-05-29 15:27 | NUR ---
assessment Patient is a 35 year old male who is alert and oriented. Prior to admission patient lived home with friends and was independent. Patient informed me he is able to care for his own ADLs. Per patient he will return home to his prior living arrangements post discharge and family will transport him home. Patient has no need for DME. Patient does not want to talk about him being positive for meth. Patient has refused resources at this time. Patient informed me he does not know the name of his PCP. I will continue to monitor and follow up as appropriate for any post discharge needs. I informed patient he has a right to speak to a social work msw regarding all care. I informed patient he has a right to participate in any and all discharge planning. Patient does not have a POA and advanced directive. I have offered patient information on POA and advanced directives. I informed the patient the advantages and benefits of having an Advanced Directive. Patient verbalized understanding and agreed to discharge plan. Addendum: 05/29/20 at 1529 by Lorena LEONARD Amended: Links added.
[2020-05-29] MEDS: DOBUTamine 1000MCG/ML 250 ML IV SCH ×3 (15:32→21:27)
[2020-05-29 17:00] VITALS: BP 96/44
[2020-05-29] MEDS: ALBUTEROL SULF 2.5 MG/0.5ML(0.5%) NEB SOLN NEB PRN (18:52)
[2020-05-29] MEDS: MAGNESIUM OXIDE 400 MG TAB PO SCH (21:28)
[2020-05-29] MEDS: ACETAMINOPHEN 325 MG TAB PO PRN (21:29)
[2020-05-29 22:00] VITALS: BP 94/44
--- NOTE | 2020-05-30 | NUR ---
pt complaining of sob and that the edema from his lower extremity is progressing upward to neck and face and feel like something is covering his eyes. additionally noted at this time is the left forearm iv is infiltrated. pause infusion at this time . hospitalist page at this time
--- NOTE | 2020-05-30 00:40 | NUR ---
IV removal - IV site swollen IV DC'd with sterile technique, catheter fully intact. Pressure dressing applied to site. Patient tolerated procedure well. Right arm has been elevated. Pulses present and no redness. Patient instructed to keep arm elevated. Will continue to monitor. Addendum: 05/31/20 at 0108 by ANGI GREGORY RN RN Wrong time: Should be 05/30/20 at 2340
[2020-05-30] MEDS ORDERED: methylPREDNISolone SOD SUCC 125 MG/2 ML VL IV ONE ×2 (00:45→10:30)
[2020-05-30] MEDS ORDERED: ACETAMINOPHEN 325 MG TAB PO ONE (00:45)
[2020-05-30] MEDS ORDERED: diphenhdrAMINE HCL 25 MG CAP PO ONE (00:45)
--- NOTE | 2020-05-30 00:50 | NUR ---
IV insertion IV access obtained, via clean sterile technique by inserting 22 gauge catheter at left hand after 1 attempt. IV secured properly. No trauma to site. Patient tolerated procedure well. Addendum: 05/31/20 at 0109 by ANGI GREGORY RN RN Wrong time: Should be 05/31/20 at 0030
[2020-05-30] MEDS: DOBUTamine 1000MCG/ML 250 ML IV SCH ×3 (02:51→11:25)
--- NOTE | 2020-05-30 04:06 | NUR ---
hospitalist srinivasa hospitalist annabelle returned call, updated on patient status and reason for call, new orders received and read back and verify . Continue care. Addendum: 05/30/20 at 0536 by MATTIE DUFF RN this is for 0030 05/30/20
--- NOTE | 2020-05-30 04:18 | NUR ---
making rounds and pt is in the shower. Told pt previously he can not take a shower until there a order for one. pt is noncompliant
[2020-05-30 05:00] VITALS: BP 103/63
[2020-05-30 05:51] LABS: BUN/Creatinine Ratio 28.6; Calcium 8.3 mg/dL (8.5-10.1); Potassium 4.9 mmol/L (3.5-5.1)
[2020-05-30] MEDS: FUROSEMIDE 40 MG/4 ML VIAL IV SCH (06:00)
[2020-05-30] MEDS: LEVOTHYROXINE SODIUM 25 MCG TAB PO SCH (06:03)
--- NOTE | 2020-05-30 06:30 | NUR ---
hospitalist Called/paged hospitalist called re: iv infiltrated and dobutamine extravasated protocol . Waiting for call back. Continue care.
--- NOTE | 2020-05-30 06:40 | NUR ---
COLOR PRINTER OPERATOR UZMA returned call, updated on patient status and reason for call, new orders received and read back and verify . Continue care.
[2020-05-30] MEDS ORDERED: NITROGLYCERIN 2% OINT 1GM PKG TD ONE (07:00)
[2020-05-30] MEDS ORDERED: PHENTOLAMINE MESYLATE 5 MG INJ VIAL SUBCUT ONE (07:00)
--- NOTE | 2020-05-30 07:07 | NUR ---
Per Pharmacist Phentolamine medication is not available. Will apply Nitroglycerine ointment to affected area.Advised to repeat after 8H if symptom not subsided.
--- NOTE | 2020-05-30 07:38 | NUR ---
end of shift note endorse pt care to day shift RN . pt a0x4 , no s/s of distress or sob
--- NOTE | 2020-05-30 07:45 | NUR ---
Patient complained of feeling same edema to face, per pharmacy stop dobutamine for now. Paged hospitalist carbon paper machine operator.
--- NOTE | 2020-05-30 07:48 | NUR ---
no SOB noted, lungs clear, patient has no issues swallowing just feels eyes are puffy.
[2020-05-30] MEDS: Ensure HIGH Protein Chocolate 8oz Bottle PO SCH ×3 (08:00→18:00)
[2020-05-30 09:00] VITALS: BP 119/53
[2020-05-30] MEDS: PANTOPRAZOLE 40 MG TAB PO SCH (10:13)
[2020-05-30] MEDS: MAGNESIUM OXIDE 400 MG TAB PO SCH ×2 (10:13→21:48)
[2020-05-30] MEDS: levoFLOXacin 500 MG TAB PO SCH (10:13)
[2020-05-30] MEDS: ENOXAPARIN SOD 40 MG/0.4 ML SYRINGE SC SCH (10:13)
[2020-05-30] MEDS: ASPirin-EC 81 mg tab PO SCH (10:13)
[2020-05-30] MEDS: NICOTINE 21MG/24 HR TOPICAL PATCH TD SCH (10:14)
[2020-05-30] MEDS: FUROSEMIDE INJECTION 100 MG in D5W 5% 100 ML IV SCH ×2 (12:15→21:05)
[2020-05-30 13:00] VITALS: BP 115/69
[2020-05-30 13:55] VITALS: BP 119/53
[2020-05-30 16:56] VITALS: BP 117/64
--- NOTE | 2020-05-30 19:01 | NUR ---
PT ASSESSED FOR PRN MED NEB TX. SPO2 97% ON RA, HR 114. PT DENIES ANY RESPIRATORY DISTRESS. NO TX INDICATED. WILL CONTINUE TO MONITOR PT.
--- NOTE | 2020-05-30 19:15 | NUR ---
Opening Shift Note Patient is AOx4 w/ HOB at 30 degrees. Patient has no s/s of distress or SOB. No complaints of pain or discomfort. Patient bed locked in lowest position and call light is within reach. Discussed POC w/ patient and patient verbalized understanding. Will continue to monitor.
[2020-05-30 22:00] VITALS: BP 103/67
--- NOTE | 2020-05-30 23:40 | NUR ---
Patient Given Warm Compress Patient given warm compress for right arm to decrease infiltration and told to elevate right arm until swelling is decreased.
--- NOTE | 2020-05-30 23:40 | NUR ---
IV removal - IV site swollen IV DC'd with sterile technique, catheter fully intact. Pressure dressing applied to site. Patient tolerated procedure well. Right arm has been elevated. Pulses present and no redness. Patient instructed to keep arm elevated. Will continue to monitor.
[2020-05-31] VITALS (7 sets, daily range): BP systolic 113–124; BP diastolic 61–78
--- NOTE | 2020-05-31 00:30 | NUR ---
IV insertion IV access obtained, via clean sterile technique by inserting 22 gauge catheter at left hand after 1 attempt. IV secured properly. No trauma to site. Patient tolerated procedure well.
--- NOTE | 2020-05-31 03:05 | NUR ---
Re-Checked right arm Right arm has decreased in size if swelling. No complaints pain or SOB, and no s/s if distress. Will continue to monitor.
[2020-05-31] MEDS: FUROSEMIDE INJECTION 100 MG in D5W 5% 100 ML IV SCH ×2 (06:27→16:49)
[2020-05-31] MEDS: LEVOTHYROXINE SODIUM 25 MCG TAB PO SCH (06:34)
--- NOTE | 2020-05-31 07:30 | NUR ---
Opening Shift Note Assumed care of patient, awake and alert. Patient has visible swelling in face and lower legs. Patient declines any S/S of distress/SOB or pain. Instructed on POC and to call for assist PRN, will continue to monitor for changes Q1hr and PRN. Bed is locked and in lowest position. Call light within reach.
--- NOTE | 2020-05-31 07:38 | NUR ---
Respiratory note: ASSESSED PT FOR PRN MEDNEB TX. HR 120, RR 20, SPO2 98% ON ROOM AIR. BREATH SOUNDS CLEAR T/O. NO S/S OF DISTRESS. MEDNEB TX NOT INDICATED AT THIS TIME. PT AWARE TO CALL FOR RT IF NEEDED.
--- NOTE | 2020-05-31 09:30 | NUR ---
PATIENT WILL BE DISCHARGED HOME WITH HOSPICE FOR COMFORT CARE DUE TO DIAGNOSIS. PER NOVELTY WORKER POC WAS DISCUSSED WITH PATIENT. PATIENT WILL NOTIFY PARENTS OF POC AND WILL DETERMINE IF HE WILL BE ABLE TO GO TO PARENTS HOME FOR HOSPICE CARE. WILL AWAIT IF PATIENT WAS ABLE TO GET A HOLD OF PARENTS.
[2020-05-31] MEDS: ASPirin-EC 81 mg tab PO SCH (09:32)
[2020-05-31] MEDS: PANTOPRAZOLE 40 MG TAB PO SCH (09:32)
[2020-05-31] MEDS: levoFLOXacin 500 MG TAB PO SCH (09:32)
[2020-05-31] MEDS: MAGNESIUM OXIDE 400 MG TAB PO SCH ×2 (09:32→21:36)
[2020-05-31] MEDS: Ensure HIGH Protein Chocolate 8oz Bottle PO SCH ×3 (09:33→18:18)
[2020-05-31] MEDS: ENOXAPARIN SOD 40 MG/0.4 ML SYRINGE SC SCH (09:33)
[2020-05-31] MEDS: NICOTINE 21MG/24 HR TOPICAL PATCH TD SCH (09:34)
--- NOTE | 2020-05-31 11:00 | NUR ---
PHONE CALL RECEIVED FROM PATIENTS MOTHER HUYEN [phone] REGARDING HIS POC. MOTHER INFORMED OF PLAN FOR HOSPICE AND PATIENT REQUIRES PLACEMENT. MOTHER STATED PATIENT WILL NOT BE GOING TO HER HOME DUE TO PATIENT NOT GETTING ALONG WITH STEP-DAD. MOTHER SPOKE TO PATIENT AND PATIENT REFUSED TO GO TO HER HOME. INFORMED MOTHER IF PATIENT DOES NOT HAVE A PLACE TO GO HOME WITH HOSPICE HE WILL BE PLACED IN A PRISON. MOTHER INSIST PATIENT REFUSES TO GO HOME. WILL INFORM DIRECTOR COLLEGE OF MOTHER STATEMENTS.
[2020-05-31] MEDS ORDERED: SPIRONOLACTONE 25 MG TAB PO ONE (12:15)
--- NOTE | 2020-05-31 12:43 | NUR ---
Nutrition Followup Notes Pt wt is 78.7 kg. Pt was sleeping when rounded this morning. Pt is with a Cardiac 2gNa diet, appetite is good aeb ave 95% PO intake over 5 meals per RN doc. Est Energy needs: 7274-9765 kcals (17-20 kcal/kgBW) Est Protein needs: 78-98 gms/day (0.8-1.0 gm/kgBW) Will continue to monitor and reassess prn. LABS: Gluc 112 H. Ca 8.3 L, Alb 2.8 L GI: Pt had 1 BM on 05/31 per RN doc. BS: 22 low risk. Refer to wound assessment report for full details. PES: 1) Obesity r/t energy intake in excess of energy needs aeb 125% IBW and BMI of 30.0 kg/m2 2) Altered nutrition related lab values r/t current medical condition aeb elev LFTs, hypoalbuminemia, hyperbilirubinemia Comments Will continue to monitor PO status, skin status, pertinent labs and weight trends. Will f/u in 3-5 days. 1) Continue to carefully monitor pt PO intake to meet at least 75% of meals 2) Refer pt to an RD for nutrition education upon D/C 3) Continue current plan of care
--- NOTE | 2020-05-31 17:47 | NUR ---
PATIENT HAD REQUESTED TO TAKE A SHOWER. PATIENT INFORMED A DOCTORS ORDER TO BE OFF TELE IN ORDER TO SHOWER WAS REQUIRED. PATIENT VERBALIZED UNDERSTANDING. PATIENT WAS FOUND TO BE OFF TELE AND WHEN WAS ASSESSED PATIENT WAS IN SHOWER. AWAITED PATIENT TO BE OUT OF SHOWER AND PUT BACK ON TELEMONITOR. RE-EDUCATED PATIENT ON SHOWER POLICY WHEN ON A TELEMONITOR. PATIENT VERBALIZED UNDERSTANDING. WILL CONTINUE TO MONITOR PATIENT.
[2020-05-31] MEDS: SPIRONOLACTONE 25 MG TAB PO SCH (18:18)
--- NOTE | 2020-05-31 19:15 | NUR ---
Opening Shift Note Patient is AOx4. Patient resting in bed w/ HOB at 30 degrees. No s/s of distress or SOB, and no pain noted. Patient upper thigh have +1 pitting edema and ankles are swollen with no edema present. Patient bed linen changed for comfort and cleanliness, and feet elevated to reduce swelling. Bed locked in lowest position and call light is within reach. Will continue to monitor.
[2020-06-01] MEDS: FUROSEMIDE INJECTION 100 MG in D5W 5% 100 ML IV SCH ×3 (03:12→22:42)
[2020-06-01 05:00] VITALS: BP 104/63
[2020-06-01 05:59] LABS: Basophils # (auto) 0 10 ^3/uL (0-0.2); Basophils % (auto) 0.2 % (0.0-2.0); Eosinophils # (auto) 0.1 10 ^3/uL (0-0.8); Eosinophils % (auto) 0.9 % (0.0-7.0); Hematocrit 35.8 % (41.0-53.0); Hemoglobin 11.7 g/dL (13.5-17.5); Lymphocytes # (auto) 0.9 10 ^3/uL (0.4-5.4); Lymphocytes % (auto) 11.2 % (10.0-50.0); Mean Corpuscular Hemoglobin 29.6 pg (28.0-32.0); Mean Corpuscular Hgb Conc. 32.7 g/dL (32.0-36.0); Mean Corpuscular Volume 90.7 fL (80.0-100.0); Monocytes # (auto) 0.7 10 ^3/uL (0-1.3); Monocytes % (auto) 8.8 % (0.0-12.0); Neutrophils # (auto) 6.1 10 ^3/uL (1.6-8.6); Neutrophils % (auto) 78.9 % (37.0-80.0); Platelet Count (auto) 238 10^3/uL (140-450); Red Blood Cells 3.95 10^6/uL (4.5-5.90); Red Cell Distribution Width 19.1 % (11.8-14.3); White Blood Cell 7.8 10^3/uL (4.4-10.8)
[2020-06-01 06:12] LABS: Calcium 9.1 mg/dL (8.5-10.1); Potassium 3.4 mmol/L (3.5-5.1)
[2020-06-01] MEDS: SPIRONOLACTONE 25 MG TAB PO SCH ×2 (06:28→17:33)
[2020-06-01] MEDS: LEVOTHYROXINE SODIUM 25 MCG TAB PO SCH (06:30)
--- NOTE | 2020-06-01 08:40 | NUR ---
Respiratory note: ASSESSED PT FOR PRN MEDNEB TX. HR 120, RR 20, SPO2 96% ON ROOM AIR. BREATH SOUNDS CLEAR T/O. NO S/S OF DISTRESS. MEDNEB TX NOT INDICATED AT THIS TIME. PT AWARE TO CALL FOR RT IF NEEDED.
[2020-06-01 09:00] VITALS: BP 110/83
[2020-06-01] MEDS: ENOXAPARIN SOD 40 MG/0.4 ML SYRINGE SC SCH (10:48)
[2020-06-01] MEDS: PANTOPRAZOLE 40 MG TAB PO SCH (10:53)
[2020-06-01] MEDS: levoFLOXacin 500 MG TAB PO SCH (10:53)
[2020-06-01] MEDS: MAGNESIUM OXIDE 400 MG TAB PO SCH ×2 (10:53→21:52)
[2020-06-01] MEDS: ASPirin-EC 81 mg tab PO SCH (10:54)
[2020-06-01] MEDS: NICOTINE 21MG/24 HR TOPICAL PATCH TD SCH (11:03)
[2020-06-01] MEDS: Ensure HIGH Protein Chocolate 8oz Bottle PO SCH ×3 (11:03→18:23)
[2020-06-01] MEDS ORDERED: POTASSIUM CHL 10 Meq TABLET PO ONE (11:15)
[2020-06-01 13:00] VITALS: BP 115/59
[2020-06-01 17:00] VITALS: BP 109/59
--- NOTE | 2020-06-01 19:30 | NUR ---
Opening Shift Note Assumed care of patient. Patient is awake and alert, oriented X 4, resting in bed. No S/S of respiratory distress. Patient denies pain at this time. Bed in lowest locked position, side rails X 2 up, call light is within reach. Instructed on POC and to call for assistance as needed. Will continue to monitor for changes Q1hr and PRN.
[2020-06-01 20:00] VITALS: BP 91/67
[2020-06-01 22:00] VITALS: BP 91/67
[2020-06-02 04:50] VITALS: BP 111/71
[2020-06-02] MEDS: SPIRONOLACTONE 25 MG TAB PO SCH ×2 (06:06→17:46)
[2020-06-02] MEDS: LEVOTHYROXINE SODIUM 25 MCG TAB PO SCH (06:30)
[2020-06-02 06:51] LABS: Basophils # (auto) 0 10 ^3/uL (0-0.2); Basophils % (auto) 0.6 % (0.0-2.0); Eosinophils # (auto) 0.1 10 ^3/uL (0-0.8); Eosinophils % (auto) 1.2 % (0.0-7.0); Hematocrit 38.2 % (41.0-53.0); Hemoglobin 12.7 g/dL (13.5-17.5); Lymphocytes # (auto) 0.9 10 ^3/uL (0.4-5.4); Lymphocytes % (auto) 14.6 % (10.0-50.0); Mean Corpuscular Hemoglobin 29.8 pg (28.0-32.0); Mean Corpuscular Hgb Conc. 33.2 g/dL (32.0-36.0); Mean Corpuscular Volume 89.8 fL (80.0-100.0); Monocytes # (auto) 0.7 10 ^3/uL (0-1.3); Monocytes % (auto) 11.7 % (0.0-12.0); Neutrophils # (auto) 4.6 10 ^3/uL (1.6-8.6); Neutrophils % (auto) 71.9 % (37.0-80.0); Nucleated Red Blood Cells % 0.1 %; Platelet Count (auto) 237 10^3/uL (140-450); Red Blood Cells 4.26 10^6/uL (4.5-5.90); Red Cell Distribution Width 18.6 % (11.8-14.3); White Blood Cell 6.4 10^3/uL (4.4-10.8)
[2020-06-02 07:12] LABS: Potassium 3.3 mmol/L (3.5-5.1)
[2020-06-02 07:18] LABS: BUN/Creatinine Ratio 25.7; Calcium 9.5 mg/dL (8.5-10.1)
[2020-06-02 08:39] VITALS: BP 105/69
[2020-06-02] MEDS: Ensure HIGH Protein Chocolate 8oz Bottle PO SCH ×3 (09:35→17:47)
[2020-06-02] MEDS: FUROSEMIDE INJECTION 100 MG in D5W 5% 100 ML IV SCH (09:36)
[2020-06-02] MEDS: ENOXAPARIN SOD 40 MG/0.4 ML SYRINGE SC SCH (10:41)
[2020-06-02] MEDS: NICOTINE 21MG/24 HR TOPICAL PATCH TD SCH (10:41)
[2020-06-02] MEDS: PANTOPRAZOLE 40 MG TAB PO SCH (10:42)
[2020-06-02] MEDS: MAGNESIUM OXIDE 400 MG TAB PO SCH ×2 (10:42→21:48)
[2020-06-02] MEDS: ASPirin-EC 81 mg tab PO SCH (10:42)
[2020-06-02] MEDS: levoFLOXacin 500 MG TAB PO SCH (10:42)
[2020-06-02 13:00] VITALS: BP 94/62
[2020-06-02] MEDS ORDERED: POTASSIUM EFFERVESENT TAB 25 MEQ PO ONE (14:15)
[2020-06-02 16:19] VITALS: BP 98/67
--- NOTE | 2020-06-02 19:45 | NUR ---
Opening Shift Note Assumed care of patient. Patient is awake and alert, oriented X 4. No S/S of respiratory distress. Respirations are regular and non-labored. On RA with SpO2 94%. Patient denies pain at this time. Bed in lowest locked position, side rails X 2 up, call light is within reach, monitor leads correctly placed. POC discussed and pt instructed to call for assistance as needed. Will continue to monitor for changes Q1hr and PRN.
[2020-06-02 20:00] VITALS: BP 92/66
[2020-06-02 22:00] VITALS: BP 92/66
[2020-06-03 05:00] VITALS: BP 96/56
[2020-06-03] MEDS: SPIRONOLACTONE 25 MG TAB PO SCH (06:00)
[2020-06-03] MEDS: LEVOTHYROXINE SODIUM 25 MCG TAB PO SCH (06:52)
[2020-06-03 07:17] LABS: Basophils # (auto) 0 10 ^3/uL (0-0.2); Basophils % (auto) 0.6 % (0.0-2.0); Eosinophils # (auto) 0.1 10 ^3/uL (0-0.8); Eosinophils % (auto) 1.8 % (0.0-7.0); Hematocrit 38.1 % (41.0-53.0); Hemoglobin 12.5 g/dL (13.5-17.5); Lymphocytes % (auto) 18.8 % (10.0-50.0); Mean Corpuscular Hemoglobin 29.5 pg (28.0-32.0); Mean Corpuscular Hgb Conc. 32.8 g/dL (32.0-36.0); Mean Corpuscular Volume 89.8 fL (80.0-100.0); Monocytes # (auto) 0.5 10 ^3/uL (0-1.3); Monocytes % (auto) 10.1 % (0.0-12.0); Neutrophils # (auto) 3.7 10 ^3/uL (1.6-8.6); Neutrophils % (auto) 68.7 % (37.0-80.0); Nucleated Red Blood Cells % 0.1 %; Platelet Count (auto) 235 10^3/uL (140-450); Red Blood Cells 4.24 10^6/uL (4.5-5.90); Red Cell Distribution Width 18.7 % (11.8-14.3); White Blood Cell 5.4 10^3/uL (4.4-10.8)
[2020-06-03 07:19] LABS: Potassium 3.2 mmol/L (3.5-5.1)
[2020-06-03 07:24] LABS: BUN/Creatinine Ratio 28.6; Calcium 9.4 mg/dL (8.5-10.1)
--- NOTE | 2020-06-03 07:30 | NUR ---
Opening shift note Assumed care patient in bed sleeping. No s/s of distress or SOB noted. Respirations even and unlabored on RA. Bed in lowest,locked position, call light within reach will continue care.
[2020-06-03] MEDS: Ensure HIGH Protein Chocolate 8oz Bottle PO SCH ×2 (08:00→12:00)
[2020-06-03 09:00] VITALS: BP 115/74
[2020-06-03] MEDS ORDERED: FUROSEMIDE 40 MG TAB PO SCH (10:00)
[2020-06-03] MEDS: MAGNESIUM OXIDE 400 MG TAB PO SCH (10:14)
[2020-06-03] MEDS: levoFLOXacin 500 MG TAB PO SCH (10:15)
[2020-06-03] MEDS: PANTOPRAZOLE 40 MG TAB PO SCH (10:15)
[2020-06-03] MEDS: ASPirin-EC 81 mg tab PO SCH (10:15)
[2020-06-03] MEDS: ENOXAPARIN SOD 40 MG/0.4 ML SYRINGE SC SCH (10:15)
[2020-06-03] MEDS: NICOTINE 21MG/24 HR TOPICAL PATCH TD SCH (10:17)
--- NOTE | 2020-06-03 11:00 | NUR ---
Received call from family Received call from patients mom. Unable to discuss any information with her regarding patient as no password set in the account. Patient was asked if he wanted to place a password for me to be able to share information with his family patient said no. Mom was informed that I was unable to share any information without a password.
--- NOTE | 2020-06-03 11:14 | NUR ---
Nutrition Followup Notes Pt wt is 74.8 kg. Pt was with RN when rounded this morning. Pt is with a Cardiac 2gNa diet, appetite is good aeb 100% PO intake over 6 meals per RN doc. Est Energy needs: 0864-0784 kcals (17-20 kcal/kgBW) Est Protein needs: 78-98 gms/day (0.8-1.0 gm/kgBW) Will continue to monitor and reassess prn. LABS: K 3.2 L, BUN 26 H, Alb 2.8 L GI: Pt with no BM today per RN doc. BS: 20 low risk. Refer to wound assessment report for full details. PES: 1) Obesity r/t energy intake in excess of energy needs aeb 125% IBW and BMI of 30.0 kg/m2 2) Altered nutrition related lab values r/t current medical condition aeb elev LFTs, hypoalbuminemia, hyperbilirubinemia Comments Will continue to monitor PO status, skin status, pertinent labs and weight trends. Will f/u in 3-5 days. 1) Continue to carefully monitor pt PO intake to meet at least 75% of meals 2) Refer pt to an RD for nutrition education upon D/C 3) Continue current plan of care
[2020-06-03 13:00] VITALS: BP 91/55
--- NOTE | 2020-06-03 13:22 | NUR ---
re-assessment Per ss consult please arrange for outpatient hospice evaluation. I informed patient of ss consult. Patient was willing to accept a list of hospice providers. Per patient he will call on one later if he decides he wants hospice. Patient provided with list. Addendum: 06/05/20 at 1623 by Lorena Thurman SS Amended: Links added.
[2020-06-03 13:56] VITALS: BP 91/55
--- NOTE | 2020-06-03 15:50 | NUR ---
Discharge instructions given as ordered. Encourage to follow up with PMD as instructed. Appointment made for Dr. Pryor's office, information provided to patient. All questions and concerns addressed. Patient verbalized understanding. IV removed with catheter intact, pressure dressing applied. Telemetry unit returned to ICU. Patient taken to taxi via wheelchair with all personal belongings, accompanied by staff. No distress noted at time of departure.
== END 2020-06-03 15:50 | disposition home or self-care (01) | DRG 720 ==
LOC: ER 03:14 → TELE 03:15 → TELE-CENTR 13:20
PROVIDERS: ADMIT Hospitalist; ATTEND Internal Medicine
PROC: 0W993ZZ Drainage of Right Pleural Cavity, Percutaneous Approach (ICD-10-PCS; principal; 2020-05-27)
DX: A41.9 Sepsis, unspecified organism (principal); N17.0 Acute kidney failure with tubular necrosis; I50.23 Acute on chronic systolic (congestive) heart failure; E44.0 Moderate protein-calorie malnutrition; J18.9 Pneumonia, unspecified organism; I42.7 Cardiomyopathy due to drug and external agent; E87.1 Hypo-osmolality and hyponatremia; D63.8 Anemia in other chronic diseases classified elsewhere; K70.31 Alcoholic cirrhosis of liver with ascites; E87.6 Hypokalemia; E03.9 Hypothyroidism, unspecified; F10.10 Alcohol abuse, uncomplicated; F12.90 Cannabis use, unspecified, uncomplicated; F15.10 Other stimulant abuse, uncomplicated; F17.210 Nicotine dependence, cigarettes, uncomplicated; N18.9 Chronic kidney disease, unspecified; K21.9 Gastro-esophageal reflux disease without esophagitis; M79.89 Other specified soft tissue disorders; N45.1 Epididymitis; Z79.82 Long term (current) use of aspirin; Z79.899 Other long term (current) drug therapy; Z91.19 Patient's noncompliance with other medical treatment and regimen; Z79.891 Long term (current) use of opiate analgesic; Z79.01 Long term (current) use of anticoagulants; Z79.2 Long term (current) use of antibiotics
CPT/HCPCS: 10022; 36415; 36600; 71045; 71275; 74176; 76604; 76870; 76942; 80048; 80053; 80307; 81001; 82805; 83605; 83735; 83880; 84443; 84484; 85025; 85379; 85610; 85730; 87040; 87081; 87086; 87205; 89051; 93005; 93970; 94640; 96365; 96375; G0378; J0696; J1956; J2001; J3490; J7060; P9047

== ENCOUNTER 2020-06-19 08:23 | Inpatient (IN) | payer OTHER ==
[~2020-06-19] VITALS: Ht 180.3 cm; Wt 80.7 kg
[2020-06-19] MEDS ORDERED: SODIUM CHLORIDE 0.9% 1,000 ML IV ONE (09:00)
[2020-06-19 09:12] LABS: Basophils # (auto) 0.1 10 ^3/uL (0-0.2); Basophils % (auto) 1.3 % (0.0-2.0); Eosinophils # (auto) 0 10 ^3/uL (0-0.8); Eosinophils % (auto) 0.4 % (0.0-7.0); Hematocrit 33.5 % (41.0-53.0); Lymphocytes % (auto) 20.8 % (10.0-50.0); Mean Corpuscular Hemoglobin 28.5 pg (28.0-32.0); Mean Corpuscular Hgb Conc. 32.8 g/dL (32.0-36.0); Mean Corpuscular Volume 86.9 fL (80.0-100.0); Monocytes # (auto) 0.5 10 ^3/uL (0-1.3); Monocytes % (auto) 11.1 % (0.0-12.0); Neutrophils # (auto) 3.2 10 ^3/uL (1.6-8.6); Neutrophils % (auto) 66.4 % (37.0-80.0); Nucleated Red Blood Cells % 0.1 %; Platelet Count (auto) 354 10^3/uL (140-450); Red Blood Cells 3.86 10^6/uL (4.5-5.90); Red Cell Distribution Width 19.3 % (11.8-14.3); White Blood Cell 4.9 10^3/uL (4.4-10.8)
[2020-06-19 09:25] LABS: Albumin 3.4 g/dL (3.4-5.0); Calcium 8.9 mg/dL (8.5-10.1); Magnesium 2.4 mg/dL (1.6-2.6); Potassium 3.9 mmol/L (3.5-5.1)
[2020-06-19 09:31] LABS: Bilirubin, Total 5.3 mg/dL (0.2-1.0); Total Protein 6.8 g/dL (6.4-8.2)
[2020-06-19 10:16] LABS: Urine WBC None Seen /hpf (0 - 3)
[2020-06-19] MEDS ORDERED: SODIUM CHLORIDE 0.9% 500 ML IV ONE (10:30)
[2020-06-19] MEDS ORDERED: SPIRONOLACTONE 25 MG TAB PO ONE (10:30)
[2020-06-19] MEDS ORDERED: FUROSEMIDE 40 MG/4 ML VIAL IV ONE ×2 (10:30→13:15)
[2020-06-19 10:33] LABS: Urine Bacteria NONE SEEN /hpf (None Seen); Urine Blood Negative /uL (Negative); Urine Hyaline Cast FEW /lpf (0 - 2); Urine Mucus FEW (None Seen); Urine Specific Gravity 1.016 (1.001-1.035)
[2020-06-19] MEDS ORDERED: guaiFENesin-CODEINE Liq 5 ML UD PO ONE (12:45)
[2020-06-19] MEDS ORDERED: ACETAMINOPHEN 500 MG TAB PO PRN (13:00)
[2020-06-19] MEDS ORDERED: ONDANSETRON HCL 4 MG/2 ML VIAL IV PRN (13:00)
[2020-06-19] MEDS ORDERED: NITROGLYCERIN 0.4 MG SL TAB SL PRN (13:00)
[2020-06-19] MEDS ORDERED: MORPHINE SULF INJ 2 MG/ML SYRINGE 1ML IV PRN ×2 (13:00)
[2020-06-19] MEDS ORDERED: guaiFENesin-CODEINE Liq 5 ML UD PO PRN (13:00)
[2020-06-19] MEDS ORDERED: CARVEDILOL 3.125 MG TAB PO ONE (13:15)
[2020-06-19] MEDS ORDERED: NICOTINE 21MG/24 HR TOPICAL PATCH TD ONE (13:15)
[2020-06-19] MEDS ORDERED: LEVOTHYROXINE SODIUM 25 MCG TAB PO ONE (13:15)
[2020-06-19] MEDS ORDERED: ASPirin-EC 81 mg tab PO ONE (13:15)
[2020-06-19] MEDS ORDERED: POTASSIUM CHL 20 Meq TABLET PO ONE (13:15)
[2020-06-19] MEDS ORDERED: PANTOPRAZOLE 40 MG TAB PO ONE (13:15)
[2020-06-19] MEDS ORDERED: SACUBITRIL-VALSARTAN 24mg/26mg TAB PO ONE (13:15)
[2020-06-19 14:26] LABS: Alcohol, Urine < 3.0 mg/dL (0-10); Amphetamine Screen, Urine POSITIVE (NEGATIVE); Barbiturate Scree,Urine NEGATIVE (NEGATIVE); Benzodiazephine Screen, Urine NEGATIVE (NEGATIVE); Cannabinoid Screen, Urine NEGATIVE (NEGATIVE); Cocaine Screen, Urine NEGATIVE (NEGATIVE); Opiate Scree,Urine NEGATIVE (NEGATIVE); Phencyclidine Screen, Urine NEGATIVE (NEGATIVE)
[2020-06-19 15:00] VITALS: BP 101/65
[2020-06-19] MEDS ORDERED: FUROSEMIDE 40 MG/4 ML VIAL IV SCH (18:00)
[2020-06-19] MEDS ORDERED: CARVEDILOL 3.125 MG TAB PO SCH (22:00)
[2020-06-19] MEDS ORDERED: SACUBITRIL-VALSARTAN 24mg/26mg TAB PO SCH (22:00)
[2020-06-20] MEDS ORDERED: LEVOTHYROXINE SODIUM 25 MCG TAB PO SCH (07:00)
[2020-06-20] MEDS ORDERED: NICOTINE 21MG/24 HR TOPICAL PATCH TD SCH (10:00)
[2020-06-20] MEDS ORDERED: ASPirin-EC 81 mg tab PO SCH (10:00)
[2020-06-20] MEDS ORDERED: POTASSIUM CHL 20 Meq TABLET PO SCH (10:00)
[2020-06-20] MEDS ORDERED: PANTOPRAZOLE 40 MG TAB PO SCH (10:00)
[2020-07-10] MEDS ORDERED: LEV25T PO (12:17)
[2020-07-10] MEDS ORDERED: CAR3125T PO (12:17)
[2020-07-10] MEDS ORDERED: DOXY-286 PO (12:17)
[2020-07-10] MEDS ORDERED: ASPI-378 PO (12:17)
[2020-07-10] MEDS ORDERED: SACU1TAB PO (12:17)
[2020-07-10] MEDS ORDERED: FURO1TAB31 PO (12:18)
[2020-07-10] MEDS ORDERED: POTA1TAB61 PO (12:18)
[2020-07-10] MEDS ORDERED: PANT40T PO (12:18)
[2020-07-10] MEDS ORDERED: NIC21P TOP (12:18)
[2020-07-10] MEDS ORDERED: DIGO0.12 PO (12:25)
== END 2020-06-19 15:30 | disposition left against medical advice (07) | DRG 194 ==
LOC: ER 08:23 → TELE 08:24
PROVIDERS: ADMIT Nurse Practitioner Acute Care; ATTEND Nurse Practitioner Acute Care
DX: I13.0 Hypertensive heart and chronic kidney disease with heart failure and stage 1 through stage 4 chronic kidney disease, or unspecified chronic kidney disease (principal); E03.9 Hypothyroidism, unspecified; E87.1 Hypo-osmolality and hyponatremia; F15.10 Other stimulant abuse, uncomplicated; I42.7 Cardiomyopathy due to drug and external agent; N18.31 Chronic kidney disease, stage 3a; I50.43 Acute on chronic combined systolic (congestive) and diastolic (congestive) heart failure; K21.9 Gastro-esophageal reflux disease without esophagitis; Z79.82 Long term (current) use of aspirin; Z79.899 Other long term (current) drug therapy; Z91.14 Patient's other noncompliance with medication regimen
CPT/HCPCS: 36415; 71046; 76705; 80053; 80307; 81001; 83735; 83880; 84443; 84484; 85025; 93005; 96361; 96374; G0378

== ENCOUNTER 2020-06-25 11:25 | Inpatient (IN) | payer OTHER ==
[~2020-06-25] VITALS: Ht 154.9 cm; Wt 88.4 kg
[2020-06-25 12:03] LABS: Basophils # (auto) 0 10 ^3/uL (0-0.2); Basophils % (auto) 0.6 % (0.0-2.0); Eosinophils # (auto) 0 10 ^3/uL (0-0.8); Eosinophils % (auto) 0.4 % (0.0-7.0); Hematocrit 34.5 % (41.0-53.0); Hemoglobin 11.2 g/dL (13.5-17.5); Lymphocytes # (auto) 0.7 10 ^3/uL (0.4-5.4); Lymphocytes % (auto) 11.1 % (10.0-50.0); Mean Corpuscular Hemoglobin 28.4 pg (28.0-32.0); Mean Corpuscular Hgb Conc. 32.4 g/dL (32.0-36.0); Mean Corpuscular Volume 87.7 fL (80.0-100.0); Monocytes # (auto) 0.4 10 ^3/uL (0-1.3); Neutrophils # (auto) 4.9 10 ^3/uL (1.6-8.6); Neutrophils % (auto) 80.9 % (37.0-80.0); Platelet Count (auto) 293 10^3/uL (140-450); Red Blood Cells 3.93 10^6/uL (4.5-5.90); Red Cell Distribution Width 19.7 % (11.8-14.3)
[2020-06-25 12:20] LABS: Albumin 3.1 g/dL (3.4-5.0); Calcium 8.6 mg/dL (8.5-10.1); Potassium 3.1 mmol/L (3.5-5.1)
[2020-06-25 12:23] LABS: BUN/Creatinine Ratio 15.5; Total Protein 6.6 g/dL (6.4-8.2)
[2020-06-25] MEDS ORDERED: POTASSIUM CHL 20MEQ/100ML 100 ML IV ONE (12:45)
[2020-06-25] MEDS ORDERED: FUROSEMIDE 40 MG/4 ML VIAL IV ONE (12:45)
[2020-06-25] MEDS ORDERED: ONDANSETRON HCL 4 MG/2 ML VIAL IV PRN (15:30)
[2020-06-25] MEDS ORDERED: LORazepam 0.5 MG TAB PO PRN (15:30)
[2020-06-25] MEDS ORDERED: MORPHINE SULF INJ 2 MG/ML SYRINGE 1ML IV PRN (15:30)
[2020-06-25] MEDS ORDERED: ACETAMINOPHEN 500 MG TAB PO PRN (15:30)
[2020-06-25] MEDS ORDERED: NITROGLYCERIN 0.4 MG SL TAB SL PRN (15:30)
[2020-06-25] MEDS ORDERED: POTA25TA23 PO (17:02)
[2020-06-25 17:12] LABS: Urine WBC None Seen /hpf (0 - 3)
[2020-06-25 17:35] LABS: Urine Bacteria NONE SEEN /hpf (None Seen); Urine Blood Negative /uL (Negative); Urine Specific Gravity 1.004 (1.001-1.035)
[2020-06-25 17:44] LABS: Amphetamine Screen, Urine POSITIVE (NEGATIVE); Barbiturate Scree,Urine NEGATIVE (NEGATIVE); Benzodiazephine Screen, Urine NEGATIVE (NEGATIVE); Cannabinoid Screen, Urine NEGATIVE (NEGATIVE); Cocaine Screen, Urine NEGATIVE (NEGATIVE); Phencyclidine Screen, Urine NEGATIVE (NEGATIVE)
[2020-06-25 17:50] LABS: Opiate Scree,Urine NEGATIVE (NEGATIVE)
[2020-06-25] MEDS: FUROSEMIDE 40 MG/4 ML VIAL IV SCH (18:26)
[2020-06-25 20:02] LABS: INR 1.17 (0.9-1.15)
[2020-06-25] MEDS: METOPROLOL TARTRATE 25 MG TAB PO SCH (20:59)
[2020-06-25] MEDS: ATORVASTATIN 20 MG TAB PO SCH (20:59)
[2020-06-25 21:00] VITALS: BP 107/73
[2020-06-25 22:00] VITALS: BP_SYST 122; BP_SYST 125; BP_DIAS 65; BP_DIAS 66
[2020-06-26 05:00] VITALS: BP 108/69
[2020-06-26] MEDS: FUROSEMIDE 40 MG/4 ML VIAL IV SCH ×2 (05:11→18:01)
[2020-06-26 06:49] LABS: Basophils # (auto) 0 10 ^3/uL (0-0.2); Basophils % (auto) 0.8 % (0.0-2.0); Eosinophils # (auto) 0 10 ^3/uL (0-0.8); Hematocrit 32.9 % (41.0-53.0); Hemoglobin 10.6 g/dL (13.5-17.5); Lymphocytes # (auto) 0.9 10 ^3/uL (0.4-5.4); Mean Corpuscular Hgb Conc. 32.1 g/dL (32.0-36.0); Mean Corpuscular Volume 87.2 fL (80.0-100.0); Monocytes # (auto) 0.4 10 ^3/uL (0-1.3); Neutrophils # (auto) 3.5 10 ^3/uL (1.6-8.6); Neutrophils % (auto) 71.2 % (37.0-80.0); Platelet Count (auto) 270 10^3/uL (140-450); Red Blood Cells 3.77 10^6/uL (4.5-5.90); Red Cell Distribution Width 20.2 % (11.8-14.3); White Blood Cell 4.9 10^3/uL (4.4-10.8)
[2020-06-26 07:15] LABS: Calcium 8.8 mg/dL (8.5-10.1)
[2020-06-26 07:18] LABS: BUN/Creatinine Ratio 14.5
[2020-06-26 07:56] LABS: Potassium 2.6 mmol/L (3.5-5.1)
[2020-06-26 09:05] VITALS: BP 98/71
[2020-06-26] MEDS: LISINOPRIL 10 MG TAB PO SCH (10:00)
[2020-06-26] MEDS: PANTOPRAZOLE 40 MG TAB PO SCH (10:04)
[2020-06-26] MEDS: ASPirin-EC 81 mg tab PO SCH (10:04)
[2020-06-26] MEDS: FAMOTIDINE 20 MG TAB PO SCH (10:15)
[2020-06-26] MEDS ORDERED: POTASSIUM CHLORIDE 60 MEQ, LIDOCAINE 1% (LOCAL ANESTH.) 6 ML in SODIUM CHL 0.9% 500 ML IV ONE (12:30)
[2020-06-26] MEDS ORDERED: POTASSIUM CHL 20 Meq TABLET PO ONE (12:45)
[2020-06-26 12:50] VITALS: BP 114/73
[2020-06-26] MEDS: METOPROLOL TARTRATE 25 MG TAB PO SCH ×2 (14:10→22:16)
[2020-06-26] MEDS ORDERED: cefTRIAXone 1GM/50ML D5W 50 ML IV ONE (15:30)
[2020-06-26 16:26] VITALS: BP 115/84
[2020-06-26] MEDS: HYDROcodone-ACET 5/325MG TAB PO PRN (20:04)
[2020-06-26 21:40] VITALS: BP 113/67
[2020-06-26] MEDS: ATORVASTATIN 20 MG TAB PO SCH (22:15)
[2020-06-27] MEDS: FUROSEMIDE 40 MG/4 ML VIAL IV SCH (05:38)
[2020-06-27] MEDS: HYDROcodone-ACET 5/325MG TAB PO PRN ×2 (05:39→12:26)
[2020-06-27 06:45] LABS: Basophils # (auto) 0.1 10 ^3/uL (0-0.2); Basophils % (auto) 1.2 % (0.0-2.0); Eosinophils # (auto) 0.1 10 ^3/uL (0-0.8); Eosinophils % (auto) 1.4 % (0.0-7.0); Hematocrit 34.8 % (41.0-53.0); Hemoglobin 11.1 g/dL (13.5-17.5); Lymphocytes # (auto) 0.8 10 ^3/uL (0.4-5.4); Lymphocytes % (auto) 17.5 % (10.0-50.0); Mean Corpuscular Hgb Conc. 31.9 g/dL (32.0-36.0); Mean Corpuscular Volume 87.7 fL (80.0-100.0); Monocytes # (auto) 0.4 10 ^3/uL (0-1.3); Monocytes % (auto) 7.9 % (0.0-12.0); Neutrophils # (auto) 3.4 10 ^3/uL (1.6-8.6); Nucleated Red Blood Cells % 0.1 %; Platelet Count (auto) 259 10^3/uL (140-450); Red Blood Cells 3.97 10^6/uL (4.5-5.90); Red Cell Distribution Width 19.7 % (11.8-14.3); White Blood Cell 4.7 10^3/uL (4.4-10.8)
[2020-06-27 06:59] LABS: BUN/Creatinine Ratio 16.8; Calcium 8.2 mg/dL (8.5-10.1); Potassium 3.5 mmol/L (3.5-5.1)
[2020-06-27] MEDS ORDERED: cefTRIAXone 1GM/50ML D5W 50 ML IV SCH (09:00)
[2020-06-27 09:24] VITALS: BP 116/63
[2020-06-27] MEDS: FAMOTIDINE 20 MG TAB PO SCH (09:43)
[2020-06-27] MEDS: ASPirin-EC 81 mg tab PO SCH (09:43)
[2020-06-27] MEDS: PANTOPRAZOLE 40 MG TAB PO SCH (09:43)
[2020-06-27] MEDS: METOPROLOL TARTRATE 25 MG TAB PO SCH (09:50)
[2020-06-27] MEDS: LISINOPRIL 10 MG TAB PO SCH (10:00)
[2020-06-27] MEDS ORDERED: POTASSIUM CHL 20 Meq TABLET PO SCH (10:00)
[2020-06-27] MEDS ORDERED: FURO1TAB31 PO (11:45)
[2020-06-27] MEDS ORDERED: CIPR-173 PO (11:45)
[2020-06-27 13:02] VITALS: BP 90/65
[2020-06-27 13:09] VITALS: BP 90/65
[2020-07-10] MEDS ORDERED: CAR3125T PO (12:17)
[2020-07-10] MEDS ORDERED: ASPI-378 PO (12:17)
[2020-07-10] MEDS ORDERED: LEV25T PO (12:17)
[2020-07-10] MEDS ORDERED: DOXY-286 PO (12:17)
[2020-07-10] MEDS ORDERED: SACU1TAB PO (12:17)
[2020-07-10] MEDS ORDERED: PANT40T PO (12:18)
[2020-07-10] MEDS ORDERED: POTA1TAB61 PO (12:18)
[2020-07-10] MEDS ORDERED: FURO1TAB31 PO (12:18)
[2020-07-10] MEDS ORDERED: NIC21P TOP (12:18)
[2020-07-10] MEDS ORDERED: DIGO0.12 PO (12:25)
== END 2020-06-27 16:30 | disposition home or self-care (01) | DRG 194 ==
LOC: ER 11:25 → TELE 11:26 → TELE-EAST 20:25
PROVIDERS: ADMIT Nurse Practitioner Acute Care; ATTEND Internal Medicine Pulmonary Disease
PROC: 0W9G3ZZ Drainage of Peritoneal Cavity, Percutaneous Approach (ICD-10-PCS; principal; 2020-06-26)
DX: I13.0 Hypertensive heart and chronic kidney disease with heart failure and stage 1 through stage 4 chronic kidney disease, or unspecified chronic kidney disease (principal); I50.23 Acute on chronic systolic (congestive) heart failure; K65.2 Spontaneous bacterial peritonitis; E87.1 Hypo-osmolality and hyponatremia; E87.8 Other disorders of electrolyte and fluid balance, not elsewhere classified; R18.8 Other ascites; E87.6 Hypokalemia; N18.31 Chronic kidney disease, stage 3a; K21.9 Gastro-esophageal reflux disease without esophagitis; E80.6 Other disorders of bilirubin metabolism; R79.89 Other specified abnormal findings of blood chemistry; E03.9 Hypothyroidism, unspecified; N50.89 Other specified disorders of the male genital organs; Z88.8 Allergy status to other drugs, medicaments and biological substances; Z91.14 Patient's other noncompliance with medication regimen
CPT/HCPCS: 10022; 36415; 71045; 71046; 76700; 76942; 80048; 80053; 80307; 81001; 83880; 84484; 85025; 85610; 89051; 93005; G0378; J0696; J2001; J3480

== ENCOUNTER 2020-07-03 15:27 | Inpatient (IN) | payer OTHER ==
[~2020-07-03] VITALS: Ht 180.3 cm; Wt 90.8 kg
[~2020-07-03 15:27] MED LIST changes: +CIPR-173 PO; -POTA-220 PO; +POTA25TA23 PO
[2020-07-03 16:48] LABS: Basophils # (auto) 0 10 ^3/uL (0-0.2); Basophils % (auto) 0.8 % (0.0-2.0); Eosinophils # (auto) 0.1 10 ^3/uL (0-0.8); Eosinophils % (auto) 1.7 % (0.0-7.0); Hematocrit 32.3 % (41.0-53.0); Lymphocytes # (auto) 0.8 10 ^3/uL (0.4-5.4); Lymphocytes % (auto) 16.9 % (10.0-50.0); Mean Corpuscular Hemoglobin 29.7 pg (28.0-32.0); Mean Corpuscular Hgb Conc. 33.9 g/dL (32.0-36.0); Mean Corpuscular Volume 87.5 fL (80.0-100.0); Monocytes # (auto) 0.5 10 ^3/uL (0-1.3); Monocytes % (auto) 10.1 % (0.0-12.0); Neutrophils # (auto) 3.3 10 ^3/uL (1.6-8.6); Neutrophils % (auto) 70.5 % (37.0-80.0); Nucleated Red Blood Cells % 0.1 %; Platelet Count (auto) 251 10^3/uL (140-450); Red Blood Cells 3.69 10^6/uL (4.5-5.90); White Blood Cell 4.7 10^3/uL (4.4-10.8)
[2020-07-03 16:51] LABS: Red Cell Distribution Width 20.4 % (11.8-14.3)
[2020-07-03 17:06] LABS: Albumin 2.9 g/dL (3.4-5.0); Anion Gap 7 (5-15); BUN/Creatinine Ratio 14.9; Blood Urea Nitrogen 21 mg/dL (7-18); Calcium 8.5 mg/dL (8.5-10.1); Carbon Dioxide 30 mmol/L (21-32); Chloride 95 mmol/L (98-107); GFR African American 73 mL/min; GFR Non-African American 60 mL/min; Glucose 93 mg/dL (74-106); Potassium 3.4 mmol/L (3.5-5.1); Sodium 132 mmol/L (136-145)
[2020-07-03 17:11] LABS: Alanine Aminotransferase 68 U/L (16-61); Alkaline Phosphatase 251 U/L (45-117); Aspartate Aminotransferase 96 U/L (15-37); Bilirubin, Total 3.9 mg/dL (0.2-1.0); Total Protein 6.5 g/dL (6.4-8.2)
[2020-07-03 18:18] LABS: Urine Amorphous Crystal FEW /hpf (None Seen); Urine Bacteria NONE SEEN /hpf (None Seen); Urine Blood Negative /uL (Negative); Urine Hyaline Cast MANY /lpf (0 - 2); Urine Specific Gravity 1.013 (1.001-1.035); Urine WBC 3 /hpf (0 - 3)
[2020-07-03 18:27] LABS: Alcohol, Urine < 3.0 mg/dL (0-10); Amphetamine Screen, Urine POSITIVE (NEGATIVE); Barbiturate Scree,Urine NEGATIVE (NEGATIVE); Benzodiazephine Screen, Urine NEGATIVE (NEGATIVE); Cannabinoid Screen, Urine NEGATIVE (NEGATIVE); Cocaine Screen, Urine NEGATIVE (NEGATIVE); Opiate Scree,Urine NEGATIVE (NEGATIVE); Phencyclidine Screen, Urine NEGATIVE (NEGATIVE)
[2020-07-03] MEDS ORDERED: LORazepam 2MG/ML-1ML VIAL IV ONE (23:30)
[2020-07-03] MEDS ORDERED: PIPERACILLIN-TAZO 4.5GM 100 ML IV ONE (23:30)
[2020-07-03] MEDS ORDERED: SODIUM CHLORIDE 0.9% 1,000 ML IV ONE (23:30)
[2020-07-03] MEDS ORDERED: VANCOMYCIN 1GM/250ML 250 ML IV ONE (23:30)
[2020-07-03] MEDS ORDERED: ONDANSETRON HCL 4 MG/2 ML VIAL IV ONE (23:30)
[2020-07-03] MEDS ORDERED: MORPHINE SULFATE 4 MG/ML SYR/VIAL IV ONE (23:30)
[2020-07-03 23:57] LABS: Magnesium 2.1 mg/dL (1.6-2.6)
[2020-07-04 00:06] LABS: CRP High Sensitivity 2.42 mg/dL (< 0.3)
[2020-07-04 00:22] LABS: INR 1.41 (0.9-1.15); Partial Thromboplastin Time 28.1 sec (23.0-31.2)
[2020-07-04] MEDS ORDERED: POTASSIUM CHL 20 Meq TABLET PO ONE (04:15)
[2020-07-04] MEDS: FUROSEMIDE 40 MG/4 ML VIAL IV SCH ×3 (04:15→17:19)
[2020-07-04] MEDS ORDERED: ONDANSETRON HCL 4 MG/2 ML VIAL IV PRN (04:15)
[2020-07-04] MEDS ORDERED: MORPHINE SULF INJ 2 MG/ML SYRINGE 1ML IV PRN (04:45)
[2020-07-04] MEDS ORDERED: NITROGLYCERIN 0.4 MG SL TAB SL PRN (04:45)
[2020-07-04] MEDS: PIPERACILLIN-TAZOB 3.375GM 100 ML IV SCH ×3 (07:32→21:18)
[2020-07-04] MEDS: LEVOTHYROXINE SODIUM 25 MCG TAB PO SCH (07:32)
[2020-07-04 08:23] VITALS: BP 123/92
[2020-07-04] MEDS: PANTOPRAZOLE 40 MG TAB PO SCH (08:47)
[2020-07-04] MEDS: LACTULOSE 20Gm/30ML SOLN PO SCH (08:47)
[2020-07-04] MEDS: ASPirin 81 mg TAB PO SCH (08:47)
[2020-07-04] MEDS: CARVEDILOL 3.125 MG TAB PO SCH ×2 (08:48→21:17)
[2020-07-04] MEDS: SACUBITRIL-VALSARTAN 24mg/26mg TAB PO SCH ×2 (08:48→21:17)
[2020-07-04 09:00] VITALS: BP 123/92
[2020-07-04 13:00] VITALS: BP 100/66
[2020-07-04 17:00] VITALS: BP 100/65
[2020-07-04 22:00] VITALS: BP 97/60
[2020-07-04] MEDS: HYDROcodone-ACET 5/325MG TAB PO PRN (23:35)
[2020-07-05] VITALS (10 sets, daily range): BP systolic 83–105; BP diastolic 50–78
[2020-07-05] MEDS: FUROSEMIDE 40 MG/4 ML VIAL IV SCH ×2 (05:50→18:09)
[2020-07-05] MEDS: PIPERACILLIN-TAZOB 3.375GM 100 ML IV SCH ×2 (05:50→14:19)
[2020-07-05] MEDS: LEVOTHYROXINE SODIUM 25 MCG TAB PO SCH (05:52)
[2020-07-05 06:53] LABS: Basophils # (auto) 0 10 ^3/uL (0-0.2); Basophils % (auto) 0.8 % (0.0-2.0); Eosinophils # (auto) 0.1 10 ^3/uL (0-0.8); Eosinophils % (auto) 2.4 % (0.0-7.0); Hematocrit 33.8 % (41.0-53.0); Hemoglobin 11.2 g/dL (13.5-17.5); Lymphocytes # (auto) 0.6 10 ^3/uL (0.4-5.4); Lymphocytes % (auto) 12.3 % (10.0-50.0); Mean Corpuscular Hemoglobin 28.7 pg (28.0-32.0); Monocytes # (auto) 0.4 10 ^3/uL (0-1.3); Monocytes % (auto) 7.3 % (0.0-12.0); Neutrophils % (auto) 77.2 % (37.0-80.0); Platelet Count (auto) 259 10^3/uL (140-450); Red Blood Cells 3.89 10^6/uL (4.5-5.90); White Blood Cell 5.2 10^3/uL (4.4-10.8)
[2020-07-05 07:02] LABS: Red Cell Distribution Width 21.4 % (11.8-14.3)
[2020-07-05 07:04] LABS: INR 1.2 (0.9-1.15)
[2020-07-05 07:07] LABS: Albumin 2.7 g/dL (3.4-5.0); Calcium 7.9 mg/dL (8.5-10.1)
[2020-07-05 07:09] LABS: BUN/Creatinine Ratio 12.6
[2020-07-05 07:11] LABS: Bilirubin, Total 2.9 mg/dL (0.2-1.0); Total Protein 6.3 g/dL (6.4-8.2)
[2020-07-05 07:29] LABS: Potassium 2.7 mmol/L (3.5-5.1)
[2020-07-05] MEDS: LACTULOSE 20Gm/30ML SOLN PO SCH (08:29)
[2020-07-05] MEDS: ASPirin 81 mg TAB PO SCH (08:29)
[2020-07-05] MEDS: PANTOPRAZOLE 40 MG TAB PO SCH (08:29)
[2020-07-05] MEDS: HYDROcodone-ACET 5/325MG TAB PO PRN ×2 (08:29→18:33)
[2020-07-05] MEDS: SACUBITRIL-VALSARTAN 24mg/26mg TAB PO SCH ×2 (08:30→22:08)
[2020-07-05] MEDS: CARVEDILOL 3.125 MG TAB PO SCH ×2 (08:30→22:08)
[2020-07-05] MEDS ORDERED: POTASSIUM CHL 20 Meq TABLET PO ONE ×2 (10:30→11:30)
[2020-07-05] MEDS: POTASSIUM CHL 20 Meq TABLET PO SCH (22:08)
[2020-07-06 05:00] VITALS: BP 100/50
[2020-07-06] MEDS: FUROSEMIDE 40 MG/4 ML VIAL IV SCH ×2 (06:10→17:32)
[2020-07-06] MEDS: LEVOTHYROXINE SODIUM 25 MCG TAB PO SCH (06:10)
[2020-07-06] MEDS: HYDROcodone-ACET 5/325MG TAB PO PRN ×3 (06:11→23:51)
[2020-07-06 09:00] VITALS: BP 100/59
[2020-07-06] MEDS: LACTULOSE 20Gm/30ML SOLN PO SCH (09:16)
[2020-07-06] MEDS: POTASSIUM CHL 20 Meq TABLET PO SCH ×2 (09:16→22:15)
[2020-07-06] MEDS: PANTOPRAZOLE 40 MG TAB PO SCH (09:16)
[2020-07-06] MEDS: SACUBITRIL-VALSARTAN 24mg/26mg TAB PO SCH ×2 (09:16→22:15)
[2020-07-06] MEDS: ASPirin 81 mg TAB PO SCH (09:16)
[2020-07-06] MEDS: CARVEDILOL 3.125 MG TAB PO SCH ×2 (09:17→22:14)
[2020-07-06 09:21] LABS: Albumin 2.5 g/dL (3.4-5.0); BUN/Creatinine Ratio 15.4; Magnesium 2.1 mg/dL (1.6-2.6); Potassium 3.6 mmol/L (3.5-5.1)
[2020-07-06 09:34] LABS: Bilirubin, Total 2.1 mg/dL (0.2-1.0)
[2020-07-06 13:00] VITALS: BP 98/55
[2020-07-06 17:00] VITALS: BP 106/61
[2020-07-07 01:53] VITALS: BP 127/63
[2020-07-07 05:44] VITALS: BP 115/58
[2020-07-07] MEDS: LEVOTHYROXINE SODIUM 25 MCG TAB PO SCH (06:19)
[2020-07-07] MEDS: FUROSEMIDE 40 MG/4 ML VIAL IV SCH ×2 (06:19→17:42)
[2020-07-07] MEDS: HYDROcodone-ACET 5/325MG TAB PO PRN ×3 (06:20→18:15)
[2020-07-07 08:26] VITALS: BP 105/64
[2020-07-07] MEDS: ASPirin 81 mg TAB PO SCH (09:22)
[2020-07-07] MEDS: LACTULOSE 20Gm/30ML SOLN PO SCH (09:22)
[2020-07-07] MEDS: POTASSIUM CHL 20 Meq TABLET PO SCH ×2 (09:22→21:46)
[2020-07-07] MEDS: SACUBITRIL-VALSARTAN 24mg/26mg TAB PO SCH ×2 (09:22→21:45)
[2020-07-07] MEDS: PANTOPRAZOLE 40 MG TAB PO SCH (09:22)
[2020-07-07] MEDS: CARVEDILOL 3.125 MG TAB PO SCH ×2 (09:23→21:45)
[2020-07-07 12:42] VITALS: BP 102/57
[2020-07-07 16:30] VITALS: BP 109/68
[2020-07-07] MEDS ORDERED: DOXYCYCLINE 100 MG TAB/CAP PO ONE (17:00)
[2020-07-07] MEDS ORDERED: cefTRIAXone 1GM/50ML D5W 50 ML IV ONE (17:00)
[2020-07-07 21:00] VITALS: BP 102/76
[2020-07-07] MEDS: DOXYCYCLINE 100 MG TAB/CAP PO SCH (21:46)
[2020-07-08] MEDS: HYDROcodone-ACET 5/325MG TAB PO PRN ×2 (01:36→09:31)
[2020-07-08 05:00] VITALS: BP 106/63
[2020-07-08 05:32] LABS: Basophils # (auto) 0.1 10 ^3/uL (0-0.2); Basophils % (auto) 1.4 % (0.0-2.0); Eosinophils # (auto) 0.1 10 ^3/uL (0-0.8); Eosinophils % (auto) 1.7 % (0.0-7.0); Hemoglobin 10.5 g/dL (13.5-17.5); Lymphocytes # (auto) 0.8 10 ^3/uL (0.4-5.4); Lymphocytes % (auto) 15.2 % (10.0-50.0); Mean Corpuscular Hemoglobin 27.7 pg (28.0-32.0); Mean Corpuscular Hgb Conc. 31.9 g/dL (32.0-36.0); Mean Corpuscular Volume 86.9 fL (80.0-100.0); Monocytes # (auto) 0.5 10 ^3/uL (0-1.3); Monocytes % (auto) 10.9 % (0.0-12.0); Neutrophils # (auto) 3.5 10 ^3/uL (1.6-8.6); Neutrophils % (auto) 70.8 % (37.0-80.0); Nucleated Red Blood Cells % 0.1 %; Platelet Count (auto) 256 10^3/uL (140-450); White Blood Cell 4.9 10^3/uL (4.4-10.8)
[2020-07-08 05:53] LABS: Calcium 8.2 mg/dL (8.5-10.1); Potassium 4.1 mmol/L (3.5-5.1)
[2020-07-08 05:55] LABS: BUN/Creatinine Ratio 22.1
[2020-07-08] MEDS: FUROSEMIDE 40 MG/4 ML VIAL IV SCH ×2 (06:23→17:50)
[2020-07-08] MEDS: LEVOTHYROXINE SODIUM 25 MCG TAB PO SCH (06:23)
[2020-07-08 09:00] VITALS: BP 106/60
[2020-07-08] MEDS ORDERED: cefTRIAXone 1GM/50ML D5W 50 ML IV SCH (09:00)
[2020-07-08] MEDS: POTASSIUM CHL 20 Meq TABLET PO SCH (09:16)
[2020-07-08] MEDS: DOXYCYCLINE 100 MG TAB/CAP PO SCH ×2 (09:16→22:08)
[2020-07-08] MEDS: LACTULOSE 20Gm/30ML SOLN PO SCH (09:16)
[2020-07-08] MEDS: ASPirin 81 mg TAB PO SCH (09:16)
[2020-07-08] MEDS: PANTOPRAZOLE 40 MG TAB PO SCH (09:16)
[2020-07-08] MEDS: CARVEDILOL 3.125 MG TAB PO SCH ×2 (09:17→22:09)
[2020-07-08] MEDS: SACUBITRIL-VALSARTAN 24mg/26mg TAB PO SCH ×2 (09:30→22:08)
[2020-07-08 13:00] VITALS: BP 126/74
[2020-07-08 17:00] VITALS: BP 140/66
[2020-07-08 22:00] VITALS: BP 109/70
[2020-07-08] MEDS: POTASSIUM CHL 10 Meq TABLET PO SCH (22:08)
[2020-07-09 05:00] VITALS: BP 91/51
[2020-07-09] MEDS: FUROSEMIDE 40 MG/4 ML VIAL IV SCH ×2 (06:00→18:00)
[2020-07-09] MEDS: LEVOTHYROXINE SODIUM 25 MCG TAB PO SCH (07:08)
[2020-07-09 08:08] LABS: Albumin 2.4 g/dL (3.4-5.0); BUN/Creatinine Ratio 20.8; Bilirubin, Total 1.4 mg/dL (0.2-1.0); Calcium 8.5 mg/dL (8.5-10.1); Magnesium 2.1 mg/dL (1.6-2.6); Total Protein 5.8 g/dL (6.4-8.2)
[2020-07-09 08:57] VITALS: BP 117/71
[2020-07-09] MEDS: LACTULOSE 20Gm/30ML SOLN PO SCH (10:45)
[2020-07-09] MEDS: DOXYCYCLINE 100 MG TAB/CAP PO SCH ×2 (10:45→22:38)
[2020-07-09] MEDS: PANTOPRAZOLE 40 MG TAB PO SCH (10:45)
[2020-07-09] MEDS: ASPirin 81 mg TAB PO SCH (10:45)
[2020-07-09] MEDS: CARVEDILOL 3.125 MG TAB PO SCH ×2 (10:46→22:38)
[2020-07-09] MEDS: SACUBITRIL-VALSARTAN 24mg/26mg TAB PO SCH ×2 (10:52→22:37)
[2020-07-09] MEDS: POTASSIUM CHL 10 Meq TABLET PO SCH ×2 (10:53→22:38)
[2020-07-09 13:00] VITALS: BP 100/68
[2020-07-09 16:49] VITALS: BP 98/59
[2020-07-09 22:00] VITALS: BP 110/66
[2020-07-10] MEDS: HYDROcodone-ACET 5/325MG TAB PO PRN (03:48)
[2020-07-10 05:00] VITALS: BP 110/77
[2020-07-10] MEDS: LEVOTHYROXINE SODIUM 25 MCG TAB PO SCH (06:33)
[2020-07-10] MEDS: FUROSEMIDE 40 MG/4 ML VIAL IV SCH (06:33)
[2020-07-10 09:00] VITALS: BP 106/70
[2020-07-10] MEDS: CARVEDILOL 3.125 MG TAB PO SCH (09:15)
[2020-07-10] MEDS: DOXYCYCLINE 100 MG TAB/CAP PO SCH (09:15)
[2020-07-10] MEDS: POTASSIUM CHL 10 Meq TABLET PO SCH (09:15)
[2020-07-10] MEDS: ASPirin 81 mg TAB PO SCH (09:15)
[2020-07-10] MEDS: SACUBITRIL-VALSARTAN 24mg/26mg TAB PO SCH (09:15)
[2020-07-10] MEDS: PANTOPRAZOLE 40 MG TAB PO SCH (09:15)
[2020-07-10] MEDS: LACTULOSE 20Gm/30ML SOLN PO SCH (09:15)
[2020-07-10] MEDS ORDERED: DIGOXIN 0.25 MG TAB PO ONE (12:15)
[2020-07-10] MEDS ORDERED: SACU1TAB PO (12:17)
[2020-07-10] MEDS ORDERED: CAR3125T PO (12:17)
[2020-07-10] MEDS ORDERED: LEV25T PO (12:17)
[2020-07-10] MEDS ORDERED: ASPI-378 PO (12:17)
[2020-07-10] MEDS ORDERED: DOXY-286 PO (12:17)
[2020-07-10] MEDS ORDERED: FURO1TAB31 PO (12:18)
[2020-07-10] MEDS ORDERED: POTA1TAB61 PO (12:18)
[2020-07-10] MEDS ORDERED: NIC21P TOP (12:18)
[2020-07-10] MEDS ORDERED: PANT40T PO (12:18)
[2020-07-10] MEDS ORDERED: DIGO0.12 PO (12:25)
== END 2020-07-10 16:00 | disposition home health service (06) | DRG 194 ==
LOC: ER 15:27 → TELE 15:28 → TELE-WESTW 07-04 08:22
PROVIDERS: ADMIT Nurse Practitioner; ATTEND Internal Medicine
PROC: 0W9B30Z Drainage of Left Pleural Cavity with Drainage Device, Percutaneous Approach (ICD-10-PCS; principal; 2020-07-05)
DX: I50.43 Acute on chronic combined systolic (congestive) and diastolic (congestive) heart failure (principal); N17.0 Acute kidney failure with tubular necrosis; E44.0 Moderate protein-calorie malnutrition; J91.8 Pleural effusion in other conditions classified elsewhere; I42.7 Cardiomyopathy due to drug and external agent; K70.31 Alcoholic cirrhosis of liver with ascites; K76.6 Portal hypertension; L03.311 Cellulitis of abdominal wall; I42.0 Dilated cardiomyopathy; E87.1 Hypo-osmolality and hyponatremia; F15.10 Other stimulant abuse, uncomplicated; E87.6 Hypokalemia; N45.1 Epididymitis; E03.9 Hypothyroidism, unspecified; E87.8 Other disorders of electrolyte and fluid balance, not elsewhere classified; G47.30 Sleep apnea, unspecified; I86.1 Scrotal varices; J98.11 Atelectasis; Z79.82 Long term (current) use of aspirin; Z87.891 Personal history of nicotine dependence; Z91.14 Patient's other noncompliance with medication regimen; E66.01 Morbid (severe) obesity due to excess calories; K21.9 Gastro-esophageal reflux disease without esophagitis; Z59.0 Homelessness; Z68.27 Body mass index [BMI] 27.0-27.9, adult; Z88.8 Allergy status to other drugs, medicaments and biological substances; Z91.19 Patient's noncompliance with other medical treatment and regimen; N18.31 Chronic kidney disease, stage 3a
CPT/HCPCS: 10022; 36415; 36600; 71045; 71046; 74176; 76700; 76870; 76942; 80048; 80053; 80307; 81001; 82140; 82150; 82805; 83605; 83690; 83735; 83880; 84132; 84443; 84484; 85025; 85610; 85730; 86141; 87040; 87086; 93005; 96365; 96368; 96375; 97163; G0378; J0696; J2405; J2543

== ENCOUNTER 2020-07-18 14:11 | Inpatient (IN) | payer OTHER ==
[~2020-07-18] VITALS: Ht 185.4 cm; Wt 57.0 kg
[2020-07-18 01:25] VITALS: BP 108/72
[~2020-07-18 14:11] MED LIST changes: -CIPR-173 PO; +DIGO0.12 PO; +DOXY-286 PO; +POTA1TAB61 PO; -POTA25TA23 PO
[2020-07-18] MEDS ORDERED: FUROSEMIDE 40 MG/4 ML VIAL IV ONE (15:00)
[2020-07-18] MEDS ORDERED: methylPREDNISolone SOD SUCC 125 MG/2 ML VL IV ONE (15:00)
[2020-07-18] MEDS ORDERED: cefTRIAXone 1GM/50ML D5W 50 ML IV ONE (15:00)
[2020-07-18] MEDS ORDERED: AZITHROMYCIN 500MG/ 250ML 250 ML IV ONE (15:00)
[2020-07-18 16:00] LABS: Urine Bacteria NONE SEEN /hpf (None Seen); Urine Blood Negative /uL (Negative); Urine Hyaline Cast FEW /lpf (0 - 2); Urine Specific Gravity 1.007 (1.001-1.035); Urine WBC <1 /hpf (0 - 3)
[2020-07-18] MEDS ORDERED: NITROGLYCERIN 0.4 MG SL TAB SL PRN (16:00)
[2020-07-18] MEDS ORDERED: MORPHINE SULF INJ 2 MG/ML SYRINGE 1ML IV PRN (16:00)
[2020-07-18 16:03] LABS: Basophils # (auto) 0 10 ^3/uL (0-0.2); Basophils % (auto) 0.9 % (0.0-2.0); Eosinophils # (auto) 0 10 ^3/uL (0-0.8); Eosinophils % (auto) 0.1 % (0.0-7.0); Hematocrit 30.6 % (41.0-53.0); Hemoglobin 9.7 g/dL (13.5-17.5); Lymphocytes # (auto) 0.6 10 ^3/uL (0.4-5.4); Lymphocytes % (auto) 14.5 % (10.0-50.0); Mean Corpuscular Hemoglobin 27.2 pg (28.0-32.0); Mean Corpuscular Hgb Conc. 31.9 g/dL (32.0-36.0); Mean Corpuscular Volume 85.4 fL (80.0-100.0); Monocytes # (auto) 0.4 10 ^3/uL (0-1.3); Monocytes % (auto) 10.2 % (0.0-12.0); Neutrophils % (auto) 74.3 % (37.0-80.0); Nucleated Red Blood Cells % 0.3 %; Platelet Count (auto) 262 10^3/uL (140-450); Red Blood Cells 3.58 10^6/uL (4.5-5.90)
[2020-07-18 16:04] LABS: Red Cell Distribution Width 20.8 % (11.8-14.3)
[2020-07-18 16:09] LABS: BUN/Creatinine Ratio 15.7; Calcium 8.2 mg/dL (8.5-10.1); Magnesium 1.9 mg/dL (1.6-2.6); Potassium 3.3 mmol/L (3.5-5.1)
[2020-07-18 16:14] LABS: Bilirubin, Total 2.8 mg/dL (0.2-1.0); Total Protein 6.7 g/dL (6.4-8.2)
[2020-07-18 16:18] LABS: Amphetamine Screen, Urine POSITIVE (NEGATIVE); Barbiturate Scree,Urine NEGATIVE (NEGATIVE); Benzodiazephine Screen, Urine NEGATIVE (NEGATIVE); Cannabinoid Screen, Urine NEGATIVE (NEGATIVE); Cocaine Screen, Urine NEGATIVE (NEGATIVE); Opiate Scree,Urine NEGATIVE (NEGATIVE); Phencyclidine Screen, Urine NEGATIVE (NEGATIVE)
[2020-07-18 16:20] LABS: Lactic Acid w/Reflex 3.1 mmol/L (0.4-2.0)
[2020-07-18] MEDS ORDERED: SPIRONOLACTONE 25 MG TAB PO ONE (17:00)
[2020-07-18] MEDS ORDERED: THIAMINE 100mg/ml INJ (200mg/2ml VIAL) IV ONE (17:00)
[2020-07-18] MEDS ORDERED: PROMETHAZINE HCL 25 MG/ML 1ML IV PRN (17:00)
[2020-07-18] MEDS ORDERED: levoFLOXacin 500MG 100 ML IV ONE (17:15)
[2020-07-18 17:33] LABS: INR 1.72 (0.9-1.15); Partial Thromboplastin Time 29.3 sec (23.0-31.2)
[2020-07-18 20:30] VITALS: BP 108/72
[2020-07-18] MEDS: chlordiazePOXIDE HCL 5 MG CAP PO SCH (20:30)
[2020-07-18] MEDS: BUDESONIDE (INHALATION) 180 MCG IH IN SCH (22:00)
[2020-07-18] MEDS: CLINDAMYCIN 600MG IV 50 ML IV SCH (22:39)
[2020-07-18] MEDS: FUROSEMIDE 40 MG/4 ML VIAL IV SCH (22:40)
[2020-07-18] MEDS: DOXYCYCLINE 100 MG TAB/CAP PO SCH (22:41)
[2020-07-18] MEDS: CARVEDILOL 3.125 MG TAB PO SCH (22:41)
[2020-07-19] MEDS ORDERED: PNEUMOCOCCAL VACC POLYS 25 MCG/0.5 ML VIAL IM ONE (00:15)
[2020-07-19] MEDS ORDERED: INFLUENZA QUAD 2020-2021 0.5 ML SYRG IM ONE (00:15)
[2020-07-19] MEDS: chlordiazePOXIDE HCL 5 MG CAP PO SCH ×5 (00:59→23:36)
[2020-07-19] MEDS: MORPHINE SULF INJ 2 MG/ML SYRINGE 1ML IV PRN ×2 (01:00→18:50)
[2020-07-19] MEDS: CLINDAMYCIN 600MG IV 50 ML IV SCH ×3 (05:40→21:45)
[2020-07-19] MEDS: FUROSEMIDE 40 MG/4 ML VIAL IV SCH ×2 (05:41→17:41)
[2020-07-19] MEDS: SPIRONOLACTONE 25 MG TAB PO SCH ×2 (05:41→17:41)
[2020-07-19] MEDS: ALBUTEROL SULF HFA 90MCG INH 200DOSE IN SCH ×3 (06:00→13:40)
[2020-07-19 06:12] VITALS: BP 108/72
[2020-07-19] MEDS: BUDESONIDE (INHALATION) 180 MCG IH IN SCH (07:25)
[2020-07-19 07:50] LABS: Basophils # (auto) 0 10 ^3/uL (0-0.2); Basophils % (auto) 0.2 % (0.0-2.0); Eosinophils # (auto) 0 10 ^3/uL (0-0.8); Lymphocytes # (auto) 0.3 10 ^3/uL (0.4-5.4); Mean Corpuscular Hemoglobin 27.3 pg (28.0-32.0); Mean Corpuscular Hgb Conc. 32.1 g/dL (32.0-36.0); Mean Corpuscular Volume 84.9 fL (80.0-100.0); Monocytes # (auto) 0.1 10 ^3/uL (0-1.3); Monocytes % (auto) 2.3 % (0.0-12.0); Neutrophils # (auto) 2.7 10 ^3/uL (1.6-8.6); Neutrophils % (auto) 87.5 % (37.0-80.0); Nucleated Red Blood Cells % 0.4 %; Platelet Count (auto) 240 10^3/uL (140-450); White Blood Cell 3.1 10^3/uL (4.4-10.8)
[2020-07-19 07:51] LABS: Albumin 2.9 g/dL (3.4-5.0); BUN/Creatinine Ratio 19.2; Calcium 8.2 mg/dL (8.5-10.1)
[2020-07-19 07:54] LABS: Bilirubin, Total 2.2 mg/dL (0.2-1.0); Total Protein 6.6 g/dL (6.4-8.2)
[2020-07-19 07:59] LABS: Red Cell Distribution Width 20.9 % (11.8-14.3)
[2020-07-19 08:00] VITALS: BP 99/60
[2020-07-19 08:07] LABS: Potassium 2.8 mmol/L (3.5-5.1)
[2020-07-19] MEDS ORDERED: POTASSIUM CHL 20 Meq TABLET PO ONE (08:15)
[2020-07-19] MEDS ORDERED: POTASSIUM CHLORIDE 60 MEQ, LIDOCAINE 1% (LOCAL ANESTH.) 6 ML in SODIUM CHL 0.9% 500 ML IV ONE (08:15)
[2020-07-19] MEDS: DexAMETHasone SOD PHOS 10MG/1ML VIAL INJ IV SCH (09:06)
[2020-07-19] MEDS: THIAMINE 100mg/ml INJ (200mg/2ml VIAL) IV SCH (09:06)
[2020-07-19] MEDS: CHOLECALCIFEROL (VITD3) 2,000 UNIT CAP PO SCH (09:07)
[2020-07-19] MEDS: PANTOPRAZOLE 40 MG TAB PO SCH (09:07)
[2020-07-19] MEDS: DOXYCYCLINE 100 MG TAB/CAP PO SCH (09:07)
[2020-07-19] MEDS: ZINC SULFATE 220mg CAP or TAB PO SCH (09:08)
[2020-07-19] MEDS: ASCORBIC ACID 1,000 MG TAB PO SCH (09:09)
[2020-07-19] MEDS ORDERED: levoFLOXacin 500MG 100 ML IV SCH (10:00)
[2020-07-19] MEDS: ENALAPRIL MALEATE 2.5 MG TAB PO SCH (10:00)
[2020-07-19] MEDS ORDERED: ENOXAPARIN SOD 40 MG/0.4 ML SYRINGE SC SCH (10:00)
[2020-07-19 10:20] VITALS: BP 99/60
[2020-07-19] MEDS: POTASSIUM CHL 20 Meq TABLET PO SCH (11:22)
[2020-07-19] MEDS: CARVEDILOL 3.125 MG TAB PO SCH ×2 (11:35→21:45)
[2020-07-19 12:00] VITALS: BP 104/68
[2020-07-19 16:52] VITALS: BP 101/78
[2020-07-19 21:00] VITALS: BP 158/74
[2020-07-19] MEDS: TEMAZEPAM 15 MG CAP PO PRN (23:37)
[2020-07-20] MEDS: MORPHINE SULF INJ 2 MG/ML SYRINGE 1ML IV PRN ×3 (00:37→20:56)
[2020-07-20] MEDS: chlordiazePOXIDE HCL 25 MG CAP PO PRN (03:24)
[2020-07-20 05:00] VITALS: BP 115/73
[2020-07-20] MEDS: FUROSEMIDE 40 MG/4 ML VIAL IV SCH ×2 (06:35→17:34)
[2020-07-20] MEDS: CLINDAMYCIN 600MG IV 50 ML IV SCH (06:35)
[2020-07-20] MEDS: chlordiazePOXIDE HCL 5 MG CAP PO SCH ×4 (06:36→23:48)
[2020-07-20] MEDS: SPIRONOLACTONE 25 MG TAB PO SCH ×2 (06:36→17:35)
[2020-07-20] MEDS: BUDESONIDE (INHALATION) 180 MCG IH IN SCH ×2 (07:25→21:20)
[2020-07-20] MEDS: ALBUTEROL SULF HFA 90MCG INH 200DOSE IN SCH ×3 (07:25→21:20)
[2020-07-20 07:28] LABS: Basophils # (auto) 0 10 ^3/uL (0-0.2); Basophils % (auto) 0.1 % (0.0-2.0); Eosinophils # (auto) 0 10 ^3/uL (0-0.8); Hematocrit 29.9 % (41.0-53.0); Hemoglobin 9.5 g/dL (13.5-17.5); Lymphocytes # (auto) 0.4 10 ^3/uL (0.4-5.4); Lymphocytes % (auto) 4.7 % (10.0-50.0); Mean Corpuscular Hemoglobin 27.6 pg (28.0-32.0); Mean Corpuscular Hgb Conc. 31.6 g/dL (32.0-36.0); Mean Corpuscular Volume 87.3 fL (80.0-100.0); Monocytes # (auto) 0.5 10 ^3/uL (0-1.3); Monocytes % (auto) 5.2 % (0.0-12.0); Neutrophils # (auto) 7.9 10 ^3/uL (1.6-8.6); Nucleated Red Blood Cells % 0.1 %; Platelet Count (auto) 208 10^3/uL (140-450); Red Blood Cells 3.42 10^6/uL (4.5-5.90); White Blood Cell 8.8 10^3/uL (4.4-10.8)
[2020-07-20 07:37] LABS: Calcium 8.1 mg/dL (8.5-10.1); Potassium 4.8 mmol/L (3.5-5.1)
[2020-07-20 07:39] LABS: BUN/Creatinine Ratio 21.5
[2020-07-20 07:43] LABS: Red Cell Distribution Width 20.7 % (11.8-14.3)
[2020-07-20 08:00] VITALS: BP 115/73
[2020-07-20 09:00] VITALS: BP 103/60
[2020-07-20] MEDS: DexAMETHasone SOD PHOS 10MG/1ML VIAL INJ IV SCH (10:31)
[2020-07-20] MEDS: ZINC SULFATE 220mg CAP or TAB PO SCH (10:31)
[2020-07-20] MEDS: POTASSIUM CHL 20 Meq TABLET PO SCH (10:31)
[2020-07-20] MEDS: THIAMINE 100mg/ml INJ (200mg/2ml VIAL) IV SCH (10:31)
[2020-07-20] MEDS: ASCORBIC ACID 1,000 MG TAB PO SCH (10:32)
[2020-07-20] MEDS: PANTOPRAZOLE 40 MG TAB PO SCH (10:32)
[2020-07-20] MEDS: ENALAPRIL MALEATE 2.5 MG TAB PO SCH (10:32)
[2020-07-20] MEDS: CARVEDILOL 3.125 MG TAB PO SCH ×2 (10:33→21:40)
[2020-07-20] MEDS: CHOLECALCIFEROL (VITD3) 2,000 UNIT CAP PO SCH (10:33)
[2020-07-20 13:00] VITALS: BP 109/58
[2020-07-20] MEDS: PIPERACILLIN-TAZOB 3.375GM 100 ML IV SCH ×2 (14:23→21:39)
[2020-07-20 17:00] VITALS: BP 109/70
[2020-07-20] MEDS: LINEZOLID 600MG/300ML 300 ML IV SCH (19:41)
[2020-07-20 21:00] VITALS: BP 100/74
[2020-07-21] MEDS: MORPHINE SULF INJ 2 MG/ML SYRINGE 1ML IV PRN ×2 (00:57→21:40)
[2020-07-21] MEDS: TEMAZEPAM 15 MG CAP PO PRN (01:48)
[2020-07-21 05:00] VITALS: BP 103/61
[2020-07-21] MEDS: PIPERACILLIN-TAZOB 3.375GM 100 ML IV SCH ×3 (06:05→22:26)
[2020-07-21] MEDS: SPIRONOLACTONE 25 MG TAB PO SCH ×2 (06:05→17:46)
[2020-07-21] MEDS: chlordiazePOXIDE HCL 5 MG CAP PO SCH ×3 (06:05→17:46)
[2020-07-21] MEDS: FUROSEMIDE 40 MG/4 ML VIAL IV SCH ×2 (06:05→17:46)
[2020-07-21] MEDS: ALBUTEROL SULF HFA 90MCG INH 200DOSE IN SCH ×3 (06:17→23:03)
[2020-07-21] MEDS: BUDESONIDE (INHALATION) 180 MCG IH IN SCH ×2 (06:17→23:03)
[2020-07-21 08:00] VITALS: BP 103/61
[2020-07-21] MEDS: LINEZOLID 600MG/300ML 300 ML IV SCH ×2 (08:00→19:46)
[2020-07-21 09:00] VITALS: BP 108/69
[2020-07-21] MEDS: ZINC SULFATE 220mg CAP or TAB PO SCH (10:11)
[2020-07-21] MEDS: DexAMETHasone SOD PHOS 10MG/1ML VIAL INJ IV SCH (10:11)
[2020-07-21] MEDS: THIAMINE 100mg/ml INJ (200mg/2ml VIAL) IV SCH (10:11)
[2020-07-21] MEDS: ENALAPRIL MALEATE 2.5 MG TAB PO SCH (10:12)
[2020-07-21] MEDS: PANTOPRAZOLE 40 MG TAB PO SCH (10:12)
[2020-07-21] MEDS: CARVEDILOL 3.125 MG TAB PO SCH ×2 (10:12→21:28)
[2020-07-21] MEDS: CHOLECALCIFEROL (VITD3) 2,000 UNIT CAP PO SCH (10:13)
[2020-07-21] MEDS: ASCORBIC ACID 1,000 MG TAB PO SCH (10:13)
[2020-07-21 12:57] VITALS: BP 106/76
[2020-07-21] MEDS ORDERED: cefTRIAXone 1GM/50ML D5W 50 ML IV ONE (14:00)
[2020-07-21] MEDS ORDERED: DIGOXIN 0.125 MG TAB PO ONE (14:15)
[2020-07-21 17:00] VITALS: BP 121/67
[2020-07-21] MEDS: chlordiazePOXIDE HCL 25 MG CAP PO PRN (21:26)
[2020-07-21 22:00] VITALS: BP 110/74
[2020-07-22] MEDS: TEMAZEPAM 15 MG CAP PO PRN (01:16)
[2020-07-22 05:00] VITALS: BP 108/65
[2020-07-22] MEDS: PIPERACILLIN-TAZOB 3.375GM 100 ML IV SCH ×3 (06:14→22:49)
[2020-07-22] MEDS: FUROSEMIDE 40 MG/4 ML VIAL IV SCH ×2 (06:14→17:43)
[2020-07-22] MEDS: chlordiazePOXIDE HCL 5 MG CAP PO SCH ×4 (06:15→17:43)
[2020-07-22] MEDS: SPIRONOLACTONE 25 MG TAB PO SCH ×2 (06:15→17:43)
[2020-07-22 06:29] LABS: Hematocrit 29.2 % (41.0-53.0); Hemoglobin 9.3 g/dL (13.5-17.5)
[2020-07-22 06:44] LABS: Potassium 4.1 mmol/L (3.5-5.1)
[2020-07-22 07:08] LABS: Albumin 2.6 g/dL (3.4-5.0); Magnesium 2.4 mg/dL (1.6-2.6); Total Protein 6.2 g/dL (6.4-8.2)
[2020-07-22] MEDS: ALBUTEROL SULF HFA 90MCG INH 200DOSE IN SCH ×3 (07:18→21:44)
[2020-07-22] MEDS: BUDESONIDE (INHALATION) 180 MCG IH IN SCH ×2 (07:19→21:44)
[2020-07-22 08:00] VITALS: BP 122/60
[2020-07-22] MEDS ORDERED: cefTRIAXone 1GM/50ML D5W 50 ML IV SCH (09:00)
[2020-07-22] MEDS: CHOLECALCIFEROL (VITD3) 2,000 UNIT CAP PO SCH (10:00)
[2020-07-22] MEDS: LINEZOLID 600MG/300ML 300 ML IV SCH ×2 (10:28→20:15)
[2020-07-22] MEDS: THIAMINE 100mg/ml INJ (200mg/2ml VIAL) IV SCH (10:28)
[2020-07-22] MEDS: DexAMETHasone SOD PHOS 10MG/1ML VIAL INJ IV SCH (10:29)
[2020-07-22] MEDS: ZINC SULFATE 220mg CAP or TAB PO SCH (10:29)
[2020-07-22] MEDS: MORPHINE SULF INJ 2 MG/ML SYRINGE 1ML IV PRN ×2 (10:31→20:15)
[2020-07-22] MEDS: CARVEDILOL 3.125 MG TAB PO SCH ×2 (10:31→22:50)
[2020-07-22] MEDS: ASCORBIC ACID 1,000 MG TAB PO SCH (10:32)
[2020-07-22] MEDS: ENALAPRIL MALEATE 2.5 MG TAB PO SCH (10:32)
[2020-07-22] MEDS: PANTOPRAZOLE 40 MG TAB PO SCH (10:32)
[2020-07-22] MEDS: DIGOXIN 0.125 MG TAB PO SCH (10:33)
[2020-07-22 12:00] VITALS: BP 126/77
[2020-07-22 13:47] VITALS: BP 125/58
[2020-07-22 17:00] VITALS: BP 102/59
[2020-07-22 22:20] VITALS: BP 102/63
[2020-07-23] MEDS: chlordiazePOXIDE HCL 5 MG CAP PO SCH ×4 (01:08→17:58)
[2020-07-23] MEDS: TEMAZEPAM 15 MG CAP PO PRN (01:31)
[2020-07-23 05:00] VITALS: BP 99/60
[2020-07-23] MEDS: FUROSEMIDE 40 MG/4 ML VIAL IV SCH ×2 (06:10→17:57)
[2020-07-23] MEDS: PIPERACILLIN-TAZOB 3.375GM 100 ML IV SCH ×3 (06:10→22:33)
[2020-07-23] MEDS: SPIRONOLACTONE 25 MG TAB PO SCH ×2 (06:11→17:58)
[2020-07-23 06:27] LABS: Basophils # (auto) 0 10 ^3/uL (0-0.2); Basophils % (auto) 0.1 % (0.0-2.0); Eosinophils # (auto) 0 10 ^3/uL (0-0.8); Hematocrit 30.1 % (41.0-53.0); Hemoglobin 9.6 g/dL (13.5-17.5); Lymphocytes # (auto) 0.2 10 ^3/uL (0.4-5.4); Lymphocytes % (auto) 2.4 % (10.0-50.0); Mean Corpuscular Hemoglobin 27.3 pg (28.0-32.0); Mean Corpuscular Hgb Conc. 31.8 g/dL (32.0-36.0); Mean Corpuscular Volume 85.7 fL (80.0-100.0); Monocytes # (auto) 0.2 10 ^3/uL (0-1.3); Monocytes % (auto) 2.9 % (0.0-12.0); Neutrophils # (auto) 6.2 10 ^3/uL (1.6-8.6); Neutrophils % (auto) 94.6 % (37.0-80.0); Nucleated Red Blood Cells % 0.1 %; Platelet Count (auto) 168 10^3/uL (140-450); Red Blood Cells 3.51 10^6/uL (4.5-5.90); White Blood Cell 6.6 10^3/uL (4.4-10.8)
[2020-07-23 06:46] LABS: Red Cell Distribution Width 20.2 % (11.8-14.3)
[2020-07-23 06:50] LABS: BUN/Creatinine Ratio 35.4; Potassium 3.8 mmol/L (3.5-5.1)
[2020-07-23] MEDS: ALBUTEROL SULF HFA 90MCG INH 200DOSE IN SCH ×3 (08:02→20:46)
[2020-07-23] MEDS: BUDESONIDE (INHALATION) 180 MCG IH IN SCH ×2 (08:03→20:46)
[2020-07-23 09:00] VITALS: BP 102/57
[2020-07-23] MEDS: DexAMETHasone SOD PHOS 10MG/1ML VIAL INJ IV SCH (09:26)
[2020-07-23] MEDS: THIAMINE 100mg/ml INJ (200mg/2ml VIAL) IV SCH (09:26)
[2020-07-23] MEDS: LINEZOLID 600MG/300ML 300 ML IV SCH ×2 (09:26→20:26)
[2020-07-23] MEDS: ZINC SULFATE 220mg CAP or TAB PO SCH (09:27)
[2020-07-23] MEDS: CARVEDILOL 3.125 MG TAB PO SCH ×2 (09:27→22:33)
[2020-07-23] MEDS: DIGOXIN 0.125 MG TAB PO SCH (09:28)
[2020-07-23] MEDS: ENALAPRIL MALEATE 2.5 MG TAB PO SCH (09:29)
[2020-07-23] MEDS: PANTOPRAZOLE 40 MG TAB PO SCH (09:30)
[2020-07-23] MEDS: ASCORBIC ACID 1,000 MG TAB PO SCH (09:30)
[2020-07-23] MEDS: CHOLECALCIFEROL (VITD3) 2,000 UNIT CAP PO SCH (09:30)
[2020-07-23] MEDS ORDERED: acetaZOLAMIDE 250 MG TAB PO ONE (12:15)
[2020-07-23 13:00] VITALS: BP 103/61
[2020-07-23] MEDS: MORPHINE SULF INJ 2 MG/ML SYRINGE 1ML IV PRN ×3 (14:00→20:36)
[2020-07-23 17:00] VITALS: BP 115/77
[2020-07-23] MEDS ORDERED: guaiFENesin-DM 100/10mg/5ml SYR PO PRN (18:15)
[2020-07-23] MEDS: chlordiazePOXIDE HCL 25 MG CAP PO PRN (20:06)
[2020-07-23 22:00] VITALS: BP 127/72
[2020-07-24] MEDS: chlordiazePOXIDE HCL 5 MG CAP PO SCH ×4 (00:01→18:23)
[2020-07-24] MEDS: TEMAZEPAM 15 MG CAP PO PRN (00:37)
[2020-07-24 05:00] VITALS: BP 122/68
[2020-07-24] MEDS: PIPERACILLIN-TAZOB 3.375GM 100 ML IV SCH ×3 (05:47→22:26)
[2020-07-24] MEDS: SPIRONOLACTONE 25 MG TAB PO SCH ×2 (05:47→18:00)
[2020-07-24] MEDS: FUROSEMIDE 40 MG/4 ML VIAL IV SCH ×2 (05:50→18:00)
[2020-07-24] MEDS: MORPHINE SULF INJ 2 MG/ML SYRINGE 1ML IV PRN ×4 (06:02→20:08)
[2020-07-24] MEDS: ALBUTEROL SULF HFA 90MCG INH 200DOSE IN SCH ×3 (06:59→20:18)
[2020-07-24] MEDS: BUDESONIDE (INHALATION) 180 MCG IH IN SCH ×2 (06:59→20:18)
[2020-07-24 07:23] LABS: Basophils # (auto) 0 10 ^3/uL (0-0.2); Basophils % (auto) 0.1 % (0.0-2.0); Eosinophils # (auto) 0 10 ^3/uL (0-0.8); Hematocrit 33.4 % (41.0-53.0); Hemoglobin 10.7 g/dL (13.5-17.5); Lymphocytes # (auto) 0.3 10 ^3/uL (0.4-5.4); Lymphocytes % (auto) 3.2 % (10.0-50.0); Mean Corpuscular Hemoglobin 27.2 pg (28.0-32.0); Mean Corpuscular Hgb Conc. 31.9 g/dL (32.0-36.0); Mean Corpuscular Volume 85.3 fL (80.0-100.0); Monocytes # (auto) 0.1 10 ^3/uL (0-1.3); Monocytes % (auto) 1.5 % (0.0-12.0); Neutrophils # (auto) 8.6 10 ^3/uL (1.6-8.6); Neutrophils % (auto) 95.2 % (37.0-80.0); Nucleated Red Blood Cells % 0.1 %; Platelet Count (auto) 194 10^3/uL (140-450); Red Blood Cells 3.92 10^6/uL (4.5-5.90)
[2020-07-24 07:31] LABS: Red Cell Distribution Width 20.4 % (11.8-14.3)
[2020-07-24 07:44] LABS: Potassium 3.7 mmol/L (3.5-5.1)
[2020-07-24 07:49] LABS: BUN/Creatinine Ratio 29.5; Calcium 8.5 mg/dL (8.5-10.1)
[2020-07-24 09:00] VITALS: BP 121/76
[2020-07-24] MEDS: acetaZOLAMIDE 250 MG TAB PO SCH ×2 (10:45→22:26)
[2020-07-24] MEDS: CARVEDILOL 3.125 MG TAB PO SCH ×2 (12:40→22:27)
[2020-07-24] MEDS: DexAMETHasone SOD PHOS 10MG/1ML VIAL INJ IV SCH (12:42)
[2020-07-24] MEDS: DIGOXIN 0.125 MG TAB PO SCH (12:42)
[2020-07-24] MEDS: ZINC SULFATE 220mg CAP or TAB PO SCH (12:42)
[2020-07-24] MEDS: LINEZOLID 600MG/300ML 300 ML IV SCH ×2 (12:42→20:15)
[2020-07-24] MEDS: THIAMINE 100mg/ml INJ (200mg/2ml VIAL) IV SCH (12:42)
[2020-07-24] MEDS: ASCORBIC ACID 1,000 MG TAB PO SCH (12:43)
[2020-07-24] MEDS: ENALAPRIL MALEATE 2.5 MG TAB PO SCH (12:43)
[2020-07-24] MEDS: PANTOPRAZOLE 40 MG TAB PO SCH (12:43)
[2020-07-24] MEDS: CHOLECALCIFEROL (VITD3) 2,000 UNIT CAP PO SCH (12:43)
[2020-07-24 13:00] VITALS: BP 105/64
[2020-07-24 17:00] VITALS: BP 110/69
[2020-07-24 22:00] VITALS: BP 117/72
[2020-07-25] VITALS (7 sets, daily range): BP systolic 110–135; BP diastolic 61–82
[2020-07-25] MEDS: chlordiazePOXIDE HCL 5 MG CAP PO SCH ×4 (00:24→17:29)
[2020-07-25] MEDS: MORPHINE SULF INJ 2 MG/ML SYRINGE 1ML IV PRN ×2 (01:34→06:43)
[2020-07-25 06:20] LABS: Basophils # (auto) 0 10 ^3/uL (0-0.2); Basophils % (auto) 0.1 % (0.0-2.0); Eosinophils # (auto) 0 10 ^3/uL (0-0.8); Eosinophils % (auto) 0.1 % (0.0-7.0); Lymphocytes # (auto) 0.2 10 ^3/uL (0.4-5.4); Mean Corpuscular Hemoglobin 26.7 pg (28.0-32.0); Monocytes # (auto) 0.1 10 ^3/uL (0-1.3)
[2020-07-25 06:23] LABS: Hematocrit 35.1 % (41.0-53.0); Lymphocytes % (auto) 2.6 % (10.0-50.0); Mean Corpuscular Hgb Conc. 31.3 g/dL (32.0-36.0); Mean Corpuscular Volume 85.6 fL (80.0-100.0); Monocytes % (auto) 2.1 % (0.0-12.0); Neutrophils # (auto) 6.7 10 ^3/uL (1.6-8.6); Neutrophils % (auto) 95.1 % (37.0-80.0); Nucleated Red Blood Cells % 0.2 %; Platelet Count (auto) 183 10^3/uL (140-450); Red Blood Cells 4.11 10^6/uL (4.5-5.90)
[2020-07-25 06:26] LABS: Red Cell Distribution Width 20.3 % (11.8-14.3)
[2020-07-25 06:42] LABS: Calcium 8.6 mg/dL (8.5-10.1); Potassium 4.1 mmol/L (3.5-5.1)
[2020-07-25] MEDS: PIPERACILLIN-TAZOB 3.375GM 100 ML IV SCH ×2 (06:42→14:00)
[2020-07-25] MEDS: SPIRONOLACTONE 25 MG TAB PO SCH ×2 (06:42→17:29)
[2020-07-25] MEDS: FUROSEMIDE 40 MG/4 ML VIAL IV SCH ×2 (06:42→17:28)
[2020-07-25 06:48] LABS: BUN/Creatinine Ratio 31.2
[2020-07-25] MEDS: ALBUTEROL SULF HFA 90MCG INH 200DOSE IN SCH ×4 (07:44→22:19)
[2020-07-25] MEDS: BUDESONIDE (INHALATION) 180 MCG IH IN SCH ×2 (07:44→22:19)
[2020-07-25] MEDS: LINEZOLID 600MG/300ML 300 ML IV SCH ×2 (08:00→20:34)
[2020-07-25] MEDS ORDERED: LORazepam 2MG/ML-1ML VIAL IV PRN (13:00)
[2020-07-25] MEDS: DexAMETHasone SOD PHOS 10MG/1ML VIAL INJ IV SCH (14:20)
[2020-07-25] MEDS: ZINC SULFATE 220mg CAP or TAB PO SCH (14:21)
[2020-07-25] MEDS: PANTOPRAZOLE 40 MG TAB PO SCH (14:22)
[2020-07-25] MEDS: CARVEDILOL 3.125 MG TAB PO SCH (14:22)
[2020-07-25] MEDS: DIGOXIN 0.125 MG TAB PO SCH (14:22)
[2020-07-25] MEDS: ASCORBIC ACID 1,000 MG TAB PO SCH (14:23)
[2020-07-25] MEDS: CHOLECALCIFEROL (VITD3) 2,000 UNIT CAP PO SCH (14:23)
[2020-07-25] MEDS: ENALAPRIL MALEATE 2.5 MG TAB PO SCH (14:23)
[2020-07-25] MEDS: THIAMINE 100mg/ml INJ (200mg/2ml VIAL) IV SCH (17:28)
[2020-07-26] MEDS: PIPERACILLIN-TAZOB 3.375GM 100 ML IV SCH ×2 (00:08→06:23)
[2020-07-26] MEDS: chlordiazePOXIDE HCL 5 MG CAP PO SCH ×3 (00:08→12:03)
[2020-07-26] MEDS: MORPHINE SULF INJ 2 MG/ML SYRINGE 1ML IV PRN ×2 (00:16→03:37)
[2020-07-26] MEDS: CARVEDILOL 3.125 MG TAB PO SCH ×3 (00:33→22:00)
[2020-07-26 03:43] VITALS: BP 110/73
[2020-07-26 05:00] VITALS: BP 94/55
[2020-07-26 06:50] VITALS: BP 116/77
[2020-07-26] MEDS: FUROSEMIDE 40 MG/4 ML VIAL IV SCH (07:03)
[2020-07-26] MEDS: SPIRONOLACTONE 25 MG TAB PO SCH ×2 (07:03→17:45)
[2020-07-26] MEDS: LINEZOLID 600MG/300ML 300 ML IV SCH (08:04)
[2020-07-26] MEDS: ALBUTEROL SULF HFA 90MCG INH 200DOSE IN SCH ×3 (09:15→22:13)
[2020-07-26] MEDS: DexAMETHasone SOD PHOS 10MG/1ML VIAL INJ IV SCH (09:36)
[2020-07-26] MEDS: THIAMINE 100mg/ml INJ (200mg/2ml VIAL) IV SCH (09:36)
[2020-07-26] MEDS: ENOXAPARIN SOD 40 MG/0.4 ML SYRINGE SC SCH (09:36)
[2020-07-26] MEDS: DIGOXIN 0.125 MG TAB PO SCH (10:00)
[2020-07-26] MEDS: PANTOPRAZOLE 40 MG TAB PO SCH (10:00)
[2020-07-26] MEDS: BUDESONIDE (INHALATION) 180 MCG IH IN SCH ×2 (10:00→22:13)
[2020-07-26] MEDS: ZINC SULFATE 220mg CAP or TAB PO SCH (10:00)
[2020-07-26] MEDS: ENALAPRIL MALEATE 2.5 MG TAB PO SCH (10:00)
[2020-07-26] MEDS: CHOLECALCIFEROL (VITD3) 2,000 UNIT CAP PO SCH (10:00)
[2020-07-26] MEDS: ASCORBIC ACID 1,000 MG TAB PO SCH (10:00)
[2020-07-26 22:00] VITALS: BP_SYST 84; BP_SYST 89; BP_DIAS 47; BP_DIAS 50
[2020-07-26 23:05] VITALS: BP 104/67
[2020-07-27] VITALS (7 sets, daily range): BP systolic 95–133; BP diastolic 44–93
[2020-07-27] MEDS: MORPHINE SULF INJ 2 MG/ML SYRINGE 1ML IV PRN ×2 (02:37→06:25)
[2020-07-27] MEDS: ALBUTEROL SULF HFA 90MCG INH 200DOSE IN SCH ×3 (06:00→22:05)
[2020-07-27] MEDS: SPIRONOLACTONE 25 MG TAB PO SCH ×2 (06:24→17:46)
[2020-07-27 07:48] LABS: Basophils # (auto) 0 10 ^3/uL (0-0.2); Eosinophils # (auto) 0 10 ^3/uL (0-0.8); Eosinophils % (auto) 0.3 % (0.0-7.0); Hemoglobin 13.5 g/dL (13.5-17.5); Lymphocytes # (auto) 0.4 10 ^3/uL (0.4-5.4); Mean Corpuscular Hemoglobin 26.9 pg (28.0-32.0); Mean Corpuscular Hgb Conc. 31.7 g/dL (32.0-36.0); Monocytes # (auto) 0.2 10 ^3/uL (0-1.3); Monocytes % (auto) 2.1 % (0.0-12.0); Neutrophils % (auto) 92.8 % (37.0-80.0); Red Cell Distribution Width 20.1 % (11.8-14.3)
[2020-07-27 07:53] LABS: Basophils % (auto) 0.1 % (0.0-2.0); Hematocrit 42.4 % (41.0-53.0); Lymphocytes % (auto) 4.7 % (10.0-50.0); Mean Corpuscular Volume 84.8 fL (80.0-100.0); Neutrophils # (auto) 7.7 10 ^3/uL (1.6-8.6); Nucleated Red Blood Cells % 0.2 %; Platelet Count (auto) 207 10^3/uL (140-450); Red Blood Cells 5.01 10^6/uL (4.5-5.90); White Blood Cell 8.3 10^3/uL (4.4-10.8)
[2020-07-27 08:15] LABS: Potassium 4.3 mmol/L (3.5-5.1)
[2020-07-27 08:33] LABS: Albumin 2.7 g/dL (3.4-5.0); Bilirubin, Total 1.9 mg/dL (0.2-1.0); Calcium 9.1 mg/dL (8.5-10.1); Total Protein 6.6 g/dL (6.4-8.2)
[2020-07-27] MEDS: CHOLECALCIFEROL (VITD3) 2,000 UNIT CAP PO SCH (09:46)
[2020-07-27] MEDS: ZINC SULFATE 220mg CAP or TAB PO SCH (09:46)
[2020-07-27] MEDS: PANTOPRAZOLE 40 MG TAB PO SCH (09:46)
[2020-07-27] MEDS: THIAMINE 100mg/ml INJ (200mg/2ml VIAL) IV SCH (09:47)
[2020-07-27] MEDS: DIGOXIN 0.125 MG TAB PO SCH (09:47)
[2020-07-27] MEDS: LACTULOSE 20Gm/30ML SOLN PO SCH ×4 (09:48→23:23)
[2020-07-27] MEDS: ENALAPRIL MALEATE 2.5 MG TAB PO SCH (09:48)
[2020-07-27] MEDS: CARVEDILOL 3.125 MG TAB PO SCH ×2 (09:49→22:00)
[2020-07-27] MEDS: ASCORBIC ACID 1,000 MG TAB PO SCH (09:49)
[2020-07-27] MEDS: ENOXAPARIN SOD 40 MG/0.4 ML SYRINGE SC SCH (09:49)
[2020-07-27] MEDS: DexAMETHasone SOD PHOS 10MG/1ML VIAL INJ IV SCH (09:50)
[2020-07-27] MEDS ORDERED: FUROSEMIDE 40 MG/4 ML VIAL IV SCH (10:00)
[2020-07-27] MEDS: BUDESONIDE (INHALATION) 180 MCG IH IN SCH ×2 (10:00→22:05)
[2020-07-27] MEDS ORDERED: PIPERACILLIN-TAZOB 3.375GM 100 ML IV ONE (13:00)
[2020-07-27] MEDS: FUROSEMIDE 40 MG/4 ML VIAL IV SCH (17:45)
[2020-07-27] MEDS ORDERED: LORazepam 2MG/ML-1ML VIAL IV ONE (19:15)
[2020-07-27] MEDS ORDERED: ALBUMIN 25% 100 ML IV ONE (21:30)
[2020-07-27] MEDS: POTASSIUM EFFERVESENT TAB 25 MEQ PO SCH (22:00)
[2020-07-27] MEDS: PIPERACILLIN-TAZOB 3.375GM 100 ML IV SCH (23:23)
[2020-07-28] VITALS (12 sets, daily range): BP systolic 78–115; BP diastolic 43–78
[2020-07-28] MEDS: LORazepam 2MG/ML-1ML VIAL IV PRN ×4 (00:07→21:57)
[2020-07-28] MEDS ORDERED: ALBUMIN 25% 50 ML IV SCH (01:00)
[2020-07-28] MEDS: LACTULOSE 20Gm/30ML SOLN PO SCH ×3 (06:00→15:30)
[2020-07-28] MEDS: SPIRONOLACTONE 25 MG TAB PO SCH ×2 (06:00→15:30)
[2020-07-28] MEDS: ALBUTEROL SULF HFA 90MCG INH 200DOSE IN SCH ×3 (06:12→22:00)
[2020-07-28] MEDS: BUDESONIDE (INHALATION) 180 MCG IH IN SCH ×2 (06:12→22:00)
[2020-07-28] MEDS: FUROSEMIDE 40 MG/4 ML VIAL IV SCH ×2 (06:30→17:06)
[2020-07-28] MEDS: PIPERACILLIN-TAZOB 3.375GM 100 ML IV SCH ×3 (06:31→21:25)
[2020-07-28 06:37] LABS: Basophils # (auto) 0 10 ^3/uL (0-0.2); Basophils % (auto) 0.2 % (0.0-2.0); Eosinophils # (auto) 0 10 ^3/uL (0-0.8); Eosinophils % (auto) 0.2 % (0.0-7.0); Hematocrit 37.3 % (41.0-53.0); Lymphocytes # (auto) 0.3 10 ^3/uL (0.4-5.4); Lymphocytes % (auto) 4.6 % (10.0-50.0); Mean Corpuscular Hgb Conc. 32.1 g/dL (32.0-36.0); Mean Corpuscular Volume 84.1 fL (80.0-100.0); Monocytes # (auto) 0.2 10 ^3/uL (0-1.3); Monocytes % (auto) 2.8 % (0.0-12.0); Neutrophils # (auto) 6.9 10 ^3/uL (1.6-8.6); Neutrophils % (auto) 92.2 % (37.0-80.0); Nucleated Red Blood Cells % 0.1 %; Platelet Count (auto) 155 10^3/uL (140-450); Red Blood Cells 4.44 10^6/uL (4.5-5.90); White Blood Cell 7.5 10^3/uL (4.4-10.8)
[2020-07-28 06:41] LABS: Red Cell Distribution Width 20.2 % (11.8-14.3)
[2020-07-28 06:55] LABS: Albumin 2.7 g/dL (3.4-5.0); BUN/Creatinine Ratio 22.8; Calcium 8.8 mg/dL (8.5-10.1); Potassium 3.9 mmol/L (3.5-5.1)
[2020-07-28 06:57] LABS: Bilirubin, Total 2.3 mg/dL (0.2-1.0); Total Protein 6.4 g/dL (6.4-8.2)
[2020-07-28] MEDS: ZINC SULFATE 220mg CAP or TAB PO SCH (08:51)
[2020-07-28] MEDS: DexAMETHasone SOD PHOS 10MG/1ML VIAL INJ IV SCH (08:51)
[2020-07-28] MEDS: THIAMINE 100mg/ml INJ (200mg/2ml VIAL) IV SCH (08:51)
[2020-07-28] MEDS: CARVEDILOL 3.125 MG TAB PO SCH ×2 (08:52→22:00)
[2020-07-28] MEDS: POTASSIUM EFFERVESENT TAB 25 MEQ PO SCH ×2 (08:52→22:00)
[2020-07-28] MEDS: DIGOXIN 0.125 MG TAB PO SCH (08:53)
[2020-07-28] MEDS: ENALAPRIL MALEATE 2.5 MG TAB PO SCH (08:53)
[2020-07-28] MEDS: PANTOPRAZOLE 40 MG TAB PO SCH (08:54)
[2020-07-28] MEDS: CHOLECALCIFEROL (VITD3) 2,000 UNIT CAP PO SCH (08:54)
[2020-07-28] MEDS: ASCORBIC ACID 1,000 MG TAB PO SCH (08:54)
[2020-07-28] MEDS: ENOXAPARIN SOD 40 MG/0.4 ML SYRINGE SC SCH (08:54)
[2020-07-28] MEDS ORDERED: SODIUM CHLORIDE 0.9% 250 ML IV ONE (16:30)
[2020-07-28] MEDS ORDERED: ALBUMIN 25% 50 ML IV ONE (17:15)
[2020-07-29] VITALS (7 sets, daily range): BP systolic 96–111; BP diastolic 61–74
[2020-07-29] MEDS: ALBUMIN 25% 50 ML IV SCH ×3 (00:48→17:23)
[2020-07-29] MEDS: PIPERACILLIN-TAZOB 3.375GM 100 ML IV SCH ×3 (05:48→22:52)
[2020-07-29] MEDS: FUROSEMIDE 40 MG/4 ML VIAL IV SCH ×2 (06:00→17:23)
[2020-07-29] MEDS: SPIRONOLACTONE 25 MG TAB PO SCH ×2 (06:00→17:24)
[2020-07-29] MEDS: LACTULOSE 20Gm/30ML SOLN PO SCH ×4 (06:00→17:24)
[2020-07-29] MEDS: BUDESONIDE (INHALATION) 180 MCG IH IN SCH ×2 (06:39→22:00)
[2020-07-29] MEDS: ALBUTEROL SULF HFA 90MCG INH 200DOSE IN SCH ×3 (06:39→22:00)
[2020-07-29] MEDS: PANTOPRAZOLE 40 MG TAB PO SCH (10:00)
[2020-07-29] MEDS: ASCORBIC ACID 1,000 MG TAB PO SCH (10:00)
[2020-07-29] MEDS: CHOLECALCIFEROL (VITD3) 2,000 UNIT CAP PO SCH (10:00)
[2020-07-29] MEDS: POTASSIUM EFFERVESENT TAB 25 MEQ PO SCH ×2 (10:00→22:52)
[2020-07-29] MEDS: ZINC SULFATE 220mg CAP or TAB PO SCH (10:00)
[2020-07-29] MEDS: ENALAPRIL MALEATE 2.5 MG TAB PO SCH (10:00)
[2020-07-29] MEDS: THIAMINE 100mg/ml INJ (200mg/2ml VIAL) IV SCH (10:17)
[2020-07-29] MEDS: DexAMETHasone SOD PHOS 10MG/1ML VIAL INJ IV SCH (10:18)
[2020-07-29] MEDS: CARVEDILOL 3.125 MG TAB PO SCH ×2 (10:18→22:52)
[2020-07-29] MEDS: DIGOXIN 0.125 MG TAB PO SCH (10:19)
[2020-07-29] MEDS: ENOXAPARIN SOD 40 MG/0.4 ML SYRINGE SC SCH (10:19)
[2020-07-29] MEDS: LORazepam 2MG/ML-1ML VIAL IV PRN ×2 (11:23→16:35)
[2020-07-30] MEDS: LORazepam 2MG/ML-1ML VIAL IV PRN ×4 (01:12→19:56)
[2020-07-30 02:10] VITALS: BP 111/74
[2020-07-30 05:18] VITALS: BP 117/86
[2020-07-30] MEDS: FUROSEMIDE 40 MG/4 ML VIAL IV SCH ×2 (05:32→17:04)
[2020-07-30] MEDS: LACTULOSE 20Gm/30ML SOLN PO SCH ×4 (05:32→17:04)
[2020-07-30] MEDS: PIPERACILLIN-TAZOB 3.375GM 100 ML IV SCH ×3 (05:32→22:23)
[2020-07-30] MEDS: SPIRONOLACTONE 25 MG TAB PO SCH ×2 (05:32→17:04)
[2020-07-30] MEDS: ALBUTEROL SULF HFA 90MCG INH 200DOSE IN SCH (06:18)
[2020-07-30] MEDS: BUDESONIDE (INHALATION) 180 MCG IH IN SCH (06:19)
[2020-07-30 07:14] LABS: Basophils # (auto) 0 10 ^3/uL (0-0.2); Basophils % (auto) 0.1 % (0.0-2.0); Eosinophils # (auto) 0 10 ^3/uL (0-0.8); Hemoglobin 11.3 g/dL (13.5-17.5); Neutrophils # (auto) 10.7 10 ^3/uL (1.6-8.6)
[2020-07-30 07:17] LABS: Eosinophils % (auto) 0.1 % (0.0-7.0); Hematocrit 36.1 % (41.0-53.0); Lymphocytes # (auto) 0.4 10 ^3/uL (0.4-5.4); Lymphocytes % (auto) 3.9 % (10.0-50.0); Mean Corpuscular Hemoglobin 26.4 pg (28.0-32.0); Mean Corpuscular Hgb Conc. 31.2 g/dL (32.0-36.0); Mean Corpuscular Volume 84.8 fL (80.0-100.0); Monocytes # (auto) 0.2 10 ^3/uL (0-1.3); Monocytes % (auto) 1.9 % (0.0-12.0); Nucleated Red Blood Cells % 0.1 %; Platelet Count (auto) 129 10^3/uL (140-450); Red Blood Cells 4.26 10^6/uL (4.5-5.90); White Blood Cell 11.4 10^3/uL (4.4-10.8)
[2020-07-30 07:43] LABS: Red Cell Distribution Width 20.3 % (11.8-14.3)
[2020-07-30 07:56] LABS: BUN/Creatinine Ratio 41.5; Calcium 9.1 mg/dL (8.5-10.1)
[2020-07-30 09:00] VITALS: BP 137/98
[2020-07-30] MEDS: ASCORBIC ACID 1,000 MG TAB PO SCH (10:00)
[2020-07-30] MEDS: PANTOPRAZOLE 40 MG TAB PO SCH (10:00)
[2020-07-30] MEDS: POTASSIUM EFFERVESENT TAB 25 MEQ PO SCH (10:00)
[2020-07-30] MEDS: CHOLECALCIFEROL (VITD3) 2,000 UNIT CAP PO SCH (10:00)
[2020-07-30] MEDS: ENALAPRIL MALEATE 2.5 MG TAB PO SCH (10:00)
[2020-07-30] MEDS: ZINC SULFATE 220mg CAP or TAB PO SCH (10:00)
[2020-07-30] MEDS: CARVEDILOL 3.125 MG TAB PO SCH (10:42)
[2020-07-30] MEDS: THIAMINE 100mg/ml INJ (200mg/2ml VIAL) IV SCH (10:42)
[2020-07-30] MEDS: DexAMETHasone SOD PHOS 10MG/1ML VIAL INJ IV SCH (10:42)
[2020-07-30] MEDS: DIGOXIN 0.125 MG TAB PO SCH (10:43)
[2020-07-30] MEDS: ENOXAPARIN SOD 40 MG/0.4 ML SYRINGE SC SCH (10:44)
[2020-07-30 13:00] VITALS: BP 124/91
[2020-07-30] MEDS: ALBUTEROL SULF 2.5 MG/0.5ML(0.5%) NEB SOLN NEB SCH ×2 (14:04→21:58)
[2020-07-30 17:00] VITALS: BP 115/73
[2020-07-30] MEDS: BUDESONIDE (INHALATION) 0.5 MG/2 ML NEB NEB SCH (21:58)
[2020-07-31] MEDS: CARVEDILOL 3.125 MG TAB PO SCH ×3 (00:07→22:00)
[2020-07-31] MEDS: POTASSIUM EFFERVESENT TAB 25 MEQ PO SCH ×3 (00:08→21:24)
[2020-07-31] MEDS: LORazepam 2MG/ML-1ML VIAL IV PRN ×3 (01:22→14:43)
[2020-07-31] MEDS: LACTULOSE 20Gm/30ML SOLN PO SCH ×2 (06:00)
[2020-07-31] MEDS: SPIRONOLACTONE 25 MG TAB PO SCH ×2 (06:00→17:46)
[2020-07-31] MEDS: ALBUTEROL SULF 2.5 MG/0.5ML(0.5%) NEB SOLN NEB SCH ×2 (06:00→20:53)
[2020-07-31 06:10] LABS: Basophils # (auto) 0 10 ^3/uL (0-0.2); Eosinophils # (auto) 0 10 ^3/uL (0-0.8); Eosinophils % (auto) 0.2 % (0.0-7.0); Monocytes # (auto) 0.1 10 ^3/uL (0-1.3); Neutrophils # (auto) 10.2 10 ^3/uL (1.6-8.6); Red Blood Cells 3.96 10^6/uL (4.5-5.90); White Blood Cell 10.8 10^3/uL (4.4-10.8)
[2020-07-31 06:12] LABS: Basophils % (auto) 0.1 % (0.0-2.0); Hematocrit 33.3 % (41.0-53.0); Hemoglobin 10.5 g/dL (13.5-17.5); Lymphocytes # (auto) 0.5 10 ^3/uL (0.4-5.4); Lymphocytes % (auto) 4.2 % (10.0-50.0); Mean Corpuscular Hemoglobin 26.6 pg (28.0-32.0); Mean Corpuscular Hgb Conc. 31.6 g/dL (32.0-36.0); Mean Corpuscular Volume 84.2 fL (80.0-100.0); Monocytes % (auto) 1.4 % (0.0-12.0); Neutrophils % (auto) 94.1 % (37.0-80.0); Platelet Count (auto) 103 10^3/uL (140-450)
[2020-07-31 06:21] LABS: Red Cell Distribution Width 20.3 % (11.8-14.3)
[2020-07-31 06:30] LABS: Potassium 4.6 mmol/L (3.5-5.1)
[2020-07-31 06:38] LABS: BUN/Creatinine Ratio 35.3; Calcium 9.2 mg/dL (8.5-10.1)
[2020-07-31] MEDS: PIPERACILLIN-TAZOB 3.375GM 100 ML IV SCH ×3 (06:49→21:24)
[2020-07-31] MEDS: FUROSEMIDE 40 MG/4 ML VIAL IV SCH ×2 (06:49→17:46)
[2020-07-31 08:00] VITALS: BP 130/76
[2020-07-31] MEDS: BUDESONIDE (INHALATION) 0.5 MG/2 ML NEB NEB SCH ×2 (09:41→20:53)
[2020-07-31] MEDS: ASCORBIC ACID 1,000 MG TAB PO SCH (10:00)
[2020-07-31] MEDS: CHOLECALCIFEROL (VITD3) 2,000 UNIT CAP PO SCH (10:00)
[2020-07-31] MEDS: PANTOPRAZOLE 40 MG TAB PO SCH (10:00)
[2020-07-31] MEDS: ZINC SULFATE 220mg CAP or TAB PO SCH (10:00)
[2020-07-31] MEDS: THIAMINE 100mg/ml INJ (200mg/2ml VIAL) IV SCH (10:35)
[2020-07-31] MEDS: DexAMETHasone SOD PHOS 10MG/1ML VIAL INJ IV SCH (10:35)
[2020-07-31] MEDS: DIGOXIN 0.125 MG TAB PO SCH (10:37)
[2020-07-31] MEDS: ENOXAPARIN SOD 40 MG/0.4 ML SYRINGE SC SCH (10:38)
[2020-07-31] MEDS: ENALAPRIL MALEATE 2.5 MG TAB PO SCH (10:38)
[2020-07-31 12:06] VITALS: BP 130/76
[2020-07-31 22:00] VITALS: BP 91/41
[2020-07-31] MEDS: ALBUMIN 25% 50 ML IV SCH (23:20)
[2020-08-01 01:30] VITALS: BP 101/54
[2020-08-01 05:00] VITALS: BP_SYST 106; BP_SYST 117; BP_DIAS 62
[2020-08-01] MEDS: ALBUMIN 25% 50 ML IV SCH ×3 (05:24→05:56)
[2020-08-01] MEDS: PIPERACILLIN-TAZOB 3.375GM 100 ML IV SCH ×3 (05:32→22:02)
[2020-08-01] MEDS: FUROSEMIDE 40 MG/4 ML VIAL IV SCH ×2 (05:36→18:00)
[2020-08-01 05:58] LABS: Basophils # (auto) 0 10 ^3/uL (0-0.2); Eosinophils # (auto) 0 10 ^3/uL (0-0.8); Eosinophils % (auto) 0.1 % (0.0-7.0); Hemoglobin 11.1 g/dL (13.5-17.5); Monocytes # (auto) 0.2 10 ^3/uL (0-1.3); Nucleated Red Blood Cells % 0.1 %
[2020-08-01] MEDS: SPIRONOLACTONE 25 MG TAB PO SCH ×2 (06:00→18:00)
[2020-08-01 06:01] LABS: Basophils % (auto) 0.2 % (0.0-2.0); Hematocrit 35.9 % (41.0-53.0); Lymphocytes # (auto) 0.4 10 ^3/uL (0.4-5.4); Lymphocytes % (auto) 3.2 % (10.0-50.0); Mean Corpuscular Hemoglobin 26.1 pg (28.0-32.0); Mean Corpuscular Hgb Conc. 30.9 g/dL (32.0-36.0); Mean Corpuscular Volume 84.5 fL (80.0-100.0); Monocytes % (auto) 1.4 % (0.0-12.0); Neutrophils # (auto) 12.2 10 ^3/uL (1.6-8.6); Neutrophils % (auto) 95.1 % (37.0-80.0); Platelet Count (auto) 84 10^3/uL (140-450); Red Blood Cells 4.25 10^6/uL (4.5-5.90); White Blood Cell 12.8 10^3/uL (4.4-10.8)
[2020-08-01 06:12] LABS: Calcium 9.3 mg/dL (8.5-10.1); Potassium 4.2 mmol/L (3.5-5.1)
[2020-08-01 06:15] LABS: BUN/Creatinine Ratio 36.5
[2020-08-01 06:16] LABS: Red Cell Distribution Width 20.2 % (11.8-14.3)
[2020-08-01] MEDS: BUDESONIDE (INHALATION) 0.5 MG/2 ML NEB NEB SCH ×2 (06:53→22:23)
[2020-08-01] MEDS: ALBUTEROL SULF 2.5 MG/0.5ML(0.5%) NEB SOLN NEB SCH ×3 (06:53→22:23)
[2020-08-01 09:37] VITALS: BP 100/67
[2020-08-01] MEDS: CARVEDILOL 3.125 MG TAB PO SCH ×2 (10:00→22:00)
[2020-08-01] MEDS: ENOXAPARIN SOD 40 MG/0.4 ML SYRINGE SC SCH (10:00)
[2020-08-01] MEDS: ENALAPRIL MALEATE 2.5 MG TAB PO SCH (10:00)
[2020-08-01] MEDS: POTASSIUM EFFERVESENT TAB 25 MEQ PO SCH ×2 (10:00→22:00)
[2020-08-01] MEDS: ZINC SULFATE 220mg CAP or TAB PO SCH (10:00)
[2020-08-01] MEDS: CHOLECALCIFEROL (VITD3) 2,000 UNIT CAP PO SCH (10:00)
[2020-08-01] MEDS: PANTOPRAZOLE 40 MG TAB PO SCH (10:00)
[2020-08-01] MEDS: ASCORBIC ACID 1,000 MG TAB PO SCH (10:00)
[2020-08-01] MEDS: THIAMINE 100mg/ml INJ (200mg/2ml VIAL) IV SCH (11:24)
[2020-08-01] MEDS: DexAMETHasone SOD PHOS 10MG/1ML VIAL INJ IV SCH (11:25)
[2020-08-01] MEDS: DIGOXIN 0.125 MG TAB PO SCH (11:26)
[2020-08-01] MEDS ORDERED: ALBUMIN 25% 50 ML IV ONE (14:00)
[2020-08-01 14:14] VITALS: BP 92/68
[2020-08-01] MEDS: LORazepam 2MG/ML-1ML VIAL IV PRN ×2 (14:34→22:03)
[2020-08-01 17:00] VITALS: BP 113/65
[2020-08-01 22:34] VITALS: BP 97/48
[2020-08-02] MEDS: LORazepam 2MG/ML-1ML VIAL IV PRN ×3 (02:19→21:00)
[2020-08-02 05:00] VITALS: BP 94/47
[2020-08-02] MEDS: SPIRONOLACTONE 25 MG TAB PO SCH ×2 (06:00→18:00)
[2020-08-02] MEDS: FUROSEMIDE 40 MG/4 ML VIAL IV SCH ×2 (06:00→18:00)
[2020-08-02] MEDS: PIPERACILLIN-TAZOB 3.375GM 100 ML IV SCH ×3 (06:18→21:45)
[2020-08-02 07:20] LABS: Basophils # (auto) 0 10 ^3/uL (0-0.2); Eosinophils # (auto) 0 10 ^3/uL (0-0.8); Eosinophils % (auto) 0.1 % (0.0-7.0); Lymphocytes # (auto) 0.3 10 ^3/uL (0.4-5.4); Monocytes # (auto) 0.1 10 ^3/uL (0-1.3); Platelet Count (auto) 74 10^3/uL (140-450)
[2020-08-02 07:22] LABS: Hematocrit 31.7 % (41.0-53.0); Hemoglobin 9.9 g/dL (13.5-17.5); Mean Corpuscular Hemoglobin 26.5 pg (28.0-32.0); Mean Corpuscular Hgb Conc. 31.3 g/dL (32.0-36.0); Mean Corpuscular Volume 84.5 fL (80.0-100.0); Monocytes % (auto) 1.2 % (0.0-12.0); Neutrophils % (auto) 95.7 % (37.0-80.0); Red Blood Cells 3.75 10^6/uL (4.5-5.90); Red Cell Distribution Width 19.9 % (11.8-14.3); White Blood Cell 10.4 10^3/uL (4.4-10.8)
[2020-08-02] MEDS: ALBUTEROL SULF 2.5 MG/0.5ML(0.5%) NEB SOLN NEB SCH ×2 (07:25→22:35)
[2020-08-02] MEDS: BUDESONIDE (INHALATION) 0.5 MG/2 ML NEB NEB SCH ×2 (07:25→22:35)
[2020-08-02 07:42] LABS: Potassium 4.1 mmol/L (3.5-5.1)
[2020-08-02 07:49] LABS: BUN/Creatinine Ratio 47.1; Calcium 9.1 mg/dL (8.5-10.1)
[2020-08-02 09:00] VITALS: BP 114/75
[2020-08-02] MEDS: CHOLECALCIFEROL (VITD3) 2,000 UNIT CAP PO SCH (10:00)
[2020-08-02] MEDS: DIGOXIN 0.125 MG TAB PO SCH (10:00)
[2020-08-02] MEDS: ENOXAPARIN SOD 40 MG/0.4 ML SYRINGE SC SCH (10:00)
[2020-08-02] MEDS: POTASSIUM EFFERVESENT TAB 25 MEQ PO SCH ×2 (10:00→22:00)
[2020-08-02] MEDS: ENALAPRIL MALEATE 2.5 MG TAB PO SCH (10:00)
[2020-08-02] MEDS: ZINC SULFATE 220mg CAP or TAB PO SCH (10:00)
[2020-08-02] MEDS: ASCORBIC ACID 1,000 MG TAB PO SCH (10:00)
[2020-08-02] MEDS: CARVEDILOL 3.125 MG TAB PO SCH ×2 (10:00→22:00)
[2020-08-02] MEDS: PANTOPRAZOLE 40 MG TAB PO SCH (10:00)
[2020-08-02] MEDS ORDERED: LORazepam 2MG/ML-1ML VIAL IV ONE (10:30)
[2020-08-02] MEDS: DexAMETHasone SOD PHOS 10MG/1ML VIAL INJ IV SCH (12:10)
[2020-08-02] MEDS: THIAMINE 100mg/ml INJ (200mg/2ml VIAL) IV SCH (12:10)
[2020-08-02 12:35] VITALS: BP 117/58
[2020-08-02] MEDS: DIGOXIN (250MCG/ML) 2 ML AMPULE IV SCH (16:56)
[2020-08-02 17:00] VITALS: BP 116/62
[2020-08-02 22:00] VITALS: BP 113/63
[2020-08-03 05:00] VITALS: BP 115/72
[2020-08-03] MEDS: SPIRONOLACTONE 25 MG TAB PO SCH ×2 (05:45→18:00)
[2020-08-03] MEDS: PIPERACILLIN-TAZOB 3.375GM 100 ML IV SCH (05:45)
[2020-08-03] MEDS: FUROSEMIDE 40 MG/4 ML VIAL IV SCH ×2 (05:45→17:56)
[2020-08-03] MEDS: ALBUTEROL SULF 2.5 MG/0.5ML(0.5%) NEB SOLN NEB SCH ×2 (06:00→22:00)
[2020-08-03 06:20] LABS: Basophils # (auto) 0 10 ^3/uL (0-0.2); Eosinophils # (auto) 0 10 ^3/uL (0-0.8); Eosinophils % (auto) 0.3 % (0.0-7.0); Hemoglobin 9.9 g/dL (13.5-17.5); Lymphocytes # (auto) 0.4 10 ^3/uL (0.4-5.4)
[2020-08-03 06:24] LABS: Basophils % (auto) 0.2 % (0.0-2.0); Hematocrit 31.5 % (41.0-53.0); Lymphocytes % (auto) 2.8 % (10.0-50.0); Mean Corpuscular Hemoglobin 26.4 pg (28.0-32.0); Mean Corpuscular Hgb Conc. 31.5 g/dL (32.0-36.0); Monocytes # (auto) 0.3 10 ^3/uL (0-1.3); Monocytes % (auto) 1.7 % (0.0-12.0); Neutrophils # (auto) 14.4 10 ^3/uL (1.6-8.6); Nucleated Red Blood Cells % 0.1 %; Platelet Count (auto) 96 10^3/uL (140-450); Red Blood Cells 3.75 10^6/uL (4.5-5.90); White Blood Cell 15.1 10^3/uL (4.4-10.8)
[2020-08-03 06:41] LABS: Calcium 9.3 mg/dL (8.5-10.1); Potassium 4.3 mmol/L (3.5-5.1)
[2020-08-03 06:44] LABS: BUN/Creatinine Ratio 40.4
[2020-08-03 07:08] LABS: Red Cell Distribution Width 20.9 % (11.8-14.3)
[2020-08-03 09:00] VITALS: BP 126/77
[2020-08-03] MEDS ORDERED: DIGOXIN (250MCG/ML) 2 ML AMPULE IV SCH (10:00)
[2020-08-03] MEDS: BUDESONIDE (INHALATION) 0.5 MG/2 ML NEB NEB SCH ×2 (10:00→22:00)
[2020-08-03] MEDS: DexAMETHasone SOD PHOS 10MG/1ML VIAL INJ IV SCH (10:51)
[2020-08-03] MEDS: THIAMINE 100mg/ml INJ (200mg/2ml VIAL) IV SCH (10:51)
[2020-08-03] MEDS: ZINC SULFATE 220mg CAP or TAB PO SCH (10:52)
[2020-08-03] MEDS: ENALAPRIL MALEATE 2.5 MG TAB PO SCH (10:53)
[2020-08-03] MEDS: POTASSIUM EFFERVESENT TAB 25 MEQ PO SCH (10:53)
[2020-08-03] MEDS: CARVEDILOL 3.125 MG TAB PO SCH ×2 (10:53→22:00)
[2020-08-03] MEDS: PANTOPRAZOLE 40 MG TAB PO SCH (10:53)
[2020-08-03] MEDS: CHOLECALCIFEROL (VITD3) 2,000 UNIT CAP PO SCH (10:54)
[2020-08-03] MEDS: ENOXAPARIN SOD 40 MG/0.4 ML SYRINGE SC SCH (10:54)
[2020-08-03] MEDS: ASCORBIC ACID 1,000 MG TAB PO SCH (10:54)
[2020-08-03] MEDS: DIGOXIN (250MCG/ML) 2 ML AMPULE IV SCH (11:00)
[2020-08-03] MEDS: LORazepam 2MG/ML-1ML VIAL IV PRN (11:00)
[2020-08-03 13:14] VITALS: BP 100/58
[2020-08-03 14:54] LABS: INR 1.24 (0.9-1.15)
[2020-08-03 16:41] VITALS: BP 126/76
[2020-08-03] MEDS ORDERED: TPN PER PHARMACY 0 ML IV SCH (19:45)
[2020-08-03] MEDS ORDERED: AMINO ACID INFUSION IN D5W 2,000 ML IV NR (20:30)
[2020-08-03 22:00] VITALS: BP 89/59
[2020-08-04 05:00] VITALS: BP 101/64
[2020-08-04 05:55] LABS: Basophils # (auto) 0 10 ^3/uL (0-0.2); Eosinophils # (auto) 0.1 10 ^3/uL (0-0.8); Eosinophils % (auto) 0.6 % (0.0-7.0); Mean Corpuscular Hemoglobin 26.8 pg (28.0-32.0); Monocytes # (auto) 0.2 10 ^3/uL (0-1.3); White Blood Cell 10.3 10^3/uL (4.4-10.8)
[2020-08-04 05:58] LABS: Basophils % (auto) 0.1 % (0.0-2.0); Hematocrit 33.7 % (41.0-53.0); Hemoglobin 10.7 g/dL (13.5-17.5); Lymphocytes # (auto) 0.4 10 ^3/uL (0.4-5.4); Lymphocytes % (auto) 4.4 % (10.0-50.0); Mean Corpuscular Hgb Conc. 31.9 g/dL (32.0-36.0); Mean Corpuscular Volume 84.1 fL (80.0-100.0); Monocytes % (auto) 1.9 % (0.0-12.0); Neutrophils # (auto) 9.5 10 ^3/uL (1.6-8.6); Platelet Count (auto) 123 10^3/uL (140-450)
[2020-08-04] MEDS: SPIRONOLACTONE 25 MG TAB PO SCH ×2 (06:00→18:00)
[2020-08-04] MEDS: BUDESONIDE (INHALATION) 0.5 MG/2 ML NEB NEB SCH ×2 (06:00→23:52)
[2020-08-04] MEDS: FUROSEMIDE 40 MG/4 ML VIAL IV SCH ×2 (06:00→18:28)
[2020-08-04] MEDS: ALBUTEROL SULF 2.5 MG/0.5ML(0.5%) NEB SOLN NEB SCH ×3 (06:00→23:52)
[2020-08-04 06:14] LABS: Potassium 4.1 mmol/L (3.5-5.1)
[2020-08-04 06:20] LABS: Red Cell Distribution Width 20.4 % (11.8-14.3)
[2020-08-04 06:22] LABS: Albumin 2.6 g/dL (3.4-5.0); BUN/Creatinine Ratio 39.7; Bilirubin, Total 1.7 mg/dL (0.2-1.0); Magnesium 2.2 mg/dL (1.6-2.6); Phosphorus 2.7 mg/dL (2.5-4.90); Pre Albumin 8.8 mg/dL (20.0-40.0); Total Protein 7.1 g/dL (6.4-8.2)
[2020-08-04 09:00] VITALS: BP 111/57
[2020-08-04] MEDS: LORazepam 2MG/ML-1ML VIAL IV PRN ×2 (09:29→18:40)
[2020-08-04] MEDS: PANTOPRAZOLE 40 MG TAB PO SCH (11:36)
[2020-08-04] MEDS: CARVEDILOL 3.125 MG TAB PO SCH ×2 (11:37→22:00)
[2020-08-04] MEDS: ASCORBIC ACID 1,000 MG TAB PO SCH (11:37)
[2020-08-04] MEDS: ENALAPRIL MALEATE 2.5 MG TAB PO SCH (11:37)
[2020-08-04] MEDS: CHOLECALCIFEROL (VITD3) 2,000 UNIT CAP PO SCH (11:37)
[2020-08-04] MEDS: ENOXAPARIN SOD 40 MG/0.4 ML SYRINGE SC SCH (11:37)
[2020-08-04] MEDS: DIGOXIN (250MCG/ML) 2 ML AMPULE IV SCH (11:38)
[2020-08-04 13:09] VITALS: BP 108/57
[2020-08-04 17:07] VITALS: BP 103/61
[2020-08-04] MEDS ORDERED: DEXTROSE (50%) 50ML SYRG IV SCH (18:00)
[2020-08-04] MEDS: InsuLIN REG 1unit/0.01ml Soln (100units/ml) SC SCH (18:00)
[2020-08-04] MEDS: ACCU-CHEK COMFORT CURVE STRIP VI SCH (18:29)
[2020-08-04] MEDS ORDERED: PPN PER PHARMACY IV NR ×8 (20:00)
[2020-08-04 22:00] VITALS: BP 126/66
[2020-08-05] MEDS: ACCU-CHEK COMFORT CURVE STRIP VI SCH ×4 (00:11→18:00)
[2020-08-05] MEDS ORDERED: ACETAMINOPHEN 325 MG TAB PO PRN (00:30)
[2020-08-05 04:55] VITALS: BP 107/67
[2020-08-05] MEDS: SPIRONOLACTONE 25 MG TAB PO SCH ×2 (06:00→18:00)
[2020-08-05] MEDS: InsuLIN REG 1unit/0.01ml Soln (100units/ml) SC SCH ×4 (06:00→18:00)
[2020-08-05] MEDS: FUROSEMIDE 40 MG/4 ML VIAL IV SCH ×2 (06:30→18:00)
[2020-08-05] MEDS: BUDESONIDE (INHALATION) 0.5 MG/2 ML NEB NEB SCH ×2 (07:00→22:29)
[2020-08-05] MEDS: ALBUTEROL SULF 2.5 MG/0.5ML(0.5%) NEB SOLN NEB SCH ×3 (07:00→22:29)
[2020-08-05 07:57] LABS: Albumin 2.5 g/dL (3.4-5.0); Calcium 8.8 mg/dL (8.5-10.1); Magnesium 2.2 mg/dL (1.6-2.6); Potassium 3.6 mmol/L (3.5-5.1)
[2020-08-05 08:02] LABS: BUN/Creatinine Ratio 48.9; Total Protein 7.3 g/dL (6.4-8.2)
[2020-08-05 09:00] VITALS: BP 101/53
[2020-08-05] MEDS: CARVEDILOL 3.125 MG TAB PO SCH ×2 (10:00→22:00)
[2020-08-05] MEDS: CHOLECALCIFEROL (VITD3) 2,000 UNIT CAP PO SCH (10:00)
[2020-08-05] MEDS: ENALAPRIL MALEATE 2.5 MG TAB PO SCH (10:00)
[2020-08-05] MEDS: ASCORBIC ACID 1,000 MG TAB PO SCH (10:00)
[2020-08-05] MEDS: PANTOPRAZOLE 40 MG TAB PO SCH (10:00)
[2020-08-05] MEDS: ENOXAPARIN SOD 40 MG/0.4 ML SYRINGE SC SCH (10:00)
[2020-08-05] MEDS: DIGOXIN (250MCG/ML) 2 ML AMPULE IV SCH (10:45)
[2020-08-05 13:00] VITALS: BP 115/61
[2020-08-05] MEDS: LORazepam 2MG/ML-1ML VIAL IV PRN (14:08)
[2020-08-05] MEDS: HALOPERIDOL LACTATE 5 MG/ML INJ VIAL IM PRN (15:24)
[2020-08-05 16:56] VITALS: BP 113/75
[2020-08-05] MEDS ORDERED: PPN PER PHARMACY IV NR ×9 (20:00)
[2020-08-05 22:00] VITALS: BP 121/61
[2020-08-06] VITALS (8 sets, daily range): BP systolic 114–130; BP diastolic 56–66
[2020-08-06] MEDS: ACCU-CHEK COMFORT CURVE STRIP VI SCH ×5 (00:23→23:55)
[2020-08-06] MEDS: HALOPERIDOL LACTATE 5 MG/ML INJ VIAL IM PRN (02:17)
[2020-08-06] MEDS: LORazepam 2MG/ML-1ML VIAL IV PRN ×3 (04:10→23:21)
[2020-08-06] MEDS: SPIRONOLACTONE 25 MG TAB PO SCH ×2 (06:00→17:42)
[2020-08-06] MEDS: InsuLIN REG 1unit/0.01ml Soln (100units/ml) SC SCH ×5 (06:00→23:54)
[2020-08-06] MEDS: ALBUTEROL SULF 2.5 MG/0.5ML(0.5%) NEB SOLN NEB SCH ×3 (06:22→22:43)
[2020-08-06] MEDS: BUDESONIDE (INHALATION) 0.5 MG/2 ML NEB NEB SCH ×2 (06:23→22:43)
[2020-08-06] MEDS: FUROSEMIDE 40 MG/4 ML VIAL IV SCH ×2 (06:25→17:42)
[2020-08-06 08:13] LABS: Basophils # (auto) 0 10 ^3/uL (0-0.2); Eosinophils # (auto) 0.1 10 ^3/uL (0-0.8); Eosinophils % (auto) 1.1 % (0.0-7.0); Neutrophils % (auto) 93.8 % (37.0-80.0)
[2020-08-06 08:15] LABS: Basophils % (auto) 0.1 % (0.0-2.0); Hematocrit 31.2 % (41.0-53.0); Hemoglobin 9.9 g/dL (13.5-17.5); Lymphocytes # (auto) 0.4 10 ^3/uL (0.4-5.4); Lymphocytes % (auto) 3.7 % (10.0-50.0); Mean Corpuscular Hemoglobin 26.6 pg (28.0-32.0); Mean Corpuscular Hgb Conc. 31.6 g/dL (32.0-36.0); Mean Corpuscular Volume 84.3 fL (80.0-100.0); Monocytes # (auto) 0.1 10 ^3/uL (0-1.3); Monocytes % (auto) 1.3 % (0.0-12.0); Neutrophils # (auto) 10.5 10 ^3/uL (1.6-8.6); Platelet Count (auto) 186 10^3/uL (140-450); Red Blood Cells 3.71 10^6/uL (4.5-5.90); White Blood Cell 11.2 10^3/uL (4.4-10.8)
[2020-08-06 08:18] LABS: Red Cell Distribution Width 20.6 % (11.8-14.3)
[2020-08-06 08:47] LABS: Potassium 3.4 mmol/L (3.5-5.1)
[2020-08-06 09:01] LABS: Albumin 2.5 g/dL (3.4-5.0); BUN/Creatinine Ratio 42.9; Bilirubin, Total 2.2 mg/dL (0.2-1.0); Calcium 8.9 mg/dL (8.5-10.1); Magnesium 2.4 mg/dL (1.6-2.6); Phosphorus 2.8 mg/dL (2.5-4.90); Total Protein 7.4 g/dL (6.4-8.2)
[2020-08-06] MEDS: PANTOPRAZOLE 40 MG TAB PO SCH (10:00)
[2020-08-06] MEDS: DIGOXIN (250MCG/ML) 2 ML AMPULE IV SCH ×2 (10:00→10:55)
[2020-08-06] MEDS: CARVEDILOL 3.125 MG TAB PO SCH ×2 (10:00→21:36)
[2020-08-06] MEDS: ASCORBIC ACID 1,000 MG TAB PO SCH (10:00)
[2020-08-06] MEDS: ENALAPRIL MALEATE 2.5 MG TAB PO SCH (10:00)
[2020-08-06] MEDS: CHOLECALCIFEROL (VITD3) 2,000 UNIT CAP PO SCH (10:00)
[2020-08-06] MEDS ORDERED: LORazepam 2MG/ML-1ML VIAL ONE (10:13)
[2020-08-06] MEDS: POTASSIUM CHL 20MEQ/100ML 100 ML IV SCH ×2 (10:15→12:15)
[2020-08-06] MEDS: ENOXAPARIN SOD 40 MG/0.4 ML SYRINGE SC SCH (10:56)
[2020-08-06] MEDS ORDERED: PPN PER PHARMACY IV NR ×9 (20:00)
[2020-08-06] MEDS ORDERED: dilTIAZem 25 MG/5 ML VIAL IV ONE (22:45)
[2020-08-07] MEDS: HALOPERIDOL LACTATE 5 MG/ML INJ VIAL IM PRN (02:39)
[2020-08-07 05:00] VITALS: BP 123/69
[2020-08-07] MEDS: ACCU-CHEK COMFORT CURVE STRIP VI SCH ×2 (05:30→12:00)
[2020-08-07] MEDS: SPIRONOLACTONE 25 MG TAB PO SCH (05:30)
[2020-08-07] MEDS: InsuLIN REG 1unit/0.01ml Soln (100units/ml) SC SCH ×2 (05:30→12:00)
[2020-08-07] MEDS: FUROSEMIDE 40 MG/4 ML VIAL IV SCH (05:31)
[2020-08-07] MEDS: ALBUTEROL SULF 2.5 MG/0.5ML(0.5%) NEB SOLN NEB SCH (06:19)
[2020-08-07] MEDS: BUDESONIDE (INHALATION) 0.5 MG/2 ML NEB NEB SCH (06:19)
[2020-08-07] MEDS: LORazepam 2MG/ML-1ML VIAL IV PRN (08:00)
[2020-08-07 08:02] LABS: Basophils # (auto) 0.1 10 ^3/uL (0-0.2); Basophils % (auto) 0.7 % (0.0-2.0); Eosinophils # (auto) 0.1 10 ^3/uL (0-0.8); Eosinophils % (auto) 1.5 % (0.0-7.0); Hematocrit 29.8 % (41.0-53.0); Hemoglobin 9.5 g/dL (13.5-17.5); Lymphocytes # (auto) 0.3 10 ^3/uL (0.4-5.4); Lymphocytes % (auto) 3.5 % (10.0-50.0); Mean Corpuscular Volume 84.4 fL (80.0-100.0); Monocytes # (auto) 0.2 10 ^3/uL (0-1.3); Monocytes % (auto) 2.2 % (0.0-12.0); Neutrophils # (auto) 8.9 10 ^3/uL (1.6-8.6); Neutrophils % (auto) 92.1 % (37.0-80.0); Platelet Count (auto) 244 10^3/uL (140-450); Red Blood Cells 3.53 10^6/uL (4.5-5.90); White Blood Cell 9.6 10^3/uL (4.4-10.8)
[2020-08-07 08:03] LABS: Potassium 3.6 mmol/L (3.5-5.1)
[2020-08-07 08:10] LABS: Albumin 2.4 g/dL (3.4-5.0); BUN/Creatinine Ratio 42.9; Bilirubin, Total 2.2 mg/dL (0.2-1.0); Calcium 8.9 mg/dL (8.5-10.1); Magnesium 2.2 mg/dL (1.6-2.6); Phosphorus 3.1 mg/dL (2.5-4.90); Total Protein 7.7 g/dL (6.4-8.2)
[2020-08-07 08:15] LABS: Red Cell Distribution Width 20.8 % (11.8-14.3)
[2020-08-07] MEDS ORDERED: MORPHINE SULF INJ 2 MG/ML SYRINGE 1ML IV PRN (08:45)
[2020-08-07] MEDS: PANTOPRAZOLE 40 MG TAB PO SCH (10:00)
[2020-08-07] MEDS: CARVEDILOL 3.125 MG TAB PO SCH (10:00)
[2020-08-07] MEDS: ASCORBIC ACID 1,000 MG TAB PO SCH (10:00)
[2020-08-07] MEDS: DIGOXIN (250MCG/ML) 2 ML AMPULE IV SCH (10:00)
[2020-08-07] MEDS: ENOXAPARIN SOD 40 MG/0.4 ML SYRINGE SC SCH (10:00)
[2020-08-07] MEDS: ENALAPRIL MALEATE 2.5 MG TAB PO SCH (10:00)
[2020-08-07] MEDS: CHOLECALCIFEROL (VITD3) 2,000 UNIT CAP PO SCH (10:00)
== END 2020-08-07 16:35 | disposition expired | DRG 720 ==
LOC: ER 14:11 → TELE 14:12 → TELE-EAST 20:30 → TELE-E-ADS 07-25 11:39 → TELE-EAST 08-07 11:44
PROVIDERS: ADMIT Internal Medicine; ATTEND Internal Medicine Pulmonary Disease
PROC: 5A09357 Assistance with Respiratory Ventilation, Less than 24 Consecutive Hours, Continuous Positive Airway Pressure (ICD-10-PCS; 2020-07-25)
PROC: 5A09357 Assistance with Respiratory Ventilation, Less than 24 Consecutive Hours, Continuous Positive Airway Pressure (ICD-10-PCS; 2020-07-26)
PROC: 5A09557 Assistance with Respiratory Ventilation, Greater than 96 Consecutive Hours, Continuous Positive Airway Pressure (ICD-10-PCS; principal; 2020-07-27)
DX: A41.89 Other specified sepsis (principal); U07.1 COVID-19; J12.89 Other viral pneumonia; I50.43 Acute on chronic combined systolic (congestive) and diastolic (congestive) heart failure; E87.8 Other disorders of electrolyte and fluid balance, not elsewhere classified; E87.1 Hypo-osmolality and hyponatremia; L03.311 Cellulitis of abdominal wall; N49.2 Inflammatory disorders of scrotum; E87.6 Hypokalemia; Z51.5 Encounter for palliative care; Z66 Do not resuscitate; I42.9 Cardiomyopathy, unspecified; K21.9 Gastro-esophageal reflux disease without esophagitis; N18.9 Chronic kidney disease, unspecified; E66.3 Overweight; E03.9 Hypothyroidism, unspecified; F15.10 Other stimulant abuse, uncomplicated; N17.9 Acute kidney failure, unspecified; N39.0 Urinary tract infection, site not specified; N50.89 Other specified disorders of the male genital organs; R18.8 Other ascites; R57.0 Cardiogenic shock; J96.02 Acute respiratory failure with hypercapnia; G93.41 Metabolic encephalopathy; E43 Unspecified severe protein-calorie malnutrition; K72.90 Hepatic failure, unspecified without coma; E88.09 Other disorders of plasma-protein metabolism, not elsewhere classified; D64.9 Anemia, unspecified; K74.60 Unspecified cirrhosis of liver; K50.90 Crohn's disease, unspecified, without complications; Z91.19 Patient's noncompliance with other medical treatment and regimen; B37.9 Candidiasis, unspecified; Z88.8 Allergy status to other drugs, medicaments and biological substances; F10.10 Alcohol abuse, uncomplicated; L03.116 Cellulitis of left lower limb; L03.115 Cellulitis of right lower limb; F17.200 Nicotine dependence, unspecified, uncomplicated; J44.9 Chronic obstructive pulmonary disease, unspecified; J44.0 Chronic obstructive pulmonary disease with (acute) lower respiratory infection; R74.01 Elevation of levels of liver transaminase levels; Z68.26 Body mass index [BMI] 26.0-26.9, adult
CPT/HCPCS: 36415; 36600; 71045; 76604; 76705; 80048; 80053; 80162; 80307; 80329; 81001; 82040; 82140; 82805; 82962; 83605; 83735; 83880; 84100; 84443; 84478; 84484; 85014; 85018; 85025; 85379; 85610; 85730; 87040; 87081; 87086; 87088; 87426; 93005; 94640; 94660; 96365; 96366; 96368; 96375; G0378; J0696; J1100; J1956; J2001; J2543; J3490; J7131; P9047